=== PATIENT | female | born 2000 | race Caucasian/White ===

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

== ENCOUNTER → 2020-01-27 12:35 | Outpatient (BNVA) | payer MEDICAID, SELFPAY | PROVIDERS: PCP Family Medicine; Visit Provider Nurse Practitioner | DX: Z11.59 Encounter for screening for other viral diseases (principal) | CPT/HCPCS: 87635 ==

== ENCOUNTER → 2020-02-10 11:32 | Outpatient (BNVA) | payer MEDICAID, SELFPAY | PROVIDERS: PCP Family Medicine; Visit Provider Nurse Practitioner | DX: J02.9 Acute pharyngitis, unspecified (principal) | CPT/HCPCS: 87071; 87880 ==

== ENCOUNTER 2020-02-12 13:54 | Emergency (ER) | payer MEDICAID, SELFPAY ==
[2020-02-12 13:59] VITALS: BP 159/88; PULSE 98; RESP 18; TEMP 36.8; O2SAT 98; BMI 33.9
--- NOTE | 2020-02-12 14:08 | W.ED.WOUNDLC ---
HPI - Wound/Laceration General: Chief Complaint: Wound/Laceration Stated Complaint: cut finger/ poss workers comp Time Seen by Provider: 02/12/20 13:55 History of Present Illness: HPI narrative: 20-year-old female patient presents to the emergency department with right fourth finger laceration. 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 Bleeding has stopped upon exam. She reports her tetanus shot up-to-date with previous tetanus vaccine approximately 1 year ago. Onset (ago): hour(s) (2) Location: other (right 4th finger) Place: work Patient tetanus UTD: Yes Context: accidental Associated symptoms: Reports no associated symptoms; Denies chills, fever(s), nausea or vomiting Treatments prior to arrival: bandage Review of Systems General: Reports: 10 or more systems reviewed and unremarkable except in HPI and below Const: Denies: fever(s), chills or diaphoresis Eyes: Denies: blurry vision or eye redness ENMT: Denies: throat pain, dental pain or disequilibrium Card: Denies: chest pain, palpitations or irregular heart rhythm Resp: Denies: dyspnea, productive cough, non-productive cough or wheezing GI: Denies: abdominal pain, nausea or vomiting : Denies: difficulty voiding or dysuria Musc: Denies: back pain Skin/Breast: Reports: skin tenderness (rt 4th finger); Denies: rash or pruritus Neuro: Denies: headache(s), weakness in extremities or behavioral changes Trevor/Lymph: Denies: easy bruising PFS ED PFSH: Medical History (Updated 02/12/20 @ 14:32 by ROJAS Cardona) No pertinent past medical history neghx: htn,dm,thyroid,dvt/pe Surgical History S/P section (~12/23/18) per Dr. Acuna at [facility] [place] S/P cholecystectomy S/P wisdom tooth extraction Family History Mother Thyroid condition Hypertension Grandmother Breast cancer paternal Father Diabetes Heart disease Sister Thyroid condition Social History Smoking and tobacco status: current every day smoker Alcohol intake: never Additional social history: Tobacco use: Current everyday smoker; 0.25pk daily Alcohol use: Daily Drug use: 1/4 gram smoked at hs; has med marijuana card Female Reproductive History: Date of last menstrual period: 01/23/20 Para: 2 Spontaneous abortions: Yes (1) Physical Exam Const: COMMON NORMALS: no acute distress, patient oriented x3, healthy appearing and alert GENERAL APPEARANCE: cooperative, comfortable and well hydrated HENMT: COMMON NORMALS: normocephalic, Normal external nose present and moist oral mucous membranes HEAD & SCALP: normocephalic NOSE: Normal external nose present Eye: COMMON NORMALS: Equal, round and reactive pupils present and EOMs intact bilaterally GENERAL EYE: appearance normal, both eyes and all related structures PUPIL: Yes Equal, round and reactive pupils present Neck/C-Spine: COMMON NORMALS: full ROM and no lymphadenopathy GENERAL: Yes normal visual inspection and Yes trachea midline CERVICAL SPINE: Yes cervical ROM normal Lymph: LYMPHATIC: no lymphadenopathy noted Chest: COMMONS NORMALS: normal inspection of the chest Resp: COMMON NORMALS: normal respiratory effort and clear to auscultation bilaterally AUSCULTATION: clear to auscultation bilaterally Cardio: COMMON NORMALS: regular rhythm, S1 normal heart sound present and S2 normal heart sound present RHYTHM: regular rhythm HEART SOUNDS: S1 normal heart sound present and S2 normal heart sound present GI: COMMON NORMALS: Soft to palpation and non-tender INSPECTION: Yes normal to inspection PALPATION: Yes Soft to palpation : COMMON NORMALS: Yes no CVA tenderness BLADDER/KIDNEY EXAM: Yes no CVA tenderness Back/Pelvis: COMMON NORMALS: no CVA tenderness and thoracic and lumbar spine normal to inspection Extremity: COMMON NORMALS: normal to inspection, full ROM and capillary refill normal GENERAL: Yes normal exam except as noted Neuro: COMMON NORMALS: patient oriented x3 and no focal motor deficits SENSORIUM/ORIENTATION: Yes alert Psych: COMMON NORMALS: mental status grossly normal, Normal thought process present and cooperative ACTIVITY/MOTOR BEHAVIOR: Yes appropriate eye contact THOUGHT PROCESS: Normal thought process present Skin: COMMON NORMALS: no rashes or lesions noted and turgor normal GENERAL SKIN EXAM: no rashes or lesions noted and turgor normal RASHES: no rashes TRAUMA: laceration (superficial laceration to the ulnar distal tip of the 4th finger, small amount nail involvement, negative subungual hematoma/bleeding) linear and superficial; not actively bleeding, no foreign bodies present, not contaminated, does not involve subcutaneous tissue and does not involve muscle tissue Procedures Laceration Laceration 1: Site: hand (4th ulnar distal tip finger) Side (If applicable): right Size (cm): 1 Description: linear Depth: simple, single layer Amount of anesthesia used (mL): 0 Technique: other (skin adhesive) Course Vital Signs: Vital signs: Vital Signs Temperature 98.2 F 02/12/20 13:59 Pulse Rate 98 02/12/20 13:59 Respiratory Rate 18 02/12/20 13:59 Blood Pressure 159/88 02/12/20 13:59 Pulse Oximetry 98 02/12/20 13:59 Discharge Plan Discharge Patient Disposition: Home Clinical Impression: Superficial laceration Finger laceration Qualifiers: Encounter type: initial encounter Finger: ring finger Damage to nail status: with damage Foreign body presence: without foreign body Laterality: right Qualified Code(s): S61.314A - Laceration without foreign body of right ring finger with damage to nail, initial encounter Condition: Stable Prescriptions: No Action amoxicillin 875 mg tablet 875 mg PO Q12H 10 Days Qty: 20 RF: 0 Xulane 150-35 mcg/24 hr patch weekly 1 patch TRANSDERMA Q7D Qty: 9 RF: 3 Medical Marijuana See Rx Instructions .ROUTE .COMPLEX RF: 0 bupropion HCl 150 mg Tablet Extended Release 24 Hr 150 mg PO DAILY 30 Days Qty: 30 RF: 1 Discharge Orders: Discharge Order (Routine); Ordered 02/12/20 Ordered By: Jacquelin Cohen Referrals: Daniel Acuna MD [Primary Care Provider] - Discharge Diet: Usual diet Discharge Activity: Limit activity as instructed Patient Instructions: Laceration (ED), Skin Adhesive Care (ED) Activity Restrictions/Additional Instructions: keep the wound clean and dry Cover the wound while at work May apply bandaid as needed for comfort May apply Neosporin with lidocaine (available over the counter)as needed for pain return to the ED if you develop concerning symptoms Discharge Date/Time: 02/12/20 14:50 Coding Level of Care Code ED Saddle Mechanic for Alexg 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
== END 2020-02-12 14:50 | disposition home or self-care (01) ==
PROVIDERS: Emergency Provider Nurse Practitioner Family; PCP Family Medicine
DX: S61.314A Laceration without foreign body of right ring finger with damage to nail, initial encounter (principal); F17.210 Nicotine dependence, cigarettes, uncomplicated; W26.0XXA Contact with knife, initial encounter; Y99.0 Civilian activity done for income or pay
CPT/HCPCS: 12001; 12345; 99281; 99282

== ENCOUNTER → 2020-03-15 14:55 | Outpatient (BNVA) | payer MEDICAID, SELFPAY | PROVIDERS: PCP Family Medicine; Visit Provider Obstetrics & Gynecology | DX: N93.9 Abnormal uterine and vaginal bleeding, unspecified (principal) | CPT/HCPCS: 81025 ==

== ENCOUNTER 2020-03-22 18:22 | Emergency (ER) | payer MEDICAID, SELFPAY ==
[2020-03-22 18:25] VITALS: BP 149/97; PULSE 85; RESP 18; TEMP 36.1; O2SAT 100; BMI 34.1
--- NOTE | 2020-03-22 20:37 | ED_ITS ---
HPI - Nausea/Vomiting/Diarrhea General: Chief complaint: Nausea/Vomiting/Diarrhea Stated complaint: VOMIT, H/A, SOB Time Seen by Provider: 03/22/20 20:37 History of Present Illness: HPI Narrative: Patient is a 20-year-old female comes to the ED with headache, nausea vomiting. Patient says the headache started approximately a week ago. Headache is located in both the forehead and back of head and radiates up to the top of the head. Headache is rated a 7 out of 10. She denies any history of migraines or any headaches similar to this before. She says most the time her headaches only last for a day or 2 and the are treated with ibuprofen and Tylenol. She has been taking Tylenol and ibuprofen and it has not provided much headache relief. She started developing nausea and vomiting yesterday. Denies any neurological symptoms such as vision changes, numbness weakness to face or extremities. Patient endorses having some sinus drainage, congestion and pressure that started about a week ago right when headache started. denies any photophobia, fever, chills, chest pain, abdominal pain, diarrhea, constipation, dysuria or hematuria. Associated nausea: Yes Associated symtoms: Reports headache(s) and nausea; Denies change in vision, chest pain, dysuria, fatigue or palpitations Review of Systems Const: Denies: fever(s), chills or fatigue Eyes: Denies: change in vision or eye discomfort ENMT: Reports: sinus pain (Frontal sinus pain.); Denies: throat pain, odynophagia, nasal discharge or nasal congestion Card: Denies: chest pain, palpitations, edema, swelling of feet/ankles, dyspnea on exertion or orthopnea Resp: Denies: dyspnea, productive cough or non-productive cough GI: Reports: nausea and vomiting; Denies: abdominal pain, diarrhea, constipation or hematochezia : Denies: flank pain, dysuria or hematuria Musc: Denies: neck pain, back pain or extremity swelling Skin/Breast: Denies: rash or new lesions Neuro: Reports: headache(s); Denies: numbness in extremities or weakness in extremities PFS ED PFSH: Medical History No pertinent past medical history neghx: htn,dm,thyroid,dvt/pe Surgical History S/P section (~12/23/18) per Dr. Acuna at [facility] [place] S/P cholecystectomy S/P wisdom tooth extraction Family History Mother Thyroid condition Hypertension Grandmother Breast cancer paternal Father Diabetes Heart disease Sister Thyroid condition Social History Smoking and tobacco status: current every day smoker Alcohol intake: never Additional social history: Tobacco use: Current everyday smoker; 0.25pk daily Alcohol use: Daily Drug use: 1/4 gram smoked at hs; has med marijuana card Female Reproductive History: Date of last menstrual period: 01/23/20 Para: 2 Spontaneous abortions: Yes (1) Physical Exam Const: COMMON NORMALS: no acute distress, patient oriented x3 and alert GENERAL APPEARANCE: cooperative and comfortable HENMT: COMMON NORMALS: normocephalic HEAD & SCALP: normocephalic FACE & SINUS: sinus tenderness frontal (Bilateral tenderness.) MOUTH: Normal oral and palatal mucosa present THROAT: posterior oropharynx normal and uvula midline Eye: COMMON NORMALS: Equal, round and reactive pupils present, EOMs intact bilaterally, conjunctivae normal and normal visual benito by confrontation CONJUNCTIVA: Yes conjunctivae normal PUPIL: Yes Equal, round and reactive pupils present Neck/C-Spine: COMMON NORMALS: supple GENERAL: Yes normal visual inspection Resp: COMMON NORMALS: normal respiratory effort, No retractions, No use of accessory muscles and clear to auscultation bilaterally AUSCULTATION: clear to auscultation bilaterally Cardio: COMMON NORMALS: regular rate, regular rhythm, S1 normal heart sound present, S2 normal heart sound present, No gallops present (Cardio), No clicks present (Cardio), No murmurs present (Cardio) and Peripheral pulses 2+ throughout RATE: regular rate RHYTHM: regular rhythm HEART SOUNDS: S1 normal heart sound present and S2 normal heart sound present PERIPHERAL PULSE S: Peripheral pulses 2+ throughout GI: COMMON NORMALS: Normal to inspection, nondistended, normoactive bowel sounds present, Soft to palpation, non-tender and no masses PALPATION: Yes Soft to palpation : COMMON NORMALS: Yes no CVA tenderness BLADDER/KIDNEY EXAM: Yes no CVA tenderness Back/Pelvis: COMMON NORMALS: no CVA tenderness Extremity: COMMON NORMALS: normal to inspection and no pedal edema Neuro: COMMON NORMALS: patient oriented x3, CN's II-XII intact bilaterally, moves all extremities, no focal motor deficits and no sensory deficits noted SENSORIUM/ORIENTATION: Yes alert COORDINATION/BALANCE: [id number] test normal SPEECH: speech normal MOTOR EXAM: 5/5 motor strength present throughout COORDINATION: [id number] test normal Skin: GENERAL SKIN EXAM: dry skin Course Reevaluation(s): Reevaluation #1: After patient was given meds to treat headache she says her headache has improved and she now rates it a 2 or 3 out of 10. Vital Signs: Vital signs: Vital Signs Temperature 97.0 F L 03/22/20 18:25 Pulse Rate 79 03/22/20 23:31 Respiratory Rate 18 03/22/20 18:25 Blood Pressure 130/75 03/22/20 23:31 Pulse Oximetry 99 03/22/20 23:31 MDM - Nausea/Vomiting/Diarrhea MDM Narrative: Medical decision making narrative: Patient is a 20-year-old female comes to the ED with headache and sinus pain that started about a week ago. She just started developing nausea and vomiting in the last 24 hours. She has never had a headache like this before and has no history of migraines. Neuro exam was normal. Patient has some frontal sinus tenderness upon palpation bilaterally. CBC and CMP were unremarkable. CT of the head showed mild left sphenoid sinusitis, but no other acute intracranial findings. Patient was given IV fluids, Reglan, Toradol, Decadron and Benadryl while here in the ED and her headache greatly improved. Patient was diagnosed with headache and sinusitis. She was given a prescription of Augmentin, Zofran and Medrol Dosepak to treat sinusitis. Follow-up with PCP in 7 to 10 days for reevaluation. Return to ED precautions given. Patient understood and agreed with plan. Lab Data: Attestation: I reviewed the patient's lab results. Labs: Lab Results 03/22/20 03/22/20 03/22/20 Range/Units 20:58 20:58 20:58 WBC 10.5 (4.5-13.0) 10^3/ uL RBC 5.11 (4.1-5.3) 10^6/u L Hgb 14.8 (11.5-15.3) g/dL Hct 44.9 (37.0-47.0) % MCV 87.9 (81-99) fL MCH 29.0 (28.0-34.0) pg MCHC 33.0 (30.0-36.0) g/dL RDW 12.4 (12.1-15.1) % Plt Count 262 (130-400) 10^3/c mm MPV 11.0 H (7.4-10.4) fL Neut % (Auto) 59.0 % Lymph % (Auto) 34.7 % Dale % (Auto) 5.5 % Eos % (Auto) 0.3 % Baso % (Auto) 0.3 % Neut # (Auto) 6.19 (1.8-8.0) 10^3/u L Lymph # (Auto) 3.6 (1.5-6.5) 10^3/u L Dale # (Auto) 0.6 (0.2-0.9) 10^3/u L Eos # (Auto) 0.0 (0.0-0.8) 10^3/u L Baso # (Auto) 0.0 (0.0-0.1) 10^3/u L Nucleated RBC % (a uto) 0 % Nucleated RBCs # 0.0 /100WBC Sodium 139 (136-145) mmol/L Potassium 3.6 (3.5-5.1) mmol/L Chloride 102 (98-107) mmol/L Carbon Dioxide 25 (22-29) mmol/L Anion Gap 15.6 (5-19) BUN 6 (6-20) mg/dL Creatinine 0.6 (0.5-0.9) mg/dL GFR Calculation 127.5 (90-130) mL/min Glucose 87 (65-115) mg/dL Calculated Osmolal ity 285 (285-295) mOsm/k g Calcium 9.7 (8.5-10.5) mg/dL Total Bilirubin 0.4 (0.15-1.2) mg/dL AST 16 (0-32) U/L ALT 15 (0-33) U/L Alkaline Phosphata se 111 H (35-105) IU/L Total Protein 8.0 (6.6-8.7) g/dL Albumin 4.4 (3.5-5.2) g/dL Globulin 3.6 (1.3-4.6) g/dL Lipase 14 (13-60) U/L HCG, Qual Negative (Negative) Imaging Data^: CT Head: Attestation: I personally reviewed and interpreted this imaging study as follows: Radiologist's impression: [address] [address] [address] Scan Report Signed Patient: Komal Pryor Unit #: [id number] : 2000 Age/Sex: 20 / F ADM Date: 03/22/20 Loc: ER Room/Bed: Attending Dr: Ordering Provider/Ordering MD: Daniel Bradley Date of Service: 03/22/20 Procedure(s): CT head wo con* [id number] Accession Number(s): [id number] Report Number: [id number] PROCEDURE INFORMATION: Exam: CT Head Without Contrast Exam date and time: 03/22/2020 9:09 PM Age: 20 years old Clinical indication: Pain; Headache TECHNIQUE: Imaging protocol: Computed tomography of the head without contrast. Radiation optimization: All CT scans at this facility use at least one of these dose optimization techniques: automated exposure control; mA and/or kV adjustment per patient size (includes targeted exams where dose is matched to clinical indication); or iterative reconstruction. COMPARISON: No relevant prior studies available. RADIATION DOSE METRICS: Total DLP (mGy-cm): 735.48 FINDINGS: Brain: Normal. No hemorrhage. Unremarkable white matter. No mass effect. Cerebral ventricles: No ventriculomegaly. Bones/joints: Unremarkable. No acute fracture. Paranasal sinuses: Mild left sphenoid sinus disease which can produce vertex headaches. Mastoid air cells: Visualized mastoid air cells are well aerated. Soft tissues: Unremarkable. CT/CT head wo con* [id number] IMPRESSION: 1. Mild left sphenoid sinus disease which can produce vertex headaches. 2. No acute intracranial findings. Radiation Dose CTDIVOL = (mGy): DLP = 735.48 (mGy-cm) Dictated By: Winston Read MD Signed By: Winston Read MD Signed Date/Time: 03/22/202136 DD/ 35 Discharge Plan Discharge Patient Disposition: Home Clinical Impression: Headache Qualifiers: Headache type: unspecified Headache chronicity pattern: acute headache Intractability: not intractable Qualified Code(s): R51.9 - Headache, unspecified Sinusitis Qualifiers: Sinusitis location: unspecified location Chronicity: acute Recurrence: non- recurrent Qualified Code(s): J01.90 - Acute sinusitis, unspecified Condition: Stable Prescriptions: New Augmentin 500-125 mg tablet 1 tab PO BID 10 Days Qty: 20 RF: 0 methylprednisolone 4 mg tablets,dose pack See Rx Instructions .ROUTE .COMPLEX Qty: 21 RF: 0 Zofran 4 mg tablet 4 mg PO Q8H PRN (Reason: nausea and vomiting) Qty: 15 RF: 0 No Action Xulane 150-35 mcg/24 hr patch weekly 1 patch TRANSDERMA Q7D Qty: 9 RF: 3 ibuprofen 600 mg tablet 600 mg PO TID PRN (Reason: pain) Qty: 30 RF: 0 trazodone 50 mg tablet 50 mg PO BEDTIME@2200 RF: 0 Tylenol 325 mg Tablet 325 mg PO QID PRN (Reason: Pain) RF: 0 Medical Marijuana See Rx Instructions .ROUTE .COMPLEX RF: 0 Discharge Orders: Discharge ED (Routine); Ordered 03/22/20 Ordered By: Daniel Bradley Referrals: Daniel Acuna MD [Primary Care Provider] - Discharge Diet: Regular Discharge Activity: Increase activity as tolerated Patient Instructions: Sinusitis (ED), Acute Headache (ED) Activity Restrictions/Additional Instructions: Follow-up with medical provider as directed in 7 to 10 days for reevaluation. Take medications as prescribed. Take [id number] ibuprofen or Tylenol for any reoccurring headaches. Make sure to drink plenty of fluids and stay hydrated. Return to the ER or your medical provider if condition worsens. Please read and understand discharge instructions. If any questions, please ask. Coding Level of Care Code ED Director Educational Radio for Barb 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
--- NOTE | 2020-03-22 20:54 | CTR_ITS ---
PROCEDURE INFORMATION: Exam: CT Head Without Contrast Exam date and time: 03/22/2020 9:09 PM Age: 20 years old Clinical indication: Pain; Headache TECHNIQUE: Imaging protocol: Computed tomography of the head without contrast. Radiation optimization: All CT scans at this facility use at least one of these dose optimization techniques: automated exposure control; mA and/or kV adjustment per patient size (includes targeted exams where dose is matched to clinical indication); or iterative reconstruction. COMPARISON: No relevant prior studies available. RADIATION DOSE METRICS: Total DLP (mGy-cm): 735.48 FINDINGS: Brain: Normal. No hemorrhage. Unremarkable white matter. No mass effect. Cerebral ventricles: No ventriculomegaly. Bones/joints: Unremarkable. No acute fracture. Paranasal sinuses: Mild left sphenoid sinus disease which can produce vertex headaches. Mastoid air cells: Visualized mastoid air cells are well aerated. Soft tissues: Unremarkable. CT/CT head wo con* [id number] IMPRESSION: 1. Mild left sphenoid sinus disease which can produce vertex headaches. 2. No acute intracranial findings. Radiation Dose CTDIVOL = (mGy): DLP = 735.48 (mGy-cm)
[2020-03-22 21:13] LABS: Basophils % 0.3 %; Eosinophils % 0.3 %; Hematocrit 44.9 % (37.0-47.0); Hemoglobin 14.8 g/dL (11.5-15.3); Lymphocytes # 3.6 10^3/uL (1.5-6.5); Lymphocytes % 34.7 %; Mean Corpuscular Volume 87.9 fL (81-99); Monocytes # 0.6 10^3/uL (0.2-0.9); Monocytes % 5.5 %; Neutrophils # 6.19 10^3/uL (1.8-8.0); Nucleated Red Blood Cells % 0 %; Platelet Count 262 10^3/cmm (130-400); Red Blood Count 5.11 10^6/uL (4.1-5.3); Red Cell Distribution Width 12.4 % (12.1-15.1); White Blood Count 10.5 10^3/uL (4.5-13.0)
[2020-03-22 21:27] LABS: HCG, Serum Qual Negative (Negative)
[2020-03-22 21:35] LABS: Alanine Aminotransferase 15 U/L (0-33); Albumin Level 4.4 g/dL (3.5-5.2); Alkaline Phosphatase 111 IU/L (35-105); Anion Gap 15.6 (5-19); Aspartate Amino Transferase 16 U/L (0-32); Blood Urea Nitrogen 6 mg/dL (6-20); Calcium 9.7 mg/dL (8.5-10.5); Carbon Dioxide 25 mmol/L (22-29); Chloride 102 mmol/L (98-107); Globulin 3.6 g/dL (1.3-4.6); Glomerular Filtration Rate 127.5 mL/min (90-130); Glucose 87 mg/dL (65-115); Lipase 14 U/L (13-60); Osmolality Calculated 285 mOsm/kg (285-295); Potassium 3.6 mmol/L (3.5-5.1); Sodium 139 mmol/L (136-145); Total Bilirubin 0.4 mg/dL (0.15-1.2)
[2020-03-22] MEDS: dexamethasone 4 mg/mL INJ 10 MG IVP (21:57)
[2020-03-22] MEDS: diphenhydrAMINE 50 mg/mL SDV 1mL 25 MG IVP (21:58)
[2020-03-22] MEDS: metoclopramide 5 mg/mL SDV 2 mL 10 MG IVP (21:58)
[2020-03-22] MEDS: ketorolac 30 mg/mL INJ IVP (21:59)
[2020-03-22] MEDS: sodium chloride 0.9% 1,000 ML 999 ML IV (21:59)
[2020-03-22 22:10] VITALS: BP 125/78; PULSE 64; O2SAT 100
[2020-03-22 22:56] VITALS: BP 123/78; PULSE 82; O2SAT 100
[2020-03-22 23:31] VITALS: BP 130/75; PULSE 79; O2SAT 99
== END 2020-03-22 23:33 | disposition home or self-care (01) ==
PROVIDERS: Emergency Medicine; Emergency Provider Physician Assistant; PCP Family Medicine
DX: J01.90 Acute sinusitis, unspecified (principal); R51.9 Headache, unspecified; F17.210 Nicotine dependence, cigarettes, uncomplicated
CPT/HCPCS: 12345; 70450; 80053; 83690; 84703; 85025; 96361; 96374; 96375; 99283; J1100; J1200; J1885; J2765; J7030

== ENCOUNTER 2020-05-22 10:00 | Emergency (ER) | payer MEDICAID, SELFPAY ==
[2020-05-22 10:06] VITALS: BP 137/93; RESP 17; TEMP 37.2; BMI 33.7
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
[2020-05-22 11:05] VITALS: RESP 18; O2SAT 98
[2020-05-22] MEDS: orphenadrine 30 mg/mL Inj 2 mL 60 MG IVP (11:05)
[2020-05-22] MEDS: ketorolac 30 mg/mL INJ IVP (11:05)
[2020-05-22] MEDS: morphine 4 mg/mL SDV 1 mL IVP (11:05)
[2020-05-22 12:42] VITALS: PULSE 68; RESP 18; O2SAT 144
== END 2020-05-22 12:42 | disposition home or self-care (01) ==
PROVIDERS: Emergency Provider Family Medicine; PCP Family Medicine
DX: M54.6 Pain in thoracic spine (principal); M54.2 Cervicalgia; F17.210 Nicotine dependence, cigarettes, uncomplicated
CPT/HCPCS: 12345; 72125; 72128; 96374; 96375; 99281; 99283; J1885; J2270; J2360

== ENCOUNTER 2020-06-05 10:27 | Emergency (ER) | payer MEDICAID, SELFPAY ==
[2020-06-05 10:32] VITALS: BP 151/117; PULSE 88; RESP 18; TEMP 36.7; O2SAT 96; BMI 33.9
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
[2020-06-05 11:48] LABS: Add Urine Microscopic? YES; Bilirubin Urine Neg (Negative); Blood Urine Neg (Negative); Glucose Urine UA Norm (Normal); Ketones Urine Negative (Negative); Leukocyte Esterase Urine 1+ (Negative); Nitrate Urine Negative (Negative); Protein Urine Neg (Negative); Urine Appearance SL Hazy (CLEAR); Urine Color Dark Yellow (Yellow); Urobilinogen Urine Norm (Negative); pH Urine 6.5 (5-7)
[2020-06-05 11:49] LABS: Add Urine Culture? No; Bacteria Urine 1+ /hpf; Mucus Urine 1+ /hpf; Squamous Epithelial Cell Urine 0-4 /hpf (0-5)
[2020-06-05] MEDS: LORazepam 0.5 mg Tablet PO (11:51)
[2020-06-05 11:53] VITALS: BP 128/87; PULSE 86; RESP 14; O2SAT 100
[2020-06-05 11:58] LABS: Basophils % 0.4 %; Eosinophils % 0.4 %; Hemoglobin 13.6 g/dL (11.5-15.3); Lymphocytes % 26.6 %; Mean Corpuscular HGB Conc 31.6 g/dL (30.0-36.0); Mean Corpuscular Hemoglobin 28.6 pg (28.0-34.0); Mean Corpuscular Volume 90.3 fL (81-99); Mean Platelet Volume 11.2 fL (7.4-10.4); Monocytes # 0.5 10^3/uL (0.2-0.9); Monocytes % 6.7 %; Neutrophils # 5.01 10^3/uL (1.8-8.0); Neutrophils % 65.6 %; Nucleated Red Blood Cells % 0 %; Platelet Count 226 10^3/cmm (130-400); Red Blood Count 4.76 10^6/uL (4.1-5.3); Red Cell Distribution Width 11.9 % (12.1-15.1); White Blood Count 7.6 10^3/uL (4.5-13.0)
[2020-06-05] MEDS: acetaminophen 500 mg Tablet 1000 MG PO (12:47)
[2020-06-05 12:50] LABS: Alanine Aminotransferase 16 U/L (0-33); Albumin Level 3.7 g/dL (3.5-5.2); Alkaline Phosphatase 87 IU/L (35-105); Anion Gap 10.8 (5-19); Aspartate Amino Transferase 16 U/L (0-32); Blood Urea Nitrogen 7 mg/dL (6-20); Calcium 9.2 mg/dL (8.5-10.5); Carbon Dioxide 25 mmol/L (22-29); Chloride 105 mmol/L (98-107); Globulin 3.4 g/dL (1.3-4.6); Glomerular Filtration Rate 127.5 mL/min (90-130); Glucose 83 mg/dL (65-115); Osmolality Calculated 281 mOsm/kg (285-295); Potassium 3.8 mmol/L (3.5-5.1); Sodium 137 mmol/L (136-145); Total Bilirubin 0.4 mg/dL (0.15-1.2); Total Protein 7.1 g/dL (6.6-8.7)
[2020-06-05 14:40] LABS: HIV 1 & 2 Antibody Non-Reactive (Non-Reactiv); HIV 1 & 2 Antigen Non-Reactive (Non-Reactiv)
[2020-06-05 17:17] LABS: Hepatitis A Antibody IgM Non-Reactive (Nonreactive); Hepatitis B Core IgM Non-Reactive (Nonreactive); Hepatitis B Surface Antigen Non-Reactive (Nonreactive); Hepatitis C Virus Antibody Non-Reactive (Nonreactive)
== END 2020-06-05 13:02 ==
PROVIDERS: Emergency Provider Nurse Practitioner Family; PCP Family Medicine
DX: T74.21XA Adult sexual abuse, confirmed, initial encounter (principal); F17.210 Nicotine dependence, cigarettes, uncomplicated
CPT/HCPCS: 36415; 80053; 80074; 81001; 81025; 85025; 87491; 87591; 87806; 99283

== ENCOUNTER → 2020-08-26 09:47 | Outpatient (BNVA) | payer MEDICAID, SELFPAY | PROVIDERS: PCP Family Medicine; Visit Provider Social Worker | DX: F41.1 Generalized anxiety disorder (principal); F41.0 Panic disorder [episodic paroxysmal anxiety]; F32.9 Major depressive disorder, single episode, unspecified; F60.3 Borderline personality disorder | CPT/HCPCS: 90834 ==

== ENCOUNTER → 2020-09-01 08:43 | Outpatient (BNVA) | payer MEDICAID, SELFPAY | PROVIDERS: PCP Family Medicine; Visit Provider Social Worker | DX: F41.1 Generalized anxiety disorder (principal); F41.0 Panic disorder [episodic paroxysmal anxiety]; F32.9 Major depressive disorder, single episode, unspecified; F60.3 Borderline personality disorder | CPT/HCPCS: 90834 ==

== ENCOUNTER 2020-09-04 13:25 | Emergency (ER) | payer MEDICAID, SELFPAY ==
[2020-09-04 13:29] VITALS: BP 129/85; PULSE 90; RESP 18; TEMP 37.1; O2SAT 100; BMI 34.9
--- NOTE | 2020-09-04 13:39 | ECG_ITS ---
[facility] Test Date: 2020-09-04 Pat Name: Komal Pryor Department: Room: Gender: Female Histology Assistant: : 2000 Requested By: Ihsan Souza Order Number: [id number] Michaela MD: Dani Palmer M.D. Measurements Intervals Raymond Rate: 101 P: 66 WY: 137 QRS: 63 QRSD: 106 T: 7 QT: 293 QTc: 381 Interpretive Statements SINUS TACHYCARDIA NONSPECIFIC T-WAVE ABNORMALITY Compared to ECG 10/29/2019 20:01:11 T-wave abnormality now present Sinus rhythm no longer present Sinus arrhythmia no longer present Electronically Signed On 09-04-2020 16:47:53 CDT by Dani Palmer M.D. [id number]
--- NOTE | 2020-09-04 13:39 | ED_ITS ---
HPI - Allergic Reaction General: Chief complaint: Allergic Reaction Stated complaint: POSSIBLE ALERGIC REACTION Time Seen by Provider: 09/04/20 13:35 Source: patient and RN notes reviewed Mode of arrival: ambulatory History of Present Illness: HPI narrative: This patient presents to the emergency department 20-year-old female with a complaint of acute allergic reaction. [place] and a Pepsi and was walking back with a friend suddenly became short of breath developed a rash and itching. Patient states she has no known allergies. Patient denies any insect stings. Patient states she is having difficulty swallowing severe itching and a rash patient describes mild shortness of breath. MD complaint: allergic reaction and hives Onset (ago): minute(s) Exposure: unknown Associated symptoms: Reports difficulty breathing, dysphagia and rash; Deny hoarseness Severity: moderate Treatment prior to arrival: none Previous Allergic Reaction History: none Review of Systems General: Reports: 10 or more systems reviewed and unremarkable except in HPI and below Const: Denies: fever(s), chills, body aches or fatigue Eyes: Denies: change in vision or blurry vision ENMT: Denies: throat pain, hoarseness or mouth pain Card: Denies: chest pain, palpitations, irregular heart rhythm, edema, swelling of feet/ankles or lightheadedness Resp: Reports: dyspnea; Denies: productive cough, non-productive cough, wheezing or pain on inspiration GI: Reports: dysphagia : Reports: flank pain; Denies: difficulty voiding, dysuria, urinary frequency, urinary urgency or urinary hesitancy Musc: Denies: neck pain, back pain, extremity pain, extremity swelling, joint pain, joint swelling, joint redness, joint warmth or limited range of motion Skin/Breast: Reports: rash, pruritus and erythema; Denies: skin tenderness Neuro: Denies: headache(s), numbness in extremities or weakness in extremities Psych: Denies: anxiety or depression PFSH ED PFSH: Medical History (Updated 09/04/20 @ 15:02 by Ihsan Souza MD) No pertinent past medical history neghx: htn,dm,thyroid,dvt/pe Surgical History S/P section (~12/23/18) per Dr. Acuna at [facility] S/P cholecystectomy S/P wisdom tooth extraction Family History Mother Thyroid condition Hypertension Grandmother Breast cancer paternal Father Diabetes Heart disease Sister Thyroid condition Social History Smoking and tobacco status: current every day smoker Alcohol intake: never Additional social history: Tobacco use: Current everyday smoker; 0.25pk daily Alcohol use: Daily Drug use: 1/4 gram smoked at hs; has med marijuana card Female Reproductive History: Date of last menstrual period: 01/23/20 Para: 2 Spontaneous abortions: Yes (1) Physical Exam Const: COMMON NORMALS: no acute distress, average body habitus, patient oriented x3, no limitations, healthy appearing, alert and well nourished HENMT: COMMON NORMALS: normocephalic, atraumatic, external ears normal, EAC's normal, TM's normal bilaterally, Normal external nose present and Normal nasal mucous membranes and turbinates present HEAD & SCALP: normocephalic and atraumatic NOSE: Normal external nose present and Normal nasal mucous membranes and turbinates present EXTERNAL EAR: Yes external ears normal EXTERNAL AUDITORY CANAL: EAC's normal TYMPANIC MEMBRANE: TM's normal bilaterally Neck/C-Spine: COMMON NORMALS: full ROM, no lymphadenopathy, supple, no meningeal signs, no JVD, Thyroid normal and No carotid bruits THYROID: Thyroid normal Chest: COMMONS NORMALS: normal inspection of the chest, normal palpation of entire chest wall, normal inspection of the breasts and normal palpation of the breasts Breast/axilla inspection: Yes normal inspection of the breasts BREAST/AXILLA PALPATION: Yes normal palpation of the breasts Resp: COMMON NORMALS: normal respiratory effort, No retractions, No use of accessory muscles, clear to auscultation bilaterally and percussion normal AUSCULTATION: clear to auscultation bilaterally PERCUSSION: percussion normal Cardio: COMMON NORMALS: no JVD, regular rate, regular rhythm, S1 normal heart sound present, S2 normal heart sound present, No gallops present (Cardio), No clicks present (Cardio), No murmurs present (Cardio), No rub (Cardio) and Peripheral pulses 2+ throughout RATE: regular rate RHYTHM: regular rhythm HEART SOUNDS: S1 normal heart sound present and S2 normal heart sound present PERIPHERAL PULSES: Peripheral pulses 2+ throughout GI: COMMON NORMALS: Normal to inspection, nondistended, normoactive bowel sounds present, Soft to palpation, non-tender, No hepatosplenomegaly present, no masses and no bruits PALPATION: Yes Soft to palpation and Yes No hepatosplenomegaly present : COMMON NORMALS: Yes no CVA tenderness, Yes normal external appearance, Yes normal appearance of the vagina, Yes normal appearance of the cervix, Yes normal bimanual exam, Yes No adnexal tenderness and Yes no masses BLADDER/KIDNEY EXAM: Yes no CVA tenderness BIMANUAL EXAM - VAGINA & UTERUS: Yes normal b imanual exam Back/Pelvis: COMMON NORMALS: no CVA tenderness, thoracic and lumbar spine normal to inspection, no thoracic nor lumbar tenderness, thoraco-lumbar ROM normal and straight leg raise negative bilaterally Extremity: COMMON NORMALS: normal to inspection, full ROM, capillary refill no rmal, no joint enlargement, no clubbing, cyanosis or edema, no calf tenderness and no pedal edema Neuro: COMMON NORMALS: patient oriented x3 SENSORIUM/ORIENTATION: Yes alert MENINGEAL SIGNS: Yes no meningeal signs Skin: NARRATIVE SKIN EXAM: Patient has redness consistent with this sunburn but does have you to care to have a rash underlying this with the itching. Course Reevaluation(s): Reevaluation #1: Patient much improved states symptoms are resolving. Patient be discharged home Keep a food log as discussed. Continue Benadryl 25 mg every 6-8 hours as needed until symptoms resolve. Follow-up with PCP in 2 to 3 days. Return to the emergency department symptoms fail to improve or worsen. Time: 15:01 Vital Signs: Vital signs: Vital Signs Temperature 98.7 F 09/04/20 13:29 Pulse Rate 90 09/04/20 13:29 Respiratory Rate 18 09/04/20 13:29 Blood Pressure 129/85 09/04/20 13:29 Pulse Oximetry 100 09/04/20 13:29 MDM - Allergic Reaction MDM Narrative: Medical decision making narrative: This patient presents to the emergency department 20-year-old female with a complaint of acute allergic reaction. [place]i and was walking back with a friend suddenly became short of breath developed a rash and itching. Patient states she has no known allergies. Patient denies any insect stings. Patient states she is having difficulty sw allowing severe itching and a rash patient describes mild shortness of breath. Patient much improved states symptoms are resolving. Patient be discharged home Keep a food log as discussed. Continue Benadryl 25 mg every 6-8 hours as needed until symptoms resolve. Follow-up with PCP in 2 to 3 days. Return to the emergency department symptoms fail to improve or worsen. Medical Records: Attestation: I reviewed the patient's medical records. Lab Data: Attestation: I reviewed the patient's lab results. Imaging Data^: CXR: Radiologist's impression: FINDINGS: Lungs: No consolidation. Pleural spaces: Unremarkable. No pleural effusion. No pneumothorax. Heart/Mediastinum: No cardiomegaly. Bones/joints: No acute fracture. XR/XR chest 1V portable [id number] IMPRESSION: No acute findings. EKG Data^: EKG 1: Attestation: I personally reviewed and interpreted this EKG as follows: EKG interpretation date: 09/04/20 EKG interpretation time: 14:26 Prior EKG tracings: not available for review Interpretation: Sinus rhythm sinus tach with heart rate of 101 otherwise normal EKG Discharge Plan Discharge Patient Disposition: Home Clinical Impression: Allergic reaction Condition: Stable Prescriptions: No Action trazodone 50 mg tablet 50 mg PO BEDTIME@2200 RF: 0 Discharge Orders: Discharge ED (Routine); Ordered 09/04/20 Ordered By: Ihsan Souza Referrals: Daniel Acuna MD [Primary Care Provider] - Discharge Diet: Advance as tolerated Discharge Activity: Resume usual activity Patient Instructions: Opioid Safety Activity Restrictions/Additional Instructions: Keep a food log as discussed. Continue Benadryl 25 mg every 6-8 hours as needed until symptoms resolve. Follow-up with PCP in 2 to 3 days. Return to the [facility] department symptoms fail to improve or worsen. Coding Level of Care Code ED Cloth Spreader for Barb Chappell Exam Comprehensive
--- NOTE | 2020-09-04 13:39 | XRR_ITS ---
PROCEDURE INFORMATION: Exam: XR Chest Exam date and time: 09/04/2020 1:40 PM Age: 20 years old Clinical indication: Shortness of breath; Additional info: Cough TECHNIQUE: Imaging protocol: XR of the chest. Views: 1 view. COMPARISON: CR Ribs RIGHT w PA Chest [id number] 03/28/2018 9:52 PM FINDINGS: Lungs: No consolidation. Pleural spaces: Unremarkable. No pleural effusion. No pneumothorax. Heart/Mediastinum: No cardiomegaly. Bones/joints: No acute fracture. XR/XR chest 1V portable [id number] IMPRESSION: No acute findings.
[2020-09-04] MEDS: EPINEPHrine 1 mg/mL INJ 0.3 MG IM (13:46)
[2020-09-04] MEDS: diphenhydrAMINE 50 mg/mL SDV 1mL IVP (13:47)
[2020-09-04 15:14] VITALS: BP 126/70; PULSE 99; RESP 16; O2SAT 99
== END 2020-09-04 15:15 | disposition home or self-care (01) ==
PROVIDERS: Emergency Provider Emergency Medicine; PCP Family Medicine
DX: T78.40XA Allergy, unspecified, initial encounter (principal); F17.210 Nicotine dependence, cigarettes, uncomplicated
CPT/HCPCS: 71045; 93005; 96372; 96374; 96375; 99283; J0171; J1200; J2930

== ENCOUNTER → 2020-09-20 09:47 | Outpatient (BNVA) | payer MEDICAID, SELFPAY | PROVIDERS: PCP Family Medicine; Visit Provider Social Worker | DX: F41.1 Generalized anxiety disorder (principal); F41.0 Panic disorder [episodic paroxysmal anxiety]; F32.9 Major depressive disorder, single episode, unspecified; F60.3 Borderline personality disorder | CPT/HCPCS: 90834 ==

== ENCOUNTER → 2020-10-07 08:23 | Outpatient (BNVA) | payer MEDICAID, SELFPAY | PROVIDERS: PCP Family Medicine; Visit Provider Psychiatry & Neurology Psychiatry | DX: F41.1 Generalized anxiety disorder (principal) | CPT/HCPCS: 90792 ==

== ENCOUNTER → 2020-10-08 10:44 | Outpatient (BNVA) | payer MEDICAID, SELFPAY | PROVIDERS: PCP Family Medicine; Visit Provider Social Worker | DX: F41.1 Generalized anxiety disorder (principal); F41.0 Panic disorder [episodic paroxysmal anxiety]; F32.0 Major depressive disorder, single episode, mild; F60.3 Borderline personality disorder | CPT/HCPCS: 90834 ==

== ENCOUNTER 2020-10-09 21:21 | Emergency (ER) | payer MEDICAID, SELFPAY ==
[2020-10-09 21:56] VITALS: BP 145/101; PULSE 90; RESP 18; TEMP 36.9; O2SAT 98; BMI 36.6
--- NOTE | 2020-10-09 22:17 | USR_ITS ---
PROCEDURE INFORMATION: Exam: US Pelvis, Transvaginal Exam date and time: 10/09/2020 10:17 PM Age: 20 years old Clinical indication: Pelvic pain; Additional info: R lower pelvic pain TECHNIQUE: Imaging protocol: Real-time transvaginal pelvic ultrasound with image documentation. Transvaginal imaging was used for better evaluation of the endometrium, adnexa, and/or cervix. COMPARISON: US transvaginal [id number] 08/24/2019 10:13 PM FINDINGS: Uterus/cervix: Uterus is normal. Endometrial stripe is normal. Right adnexa: Right ovary 10 mm cyst is likely follicular. Right ovary demonstrates color blood flow. Left adnexa: Normal. No mass. Normal ovarian blood flow. Intraperitoneal space: Moderate nonspecific fluid in the pelvis. US/US transvaginal [id number] IMPRESSION: 1. Moderate nonspecific fluid in the pelvis. 2. Right ovary 10 mm cyst is likely follicular.
[2020-10-09 22:26] LABS: Basophils # 0.1 10^3/uL (0.0-0.1); Basophils % 0.4 %; Eosinophils # 0.1 10^3/uL (0.0-0.8); Eosinophils % 0.9 %; Hematocrit 43.2 % (37.0-47.0); Hemoglobin 14.1 g/dL (11.5-15.3); Lymphocytes # 4.6 10^3/uL (1.5-6.5); Lymphocytes % 39.9 %; Mean Corpuscular HGB Conc 32.6 g/dL (30.0-36.0); Mean Corpuscular Hemoglobin 29.6 pg (28.0-34.0); Mean Corpuscular Volume 90.8 fL (81-99); Mean Platelet Volume 11.1 fL (7.4-10.4); Monocytes # 0.9 10^3/uL (0.2-0.9); Monocytes % 7.5 %; Neutrophils # 5.83 10^3/uL (1.8-8.0); Nucleated Red Blood Cells % 0 %; Platelet Count 224 10^3/cmm (130-400); Red Blood Count 4.76 10^6/uL (4.1-5.3); Red Cell Distribution Width 12.3 % (12.1-15.1); White Blood Count 11.4 10^3/uL (4.5-13.0)
--- NOTE | 2020-10-09 22:30 | ED_ITS ---
HPI - Abdominal Pain General: Chief Complaint: Abdominal Pain Stated Complaint: LOWER R ABD PAIN Time Seen by Provider: 10/09/20 22:00 Source: patient Mode of arrival: ambulatory Limitations: no limitations History of Present Illness: HPI narrative: Patient is a 20-year-old female who presents to ED today with complaint of right lower abdominal/pelvic pain that began yesterday and has progressively worsened. She is describing the pain is very sharp. She has not had any nausea or vomiting. She is having normal bowel movements. She does not complain of any urinary symptoms. Denies vaginal discharge, vaginal odor, dyspareunia, new sexual partners, or concerns for STDs. MD elicited complaint: abdominal pain (pelvic pain) Onset (ago): day(s) (yesterday) Pain Consistency: constant Location: RLQ and Pelvis Severity: severe Quality: stabbing and sharp Radiation: none Migration to: no migration Exacerbating factors: nothing Relieving factors: nothing Associated Symptoms: Denies chills, diarrhea, dysuria, fever(s), nausea and vomiting Treatments prior to arrival: other (tylenol/ibuprofen) Related Data: Date of Last Menstrual Period: 09/27/20 Patient : No Review of Systems Const: Denies: fever(s), chills, body aches, fatigue or malaise Card: Denies: chest pain Resp: Denies: dyspnea GI: Reports: abdominal pain; Denies: nausea, vomiting or diarrhea : Reports: pelvic pain; Denies: flank pain, difficulty voiding, dysuria, urinary frequency, urinary urgency, urinary hesitancy, genital lesions, genital pruritis, vaginal odor, vaginal bleeding, vaginal discharge or dyspareunia Musc: Denies: back pain Skin/Breast: Denies: rash Neuro: Denies: headache(s) PFS ED PFSH: Medical History (Updated 10/10/20 @ 00:12 by PRINCESS Doherty) No pertinent past medical history neghx: htn,dm,thyroid,dvt/pe Surgical History S/[place] (~12/23/18[place] [facility] [place] S/P wisdom tooth extraction Family History Mother Thyroid condition Hypertension Grandmother Breast cancer paternal Father Diabetes Heart disease Sister Thyroid condition Social History Smoking and tobacco status: current every day smoker Alcohol intake: never Additional social history: Tobacco use: Current everyday smoker; 0.25pk daily Alcohol use: Daily Drug use: 1/4 gram smoked at hs; has med marijuana card Female Reproductive History: Date of last menstrual period: 09/27/20 Para: 2 Spontaneous abortions: Yes (1) Physical Exam Const: COMMON NORMALS: no acute distress, patient oriented x3, no limitations and alert GENERAL APPEARANCE: cooperative NUTRITIONAL APPEARANCE: overweight Resp: COMMON NORMALS: normal respiratory effort and clear to auscultation bilaterally AUSCULTATION: clear to auscultation bilaterally Cardio: COMMON NORMALS: regular rate and regular rhythm RATE: regular rate RHYTHM: regular rhythm GI: COMMON NORMALS: Normal to inspection, nondistended, normoactive bowel sounds present, Soft to palpation and No hepatosplenomegaly present AUSCULTATION: Yes normoactive bowel sounds PALPATION: Yes Soft to palpation, Yes Tenderness to palpation present (GI) (RLQ, R pelvis) and Yes No hepatosplenomegaly present : COMMON NORMALS: Yes no CVA tenderness BLADDER/KIDNEY EXAM: Yes no CVA tenderness Back/Pelvis: COMMON NORMALS: no CVA tenderness Extremity: COMMON NORMALS: normal to inspection Neuro: COMMON NORMALS: patient oriented x3 SENSORIUM/ORIENTATION: Yes alert Skin: COMMON NORMALS: no rashes or lesions noted GENERAL SKIN EXAM: no rashes or lesions noted Course Vital Signs: Vital signs: Vital Signs Temperature 98.4 F 10/09/20 21:56 Pulse Rate 71 10/10/20 00:15 Respiratory Rate 19 H 10/10/20 00:15 Blood Pressure 131/83 10/10/20 00:15 Pulse Oximetry 100 10/10/20 00:15 MDM - Abdominal Pain MDM Narrative: Medical decision making narrative: US was ordered initially and [employer] Kitchen tech's verbal report was that the ultrasound was normal thus CT imaging was obtained to try and find source of pts pain. After CT imaging official US report came back which did show a right 10mm ovarian cyst. CT scan confirmed this-did not see anything else acute. Vitals are stable. Labs are unremarkable. Patient will be given pain meds and recommend follow up with PCP or [facility] if sympoms persist. Lab Data: Attestation: I reviewed the patient's lab results. Labs: Lab Results 10/09/20 10/09/20 10/09/20 Range/Units 22:20 22:20 22:20 WBC 11.4 (4.5-13.0) 10^3/ uL RBC 4.76 (4.1-5.3) 10^6/u L Hgb 14.1 (11.5-15.3) g/dL Hct 43.2 (37.0-47.0) % MCV 90.8 (81-99) fL MCH 29.6 (28.0-34.0) pg MCHC 32.6 (30.0-36.0) g/dL RDW 12.3 (12.1-15.1) % Plt Count 224 (130-400) 10^3/c mm MPV 11.1 H (7.4-10.4) fL Neut % (Auto) 51.0 % Lymph % (Auto) 39.9 % Stephens % (Auto) 7.5 % Eos % (Auto) 0.9 % Baso % (Auto) 0.4 % Neut # (Auto) 5.83 (1.8-8.0) 10^3/u L Lymph # (Auto) 4.6 (1.5-6.5) 10^3/u L Stephens # (Auto) 0.9 (0.2-0.9) 10^3/u L Eos # (Auto) 0.1 (0.0-0.8) 10^3/u L Baso # (Auto) 0.1 (0.0-0.1) 10^3/u L Nucleated RBC % (a uto) 0 % Nucleated RBCs # 0.0 /100WBC Sodium 138 (136-145) mmol/L Potassium 3.8 (3.5-5.1) mmol/L Chloride 103 (98-107) mmol/L Carbon Dioxide 27 (22-29) mmol/L Anion Gap 11.8 (5-19) BUN 9 (6-20) mg/dL Creatinine 0.6 (0.5-0.9) mg/dL GFR Calculation 127.5 (90-130) mL/min Glucose 82 (65-115) mg/dL Calculated Osmolal ity 284 L (285-295) mOsm/k g Calcium 8.7 (8.5-10.5) mg/dL Total Bilirubin 0.2 (0.15-1.2) mg/dL AST 20 (0-32) U/L ALT 20 (0-33) U/L Alkaline Phosphata se 88 (35-105) IU/L Total Protein 6.8 (6.6-8.7) g/dL Albumin 4.0 (3.5-5.2) g/dL Globulin 2.8 (1.3-4.6) g/dL HCG, Qual Negative (Negative) Urine Color (Yellow) Urine Appearance (CLEAR) Urine pH (5-7) Ur Specific Gravit y (1.005-1.030) Urine Protein (Negative) Urine Glucose (UA) (Normal) Urine Ketones (Negative) Urine Blood (Negative) Urine Nitrate (Negative) Urine Bilirubin (Negative) Urine Urobilinogen (Negative) mg/dL Ur Leukocyte Jackie ase (Negative) Urine RBC (0-2) /hpf Urine WBC (0-5) /hpf Ur Squamous Epith Cells (0-5) /hpf Amorphous Sediment Urine Bacteria (NONE) /hpf Urine Mucus /hpf 10/09/ Range/Units 22:29 WBC (4.5-13.0) 10^3/ uL RBC (4.1-5.3) 10^6/u L Hgb (11.5-15.3) g/dL Hct (37.0-47.0) % MCV (81-99) fL MCH (28.0-34.0) pg MCHC (30.0-36.0) g/dL RDW (12.1-15.1) % Plt Count (130-400) 10^3/c mm MPV (7.4-10.4) fL Neut % (Auto) % Lymph % (Auto) % Stephens % (Auto) % Eos % (Auto) % Baso % (Auto) % Neut # (Auto) (1.8-8.0) 10^3/u L Lymph # (Auto) (1.5-6.5) 10^3/u L Stephens # (Auto) (0.2-0.9) 10^3/u L Eos # (Auto) (0.0-0.8) 10^3/u L Baso # (Auto) (0.0-0.1) 10^3/u L Nucleated RBC % (a uto) % Nucleated RBCs # /100WBC Sodium (136-145) mmol/L Potassium (3.5-5.1) mmol/L Chloride (98-107) mmol/L Carbon Dioxide (22-29) mmol/L Anion Gap (5-19) BUN (6-20) mg/dL Creatinine (0.5-0.9) mg/dL GFR Calculation (90-130) mL/min Glucose (65-115) mg/dL Calculated Osmolal ity (285-295) mOsm/k g Calcium (8.5-10.5) mg/dL Total Bilirubin (0.15-1.2) mg/dL AST (0-32) U/L ALT (0-33) U/L Alkaline Phosphata se (35-105) IU/L Total Protein (6.6-8.7) g/dL Albumin (3.5-5.2) g/dL Globulin (1.3-4.6) g/dL HCG, Qual (Negative) Urine Color Yellow (Yellow) Urine Appearance Clear (CLEAR) Urine pH 6 (5-7) Ur Specific Gravit y 1.015 (1.005-1.030) Urine Protein Neg (Negative) Urine Glucose (UA) Norm (Normal) Urine Ketones Negative (Negative) Urine Blood Neg (Negative) Urine Nitrate Negative (Negative) Urine Bilirubin Neg (Negative) Urine Urobilinogen Norm (Negative) mg/dL Ur Leukocyte Jackie ase Trace H (Negative) Urine RBC None (0-2) /hpf Urine WBC 5-10 H (0-5) /hpf Ur Squamous Epith Cells 5-10 H (0-5) /hpf Amorphous Sediment Not Reportable Urine Bacteria 1+ H (NONE) /hpf Urine Mucus 1+ /hpf Imaging Data ^: US transvaginal: Radiologist's impression: [place] [address] [id number] ReportSigned Patient: Paolo Pryor #: [id number]: 2000Acct#:[id number]/Sex: 20 / FADM Date: 10/09/20Loc: ERRoom/Bed:Attending Dr: Ordering Provider/Ordering MD: Randi Luna Date of Service: 10/09/20 Procedure(s): US transvaginal [id number] Accession Number(s): [id number] Report Number: [id number] PROCEDURE INFORMATION: Exam: US Pelvis, Transvaginal Exam date and time: 10/09/2020 10:17 PM Age: 20 years old Clinical indication: Pelvic pain; Additional info: R lower pelvic pain TECHNIQUE: Imaging protocol: Real-time transvaginal pelvic ultrasound with image documentation. Transvaginal imaging was used for better evaluation of the endometrium, adnexa, and/or cervix. COMPARISON: US transvaginal [id number] 08/24/2019 10:13 PM FINDINGS: Uterus/cervix: Uterus is normal. Endometrial stripe is normal. Right adnexa: Right ovary 10 mm cyst is likely follicular. Right ovary demonstrates color blood flow. Left adnexa: Normal. No mass. Normal ovarian blood flow. Intraperitoneal space: Moderate nonspecific fluid in the pelvis. US/US transvaginal [id number] IMPRESSION: 1. Moderate nonspecific fluid in the pelvis. 2. Right ovary 10 mm cyst is likely follicular. Dictated By:Maciel Stark MDSigned By:Maciel Stark MDSigned Date/Time:10/09/202337DD/ 35 CT Abd/Pel: Radiologist's impression: [address] [address] [address] Scan Report Signed Patient: Komal Pryor Unit #: [id number] : 2000 Age/Sex: 20 / F ADM Date: 10/09/20 Loc: ER Room/Bed: Attending Dr: Ordering Provider/Ordering MD: Randi Luna Date of Service: 10/09/20 Procedure(s): CT abdomen pelvis w con* [id number] Accession Number(s): [id number] Report Number: [id number] PROCEDURE INFORMATION: Exam: CT Abdomen And Pelvis With Contrast Exam date and time: 10/09/2020 11:17 PM Age: 20 years old Clinical indication: Abdominal pain; Localized; Right lower quadrant (rlq); Prior surgery; Surgery date: 6+ months; Surgery type: Gb, c-sect; Patient HX: C/O pelvic/rlq pain; Additional info: R lower abdominal/pelvic pain TECHNIQUE: Imaging protocol: Computed tomography of the abdomen and pelvis with contrast. Radiation optimization: All CT scans at this facility use at least one of these dose optimization techniques: automated exposure control; mA and/or kV adjustment per patient size (includes targeted exams where dose is matched to clinical indication); or iterative reconstruction. Contrast material: OMNI 300; Contrast volume: 95 ml; Contrast route: INTRAVENOUS (IV); COMPARISON: MR pelvis wo/w con [id number] 10/22/2019 1:46 PM RADIATION DOSE METRICS: Total DLP (mGy-cm): 1656.1 FINDINGS: Liver: Normal. No mass. Gallbladder and bile ducts: Cholecystectomy. Pancreas: Normal. No ductal dilation. Spleen: Normal. No splenomegaly. Adrenal glands: Normal. No mass. Kidneys and ureters: Normal. No hydronephrosis. Stomach and bowel: Constipation. Appendix: No evidence of appendicitis. Intraperitoneal space: Small amount of nonspecific fluid in the pelvis. Vasculature: Unremarkable. No abdominal aortic aneurysm. Lymph nodes: Unremarkable. No enlarged lymph nodes. Urinary bladder: Unremarkable as visualized. Reproductive: Right ovary 11 mm peripherally enhancing cyst may reflect a partially collapsed follicle. Bones/joints: Unremarkable. No acute fracture. Soft tissues: Unremarkable. CT/CT abdomen pelvis w con* [id number] IMPRESSION: 1. Small amount of nonspecific fluid in the pelvis. 2. Right ovary 11 mm peripherally enhancing cyst may reflect a partially collapsed follicle. 3. Cholecystectomy. 4. Constipation. Radiation Dose CTDIVOL = (mGy): DLP = 1656.1 (mGy-cm) Dictated By: Maciel Stark MD Signed By: Maciel Stark MD Signed Date/Time: 10/09/202354 DD/ 52 Discharge Plan Discharge Patient Disposition: Home Clinical Impression: Cyst of right ovary Condition: Stable Prescriptions: New acetaminophen-codeine 300-30 mg tablet 1 tab PO Q6H PRN (Reason: pain) Qty: 7 RF: 0 No Action promethazine 12.5 mg tablet 12.5 mg PO Q6H PRNRF: 0 lorazepam 0.5 mg tablet 0.5 mg PO DAILY PRN (Reason: anxiety) 30 Days Qty: 15 RF: 3 trazodone 50 mg tablet 50 mg PO BEDTIME@2200 PRNRF: 0 Discharge Orders: Discharge ED (Routine); Ordered 10/10/20 Ordered By: Randi Luna Referrals: Daniel Acuna MD [Primary Care Provider] - Patient Instructions: Ovarian Cyst (ED), Opioid Safety Activity Restrictions/Additional Instructions: [facility] [employer] is committed to fighting the nationwide opiate epidemic. We are providing ALL patients with information regarding opiate safety. If you received opiate pain medication during your stay or if you received a prescription for opiate pain medication-please review this handout. If not, you may disregard. Thank you. You may return to the emergency department for worsening or uncontrollable pelvic pain, vaginal discharge/odor, fevers greater than 100.4, or any other concerns you may have. Coding Level of Care Code ED Program Checker for Alexg Fwd Exam Detailed
[2020-10-09 22:42] LABS: HCG, Serum Qual Negative (Negative)
[2020-10-09 22:42] LABS: Add Urine Microscopic? YES; Bilirubin Urine Neg (Negative); Blood Urine Neg (Negative); Glucose Urine UA Norm (Normal); Ketones Urine Negative (Negative); Leukocyte Esterase Urine Trace (Negative); Nitrate Urine Negative (Negative); Protein Urine Neg (Negative); Specific Gravity, Urine 1.015 (1.005-1.030); Urine Appearance Clear (CLEAR); Urine Color Yellow (Yellow); Urobilinogen Urine Norm (Negative); pH Urine 6 (5-7)
[2020-10-09 22:43] LABS: Alanine Aminotransferase 20 U/L (0-33); Alkaline Phosphatase 88 IU/L (35-105); Anion Gap 11.8 (5-19); Aspartate Amino Transferase 20 U/L (0-32); Blood Urea Nitrogen 9 mg/dL (6-20); Calcium 8.7 mg/dL (8.5-10.5); Carbon Dioxide 27 mmol/L (22-29); Chloride 103 mmol/L (98-107); Globulin 2.8 g/dL (1.3-4.6); Glomerular Filtration Rate 127.5 mL/min (90-130); Glucose 82 mg/dL (65-115); Osmolality Calculated 284 mOsm/kg (285-295); Potassium 3.8 mmol/L (3.5-5.1); Sodium 138 mmol/L (136-145); Total Bilirubin 0.2 mg/dL (0.15-1.2); Total Protein 6.8 g/dL (6.6-8.7)
[2020-10-09 22:48] LABS: Add Urine Culture? No; Bacteria Urine 1+ /hpf; Mucus Urine 1+ /hpf
--- NOTE | 2020-10-09 22:55 | PC.NURSE ---
in room with ultrasound
[2020-10-09 22:56] VITALS: BP 145/93; PULSE 81; RESP 19; O2SAT 98
--- NOTE | 2020-10-09 23:17 | CTR_ITS ---
PROCEDURE INFORMATION: Exam: CT Abdomen And Pelvis With Contrast Exam date and time: 10/09/2020 11:17 PM Age: 20 years old Clinical indication: Abdominal pain; Localized; Right lower quadrant (rlq); Prior surgery; Surgery date: 6+ months; Surgery type: Gb, c-sect; Patient HX: C/O pelvic/rlq pain; Additional info: R lower abdominal/pelvic pain TECHNIQUE: Imaging protocol: Computed tomography of the abdomen and pelvis with contrast. Radiation optimization: All CT scans at this facility use at least one of these dose optimization techniques: automated exposure control; mA and/or kV adjustment per patient size (includes targeted exams where dose is matched to clinical indication); or iterative reconstruction. Contrast material: OMNI 300; Contrast volume: 95 ml; Contrast route: INTRAVENOUS (IV); COMPARISON: MR pelvis wo/w con [id number] 10/22/2019 1:46 PM RADIATION DOSE METRICS: Total DLP (mGy-cm): 1656.1 FINDINGS: Liver: Normal. No mass. Gallbladder and bile ducts: Cholecystectomy. Pancreas: Normal. No ductal dilation. Spleen: Normal. No splenomegaly. Adrenal glands: Normal. No mass. Kidneys and ureters: Normal. No hydronephrosis. Stomach and bowel: Constipation. Appendix: No evidence of appendicitis. Intraperitoneal space: Small amount of nonspecific fluid in the pelvis. Vasculature: Unremarkable. No abdominal aortic aneurysm. Lymph nodes: Unremarkable. No enlarged lymph nodes. Urinary bladder: Unremarkable as visualized. Reproductive: Right ovary 11 mm peripherally enhancing cyst may reflect a partially collapsed follicle. Bones/joints: Unremarkable. No acute fracture. Soft tissues: Unremarkable. CT/CT abdomen pelvis w con* [id number] IMPRESSION: 1. Small amount of nonspecific fluid in the pelvis. 2. Right ovary 11 mm peripherally enhancing cyst may reflect a partially collapsed follicle. 3. Cholecystectomy. 4. Constipation. Radiation Dose CTDIVOL = (mGy): DLP = 1656.1 (mGy-cm)
[2020-10-09] MEDS: iohexol 300 mg/mL 100 mL Btl IV (23:37)
[2020-10-10] MEDS: ondansetron 2 mg/ML SDV 2 mL 4 MG IVP (00:13)
[2020-10-10] MEDS: morphine 4 mg/mL SDV 1 mL IVP (00:13)
[2020-10-10 00:15] VITALS: BP 131/83; PULSE 71; RESP 19; O2SAT 100
[2020-10-10 00:35] VITALS: BP 123/85; PULSE 80; O2SAT 100
== END 2020-10-10 00:35 | disposition home or self-care (01) ==
PROVIDERS: Emergency Provider Physician Assistant; PCP Family Medicine
DX: N83.201 Unspecified ovarian cyst, right side (principal); F17.210 Nicotine dependence, cigarettes, uncomplicated
CPT/HCPCS: 74177; 76830; 80053; 81001; 84703; 85025; 96374; 96375; 99283; J2270; J2405; Q9967

== ENCOUNTER → 2020-11-18 09:28 | Outpatient (BNVA) | payer OTHER, MEDICAID, SELFPAY | PROVIDERS: PCP Family Medicine; Visit Provider Psychiatry & Neurology Psychiatry | DX: F41.1 Generalized anxiety disorder (principal); F41.0 Panic disorder [episodic paroxysmal anxiety] | CPT/HCPCS: 99214 ==

== ENCOUNTER 2020-11-22 16:47 | Emergency (ER) | payer MEDICAID, SELFPAY ==
[2020-11-22 17:51] VITALS: BP 144/87; PULSE 102; RESP 19; TEMP 37.1; O2SAT 99
--- NOTE | 2020-11-22 18:01 | ED_ITS ---
HPI - General Adult General: Chief complaint: General Medical Stated complaint: INSOMNIA/ANXIETY Time Seen by Provider: 11/22/20 18:01 History of Present Illness: HPI narrative: Patient is a 20-year-old female comes to the ED with anxiety and insomnia. Patient says she has not been able to sleep well for the past 4-5 nights. She says she had to give custody of her kids to her parents. This has caused her some anxiety and stress and she has been sad and crying. She denies any SI. Patient does have an appointment with behavioral health tomorrow at 7:30 in the morning. Her main concern is she would like to get some sleep tonight and will would like a medicine to help with it. Associated symptoms: Deny chest pain, dyspnea, headache(s), nausea, rash, palpitations or vomiting Review of Systems Const: Reports: change in sleep pattern (can't sleep at night do to stress and anxiety); Denies: fever(s), chills or fatigue Eyes: Denies: change in vision or eye discomfort ENMT: Denies: throat pain, odynophagia, nasal discharge or nasal congestion Card: Denies: chest pain, palpitations, edema, swelling of feet/ankles, dyspnea on exertion or orthopnea Resp: Denies: dyspnea, productive cough or non-productive cough GI: Denies: abdominal pain, nausea, vomiting, diarrhea, constipation or hematochezia : Denies: flank pain, dysuria or hematuria Musc: Denies: neck pain, back pain or extremity swelling Skin/Breast: Denies: rash or new lesions Neuro: Denies: headache(s), numbness in extremities or weakness in extremities Psych: Reports: anxiety and sleeping less PFSH ED PFSH: Medical History No pertinent past medical history neghx: htn,dm,thyroid,dvt/pe Surgical History S/P section (~12/23/18) per Dr. Acuna at [facility] [place] S/P cholecystectomy S/P wisdom tooth extraction Family History Mother Thyroid condition Hypertension Grandmother Breast cancer paternal Father Diabetes Heart disease Sister Thyroid condition Social History Smoking and tobacco status: current every day smoker Alcohol intake: never Additional social history: Tobacco use: Current everyday smoker; 0.25pk daily Alcohol use: Daily Drug use: 1/4 gram smoked at hs; has med marijuana card Female Reproductive History: Date of last menstrual period: 09/27/20 Para: 2 Spontaneous abortions: Yes (1) Physical Exam Const: COMMON NORMALS: no acute distress, patient oriented x3, healthy appearing and alert GENERAL APPEARANCE: cooperative and comfortable HENMT: COMMON NORMALS: normocephalic HEAD & SCALP: normocephalic MOUTH: Normal oral and palatal mucosa present THROAT: posterior oropharynx normal and uvula midline Eye: COMMON NORMALS: Equal, round and reactive pupils present PUPIL: Yes Equal, round and reactive pupils present Neck/C-Spine: COMMON NORMALS: supple GENERAL: Yes normal visual inspection Resp: COMMON NORMALS: normal respiratory effort, No retractions, No use of accessory muscles and clear to auscultation bilaterally AUSCULTATION: clear to auscultation bilaterally Cardio: COMMON NORMALS: regular rate, regular rhythm, S1 normal heart sound present, S2 normal heart sound present, No gallops present (Cardio), No clicks present (Cardio), No murmurs present (Cardio) and Peripheral pulses 2+ throughout RATE: regular rate RHYTHM: regular rhythm HEART SOUNDS: S1 normal heart sound present and S2 normal heart sound present PERIPHERAL PULSES: Peripheral pulses 2+ throughout GI: COMMON NORMALS: Normal to inspection, nondistended, normoactive bowel sounds present, Soft to palpation, non-tender and no masses PALPATION: Yes Soft to palpation : COMMON NORMALS: Yes no CVA tenderness BLADDER/KIDNEY EXAM: Yes no CVA tenderness Back/Pelvis: COMMON NORMALS: no CVA tenderness Extremity: COMMON NORMALS: normal to inspection Neuro: COMMON NORMALS: patient oriented x3 and moves all extremities SENSORIUM/ORIENTATION: Yes alert Psych: COMMON NORMALS: mental status grossly normal, Normal thought process present, cooperative, normal affect, speech normal, activity/motor behavior normal, denies hallucinations, denies homicidal ideation and denies suicidal ideation SPEECH: Yes normal speech MOOD & AFFECT: Yes anxious and Yes tearful (pt gets sad when talking about her kids.) THOUGHT PROCESS: Normal thought process present Skin: GENERAL SKIN EXAM: dry skin Course Vital Signs: Vital signs: Vital Signs Temperature 98.8 F 11/22/20 18:09 Pulse Rate 102 H 11/22/20 18:09 Respiratory Rate 18 11/22/20 18:09 Blood Pressure 144/87 11/22/20 18:09 Pulse Oximetry 99 11/22/20 18:09 MDM - General Adult MDM Narrative: Medical decision making narrative: Patient is a 20-year-old female comes to the ED with anxiety and trouble sleeping. Patient denies any HI, SI or hallucinations. Patient has an appoint with [facility] tomorrow morning. She is currently out of her lorazepam for anxiety. Patient was discharged home with a prescription for Vistaril and told to follow-up with behavioral health at her scheduled appointment tomorrow. Return to ED precautions given. Patient understood and agree with plan. Discharge Plan Discharge Patient Disposition: Home Clinical Impression: Anxiety Condition: Stable Prescriptions: New Vistaril 50 mg capsule 50 mg PO Q8H PRN (Reason: anxiety) Qty: 10 RF: 0 No Action promethazine 12.5 mg tablet 12.5 mg PO Q6H PRNRF: 0 lorazepam 0.5 mg tablet 0.5 mg PO DAILY PRN (Reason: anxiety) 30 Days Qty: 15 RF: 3 risperidone 0.25 mg tablet 0.25 mg PO .qhs 30 Days Qty: 30 RF: 3 acetaminophen-codeine 300-30 mg tablet 1 tab PO Q6H PRN (Reason: pain) Qty: 7 RF: 0 Discharge Orders: Discharge ED (Routine); Ordered 11/22/20 Ordered By: Daniel Bradley Referrals: Daniel Acuna MD [Primary Care Provider] - Discharge Diet: Regular Discharge Activity: Resume usual activity Patient Instructions: Anxiety (ED) Activity Restrictions/Additional Instructions: Follow-up with medical provider as directed at your scheduled appointment with behavioral [facility] tomorrow morning. Take medications as prescribed. Return to the ER or your medical provider if condition worsens. Please read and understand discharge instructions. Thank you for choosing [facility] for your healthcare needs today. Please realize this is an emergency room and that we are providing you with a medical screening exam and this may not be complete and all inclusive of all the testing and or work up that you may need to determine your ailment or severity of your illness. It is very important that you follow up as instructed or that you return to the Emergency Department should you have concerns or if your condition changes or worsens in any way. Coding Level of Care Code ED Decorative Engraver for Barb Chappell Exam Comprehensive
[2020-11-22 18:09] VITALS: BP 144/87; PULSE 102; RESP 18; TEMP 37.1; O2SAT 99
== END 2020-11-22 18:44 | disposition home or self-care (01) ==
PROVIDERS: Emergency Provider Physician Assistant; PCP Family Medicine
DX: F41.9 Anxiety disorder, unspecified (principal); F17.210 Nicotine dependence, cigarettes, uncomplicated
CPT/HCPCS: 99281

== ENCOUNTER 2020-12-29 11:12 | Emergency (ER) | payer MEDICAID, SELFPAY ==
[2020-12-29 11:47] VITALS: BP 134/80; PULSE 96; RESP 16; TEMP 37.1; O2SAT 100; BMI 37.8
--- NOTE | 2020-12-29 12:29 | W.ED.FEMALGU ---
HPI - Female Genitourinary General: Chief complaint: Urogenital-Female Stated complaint: Cramping, vaginal discharge, bleeding during inter Time Seen by Provider: 12/29/20 11:45 History of Present Illness: HPI Narrative: 20-year-old female presents emergency room complaining of vaginal bleeding. She is worried that she may have an STD. States she estimates herself to be approximately 5 to 6 weeks as she has noted vaginal bleeding and discharge with intercourse. She had try to get anesthesia MD elicited complaint: vaginal bleeding and vaginal discharge Pertinent past history: other () Onset (ago): day(s) Location of symptoms: vaginal Vaginal discharge: white Vaginal bleeding: scant Exacerbating factors: intercourse Relieving factors: none Associated symptoms: Reports vaginal discharge; Deny abdominal pain, short of breath, fevers/chills, headache(s), nausea, rash, seizures or syncope Treatment prior to arrival: none Sexual activity: Yes and Known STD Exposure Patient : Yes Date of Last Menstrual Period: 11/24/20 Review of Systems Const: Denies: fever(s), chills, body aches, change in appetite, fatigue or malaise ENMT: Denies: throat pain, ear or mastoid pain, nasal discharge or nasal congestion Card: Denies: syncope Resp: Denies: dyspnea, productive cough or non-productive cough GI: Denies: abdominal pain or nausea : Reports: vaginal discharge Skin/Breast: Denies: rash or pruritus Neuro: Denies: headache(s) PFSH ED PFSH: Medical History No pertinent past medical history neghx: htn,dm,thyroid,dvt/pe Psychiatric care Surgical History S/P section (~12/23/18) per Dr. Acuna at [facility] – [place] S/P cholecystectomy S/P wisdom tooth extraction Family History Mother Thyroid condition Hypertension Grandmother Breast cancer paternal Father Diabetes Heart disease Sister Thyroid condition Social History Smoking and tobacco status: current every day smoker Alcohol intake: never Additional social history: Tobacco use: Current everyday smoker; 0.25pk daily Alcohol use: Daily Drug use: 1/4 gram smoked at hs; has med marijuana card Female Reproductive History: Date of last menstrual period: 11/24/20 Para: 2 Spontaneous abortions: Yes (1) Physical Exam Const: COMMON NORMALS: no acute distress GENERAL APPEARANCE: cooperative and comfortable ORIENTATION/CONSCIOUSNESS: Yes awake, Yes oriented to person, Yes oriented to place and Yes oriented to time HENMT: COMMON NORMALS: normocephalic, atraumatic and hearing grossly normal bilaterally HEAD & SCALP: normocephalic and atraumatic Neck/C-Spine: COMMON NORMALS: no JVD Resp: COMMON NORMALS: normal respiratory effort, No retractions, No use of accessory muscles and clear to auscultation bilaterally AUSCULTATION: clear to auscultation bilaterally Cardio: COMMON NORMALS: no JVD, regular rate, regular rhythm and No murmurs present (Cardio) RATE: regular rate RHYTHM: regular rhythm GI: COMMON NORMALS: Soft to palpation and No hepatosplenomegaly present AUSCULTATION: Yes normoactive bowel sounds PALPATION: Yes Soft to palpation, No Tenderness to palpation present (GI), No Guarding due to palpation present (GI) and Yes No hepatosplenomegaly present : COMMON NORMALS: Yes no CVA tenderness BLADDER/KIDNEY EXAM: Yes no CVA tenderness SPECULUM EXAM - VAGINA: No erythematous, No laceration and No lesion SPECULUM EXAM - CERVIX: Yes Cervical os closed, No Abnormal cervical discharge present and No Cervical tenderness present BIMANUAL EXAM - VAGINA & UTERUS: No Cervical tenderness present OTHER: Cervix hyperemic consistent with did have some mild bleeding with cotton swabs applied for cultures. Back/Pelvis: COMMON NORMALS: no CVA tenderness Extremity: COMMON NORMALS: normal to inspection, capillary refill normal, no clubbing, cyanosis or edema, no calf tenderness and no pedal edema Neuro: SENSORIUM/ORIENTATION: Yes oriented to person, Yes oriented to place and Yes oriented to time Skin: COMMON NORMALS: no rashes or lesions noted GENERAL SKIN EXAM: no rashes or lesions noted Course Vital Signs: Vital signs: Vital Signs Temperature 98.8 F 12/29/20 11:47 Pulse Rate 96 12/29/20 11:47 Respiratory Rate 16 09/15/21 11:47 Blood Pressure 134/80 09/15/21 11:47 Pulse Oximetry 100 12/29/20 11:47 MDM - Female MDM Narrative: Medical decision making narrative: Discussed with patient most likely just cervical irritation during intercourse. Observe for now. We will contact her with the results of the cultures. Lab Data: Labs: Lab Results 12/29/20 Range/Units 12:54 Urine Color Straw (Yellow) Urine Appearance Clear (CLEAR) Urine pH 7 (5-7) Ur Specific Gravit y 1.005 (1.005-1.030) Urine Protein Neg (Negative) Urine Glucose (UA) Norm (Normal) Urine Ketones Negative (Negative) Urine Blood Neg (Negative) Urine Nitrate Negative (Negative) Urine Bilirubin Neg (Negative) Urine Urobilinogen Norm (Negative) mg/dL Ur Leukocyte Jackie ase Trace H (Negative) Urine RBC Not Reportable Urine WBC 5-10 H (0-5) /hpf Ur Squamous Epith Cells 5-10 H (0-5) /hpf Ur Transition Epit h Cell 0-4 /hpf Amorphous Sediment Not Reportable Urine Bacteria Trace (NONE) /hpf Discharge Plan Discharge Patient Disposition: Home Clinical Impression: , Vaginal bleeding Condition: Stable Prescriptions: No Action promethazine 12.5 mg tablet 12.5 mg PO Q6H PRNRF: 0 lorazepam 0.5 mg tablet 0.5 mg PO DAILY PRN (Reason: anxiety) 30 Days Qty: 15 RF: 3 risperidone 0.25 mg tablet 0.25 mg PO .qhs 30 Days Qty: 30 RF: 3 acetaminophen-codeine 300-30 mg tablet 1 tab PO Q6H PRN (Reason: pain) Qty: 7 RF: 0 Vistaril 50 mg capsule 50 mg PO Q8H PRN (Reason: anxiety) Qty: 10 RF: 0 Discharge Orders: Discharge ED (Routine); Ordered 12/29/20 Ordered By: Celestino Herrera Referrals: Daniel Acuna MD [Primary Care Provider] - Discharge Diet: Usual diet Discharge Activity: Resume usual activity Patient Instructions: Opioid Safety Coding Level of Care Code ED [employer] for Chg 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
--- NOTE | 2020-12-29 13:17 | PC.NURSE ---
this nurse served as big data software engineer to ER physician whilst pelvic exam taking place
[2020-12-29 13:29] LABS: Add Urine Microscopic? YES; Bilirubin Urine Neg (Negative); Blood Urine Neg (Negative); Glucose Urine UA Norm (Normal); Ketones Urine Negative (Negative); Leukocyte Esterase Urine Trace (Negative); Nitrate Urine Negative (Negative); Protein Urine Neg (Negative); Specific Gravity, Urine 1.005 (1.005-1.030); Urine Appearance Clear (CLEAR); Urine Color Straw (Yellow); Urobilinogen Urine Norm (Negative); pH Urine 7 (5-7)
[2020-12-29 13:30] LABS: Add Urine Culture? No; Bacteria Urine TRACE /hpf; Transitional Epi Cells Urine 0-4 /hpf
== END 2020-12-29 13:42 | disposition home or self-care (01) ==
PROVIDERS: Emergency Provider Family Medicine; PCP Family Medicine
DX: O20.9 Hemorrhage in early pregnancy, unspecified (principal); O99.331 Smoking (tobacco) complicating pregnancy, first trimester; F17.210 Nicotine dependence, cigarettes, uncomplicated; Z3A.01 Less than 8 weeks gestation of pregnancy; F41.1 Generalized anxiety disorder; F41.0 Panic disorder [episodic paroxysmal anxiety]; F32.9 Major depressive disorder, single episode, unspecified; F60.3 Borderline personality disorder
CPT/HCPCS: 81001; 87210; 87491; 87591; 87661; 90834; 90839; 99283; E0352

== ENCOUNTER → 2020-12-30 10:14 | Outpatient (BNVA) | payer OTHER, SELFPAY | PROVIDERS: PCP Family Medicine; Visit Provider Psychiatry & Neurology Psychiatry | DX: F41.1 Generalized anxiety disorder (principal); F41.0 Panic disorder [episodic paroxysmal anxiety]; F32.9 Major depressive disorder, single episode, unspecified; F15.10 Other stimulant abuse, uncomplicated | CPT/HCPCS: 99214 ==

== ENCOUNTER 2021-01-13 17:44 | Emergency (ER) | payer MEDICAID, SELFPAY ==
[2021-01-13 18:41] VITALS: BP 107/74; PULSE 83; RESP 18; TEMP 36.8; O2SAT 100; BMI 37.9
[2021-01-13 19:47] VITALS: BP 126/74; PULSE 87; RESP 15; O2SAT 100
[2021-01-13 19:55] LABS: Charge for UA Resulting for Rev
[2021-01-13 20:02] LABS: Urine Appearance Cloudy (CLEAR); Urine Color Amber (Yellow); pH Urine 6.5 (5-7)
[2021-01-13 20:03] LABS: Blood Urine Neg (Negative); Glucose Urine UA Norm (Normal); Ketones Urine 1+ (Negative); Nitrate Urine Negative (Negative); Protein Urine Trace (Negative)
[2021-01-13 20:04] LABS: Add Urine Microscopic? YES; Bilirubin Urine 1+ (Negative); HCG Qualitative Urine. Positive (Negative); Leukocyte Esterase Urine 2+ (Negative); Urobilinogen Urine 1 mg/dL (Negative)
[2021-01-13 20:10] LABS: WBC Urine 15-25 /hpf (0-5)
[2021-01-13 20:11] LABS: Add Urine Culture? No; Bacteria Urine 2+ /hpf; Mucus Urine 2+ /hpf; Squamous Epithelial Cell Urine 25-40 /hpf (0-5)
--- NOTE | 2021-01-13 20:12 | W.ED.GENADLT ---
HPI - General Adult General: Chief complaint: Nausea/Vomiting/Diarrhea Stated complaint: N/V, CONGESTION Time Seen by Provider: 01/13/21 19:41 History of Present Illness: HPI narrative: 20-year-old G1 at 10 weeks . She is here with rhinorrhea cough sneezing watery eyes postnasal drip. Says been going on for 1 day. Has had some gagging and nausea due to postnasal drip. Has not had any food intolerance abdominal pain chest pain shortness of breath vomiting diarrhea altered mental status or syncope. Review of Systems General: Reports: 10 or more systems reviewed and unremarkable except in HPI and below PFSH ED PFSH: Medical History Depression Methamphetamine abuse No pertinent past medical history neghx: htn,dm,thyroid,dvt/pe Psychiatric care Surgical History S/P section (~12/23/18) per Dr. Acuna at [facility] [place] S/P cholecystectomy S/P wisdom tooth extraction Family History Mother Thyroid condition Hypertension Grandmother Breast cancer paternal Father Diabetes Heart disease Sister Thyroid condition Social History Smoking and tobacco status: current every day smoker Alcohol intake: never Additional social history: Tobacco use: Current everyday smoker; 0.25pk daily Alcohol use: Daily Drug use: 1/4 gram smoked at hs; has med marijuana card Female Reproductive History: Date of last menstrual period: 11/15/20 Para: 2 Spontaneous abortions: Yes (1) Physical Exam Const: COMMON NORMALS: no acute distress, average body habitus, patient oriented x3, no limitations, healthy appearing, alert and well nourished HENMT: COMMON NORMALS: normocephalic, atraumatic, hearing grossly normal bilaterally, external ears normal, EAC's normal, Normal external nose present, Normal nasal mucous membranes and turbinates present, moist oral mucous membranes, oropharynx normal, dentition normal and gingiva normal HEAD & SCALP: normocephalic and atraumatic FACE & SINUS: normal facial exam, sinuses nontender and face symmetric; no Flattened naso-labial fold present NOSE: Normal external nose present, Normal nasal mucous membranes and turbinates present, No nasal discharge present (Moderate bilateral clear rhinorrhea with bogginess of the nasal turbinates) and Nasal discharge present EXTERNAL EAR: Yes external ears normal EXTERNAL AUDITORY CANAL: EAC's normal Neuro: COMMON NORMALS: patient oriented x3 SENSORIUM/ORIENTATION: Yes alert Course ED course: Patient appears to have allergic rhinitis. No signs or symptoms of bacterial sinusitis according to IDSA guidelines. Gave her some instructions on cold care [id number] treatments including nasal washes Nathalie pot nasal steroids Mucinex. Did encourage her not to use any decongestant medicine with her . No concern for Covid pneumonia or any related issue and she is appropriate for discharge Vital Signs: Vital signs: Vital Signs Temperature 98.2 F 01/13/21 18:41 Pulse Rate 87 01/13/21 19:47 Respiratory Rate 15 01/13/21 19:47 Blood Pressure 126/74 01/13/21 19:47 Pulse Oximetry 100 01/13/21 19:47 [facility] - General Adult Lab Data: Labs: Lab Results 01/13/21 01/13/21 19:45 19:45 HCG, Qual Positive H (Negative) Urine Color Reshma (Yellow) Urine Appearance Cloudy (CLEAR) Urine pH 6.5 (5-7) Ur Specific Gravit y 1.020 (1.005-1.030) Urine Protein Trace (Negative) Urine Glucose (UA) Norm (Normal) Urine Ketones 1+ H (Negative) Urine Blood Neg (Negative) Urine Nitrate Negative (Negative) Urine Bilirubin 1+ H (Negative) Urine Urobilinogen 1 mg/dL H mg/dL (Negative) Ur Leukocyte Jackie ase 2+ H (Negative) Urine RBC Not Reportable Urine WBC 15-25 /hpf H /hpf (0-5) Ur Squamous Epith Cells 25-40 /hpf H /hpf (0-5) Amorphous Sediment Not Reportable Urine Bacteria 2+ /hpf H /hpf (NONE) Urine Mucus 2+ /hpf /hpf Discharge Plan Discharge Patient Disposition: Home Clinical Impression: Acute rhinitis Condition: Stable Prescriptions: No Action promethazine 12.5 mg tablet 12.5 mg PO Q6H PRNRF: 0 Vistaril 50 mg capsule 50 mg PO Q8H PRN (Reason: anxiety) Qty: 10 RF: 0 Discharge Orders: Discharge ED (Routine); Ordered 01/13/21 Ordered By: Bharat Rashid Referrals: Daniel Acuna MD [Primary Care Provider] - Patient Instructions: Allergic Rhinitis (ED) Coding Level of Care Code ED [employer] Chair for Barb Chappell
[2021-01-13 20:17] VITALS: PULSE 70; RESP 16; O2SAT 100
== END 2021-01-13 20:18 | disposition home or self-care (01) ==
PROVIDERS: Emergency Provider Family Medicine; PCP Family Medicine
DX: J00 Acute nasopharyngitis [common cold] (principal); F17.210 Nicotine dependence, cigarettes, uncomplicated; Z20.822 Contact with and (suspected) exposure to COVID-19
CPT/HCPCS: 81001; 81003; 81025; 87635; 99282

== ENCOUNTER → 2021-01-14 08:39 | Outpatient (BNVA) | payer OTHER, MEDICAID, SELFPAY | PROVIDERS: PCP Family Medicine; Visit Provider Social Worker | DX: F41.1 Generalized anxiety disorder (principal); F41.0 Panic disorder [episodic paroxysmal anxiety]; F32.9 Major depressive disorder, single episode, unspecified; F60.3 Borderline personality disorder | CPT/HCPCS: 90834 ==

== ENCOUNTER 2021-01-20 12:28 | Outpatient (CLI) | payer MEDICAID, SELFPAY ==
--- NOTE | 2021-01-20 12:34 | US_ITS ---
WS: [id number] ULTRASOUND EARLY TECHNIQUE: Transabdominal sonography of the pelvis was performed. Followed by transvaginal sonography to better evaluate the uterus and ovaries. CLINICAL INFORMATION: SUPERVISION OF NORMAL LMP: 11/18/2020 Beta hCG: Unknown. COMPARISON: None. FINDINGS: UTERUS AND GESTATIONAL SAC Intrauterine gestations: Single live intrauterine gestation. Cervix measures 4.1 CM. Estimated gestational age: 9w3d Yolk sac: 0.4 cm. Wade rump length (CRL): 2.7 cm. heart motion: 164 BPM. Subchorionic hemorrhage: None. OVARIES Right ovary: Normal. Left ovary: Normal. FREE FLUID None. US/US OB <= 14 weeks fetus [id number] IMPRESSION: 1. Single live intrauterine with pole.. 2. Estimated gestational age; 9w3d with estimated delivery August 22, 2021 3. Normal cervix. 4. Both ovaries are normal. 5. No free fluid in the cul-de-sac.
== END 2021-01-20 12:29 | disposition home or self-care (01) ==
LOC: RAD 12:29
PROVIDERS: PCP Family Medicine; Visit Provider Family Medicine
DX: Z34.81 Encounter for supervision of other normal pregnancy, first trimester; Z3A.09 9 weeks gestation of pregnancy
CPT/HCPCS: 76801

== ENCOUNTER → 2021-02-15 09:43 | Outpatient (BNVA) | payer OTHER, MEDICAID, SELFPAY | PROVIDERS: PCP Family Medicine; Visit Provider Social Worker | DX: F41.1 Generalized anxiety disorder (principal); F41.0 Panic disorder [episodic paroxysmal anxiety]; F32.9 Major depressive disorder, single episode, unspecified; F60.3 Borderline personality disorder | CPT/HCPCS: 90834 ==

== ENCOUNTER → 2021-02-24 09:50 | Outpatient (BNVA) | payer OTHER, MEDICAID, SELFPAY | PROVIDERS: PCP Family Medicine; Visit Provider Social Worker | DX: F41.1 Generalized anxiety disorder (principal); F41.0 Panic disorder [episodic paroxysmal anxiety]; F32.9 Major depressive disorder, single episode, unspecified; F60.3 Borderline personality disorder | CPT/HCPCS: 90834 ==

== ENCOUNTER → 2021-03-14 13:49 | Outpatient (BNVA) | payer OTHER, SELFPAY | PROVIDERS: PCP Family Medicine; Visit Provider Social Worker | DX: F41.1 Generalized anxiety disorder (principal); F41.0 Panic disorder [episodic paroxysmal anxiety]; F32.9 Major depressive disorder, single episode, unspecified; F60.3 Borderline personality disorder | CPT/HCPCS: 90834 ==

== ENCOUNTER 2021-04-05 08:56 | Outpatient (CLI) | payer OTHER, MEDICAID, SELFPAY ==
--- NOTE | 2021-04-05 09:02 | US_ITS ---
WS: [id number] ULTRASOUND OB COMPLETE TECHNIQUE: Complete ultrasound. CLINICAL INFORMATION: SUPERVISION HIGH RISK PREGANCY/ANATOMY COMPARISON: January 20, 2021 FINDINGS: Cervix measures 4.1 cm Single interuterine gestation is identified with vertex presentation. Placenta is anterior. Placenta grade 0. Normal amniotic fluid volume. cardiac activity: 133 BPM. AGA: 19w6d ARNAV by ultrasound: 08/24/2021 Estimated weight: 323 g., %. BDP: 4.4 cm = 19w2d HC: 17.5 cm = 20w0d AC: 14.7 cm = 20w0d FEMUR LENGTH: 3.2 cm = 20w0d Anatomic survey: Anatomic survey is normal. Normal stomach. Kidneys and bladder are normal. Normal 3 vessel cord. Norm al 3 vessel cord insertion. Normal 4 chamber heart. Normal spine. Intracranial contents are normal. N ormal posterior fossa and cisterna magna. US/US OB >= 14 weeks fetus [id number] IMPRESSION: 1. Single intrauterine with visualized cardiac activity. AGA 19w6d w ith ARNAV 08/24/2021. 2. Placenta is anterior. No evidence of abruption or previa. 3. anatomic survey is normal. 4. Normal amniotic fluid volume.
== END 2021-04-05 08:57 | disposition home or self-care (01) ==
LOC: RAD 08:58
PROVIDERS: PCP Family Medicine; Visit Provider Family Medicine
DX: O09.90 Supervision of high risk pregnancy, unspecified, unspecified trimester (principal)
CPT/HCPCS: 76805

== ENCOUNTER → 2021-04-11 07:47 | Outpatient (BNVA) | payer OTHER, MEDICAID, SELFPAY | PROVIDERS: PCP Family Medicine; Visit Provider Social Worker | DX: F41.1 Generalized anxiety disorder (principal); F41.0 Panic disorder [episodic paroxysmal anxiety]; F32.9 Major depressive disorder, single episode, unspecified; F60.3 Borderline personality disorder | CPT/HCPCS: 90834 ==

== ENCOUNTER 2021-05-02 13:35 | Outpatient (CLI) | payer OTHER, MEDICAID, SELFPAY ==
[2021-05-02 13:35] VITALS: BMI 37.5
[2021-05-02 13:58] VITALS: BP 120/74; PULSE 84
--- NOTE | 2021-05-02 14:21 | US_ITS ---
WS: [id number] BIOPHYSICAL PROFILE AMNIOTIC FLUID HISTORY: Had a fall onto abdomen COMPARISON: 04/05/2021 Cardiac activity: 131 bpm. Cervix: closed. Placenta: Anterior, no previa or abruption. Placenta grade: 2 Parameters are as follows: Breathin Movement: 2 Tone: 2 Fluid volume: 2 Amniotic fluid index: 13.5 cm. US/US OB BPP wo NST [id number] IMPRESSION: 1. Biophysical profile score: 8/8. 2. Normal amniotic fluid index.
[2021-05-02 14:41] VITALS: BP 116/70; PULSE 82
[2021-05-02 15:01] VITALS: BP 126/67; PULSE 67
[2021-05-02 15:21] VITALS: BP 112/74; PULSE 70
== END 2021-05-02 15:32 | disposition home or self-care (01) ==
LOC: OPOB 13:46 → OBGYN 13:50
PROVIDERS: PCP Family Medicine; Visit Provider Family Medicine
DX: O26.899 Other specified pregnancy related conditions, unspecified trimester (principal); Z3A.00 Weeks of gestation of pregnancy not specified; R10.9 Unspecified abdominal pain
CPT/HCPCS: 59025; 76819; 99211

== ENCOUNTER 2021-05-12 10:20 | Outpatient (CLI) | payer MEDICAID, SELFPAY ==
[2021-05-12 10:31] VITALS: BP 126/79; PULSE 95
[2021-05-12 10:46] VITALS: BP 117/76; PULSE 95; RESP 17; TEMP 36.8
[2021-05-12 11:04] LABS: Nitrazine Paper, PH Negative
== END 2021-05-12 10:58 | disposition home or self-care (01) ==
LOC: OPOB 10:23 → OBGYN 10:24
PROVIDERS: PCP Family Medicine; Visit Provider Family Medicine
DX: O26.899 Other specified pregnancy related conditions, unspecified trimester (principal); Z3A.00 Weeks of gestation of pregnancy not specified; N89.8 Other specified noninflammatory disorders of vagina
CPT/HCPCS: 83986; 99211

== ENCOUNTER 2021-05-26 08:02 | Outpatient (CLI) | payer MEDICAID, SELFPAY ==
--- NOTE | 2021-05-26 08:16 | US_ITS ---
WS: [id number] Pelvic ultrasound, limited. HISTORY: Right-sided pain evaluate for possible ovarian torsion. Patient is in the second trimester p regnancy. No free fluid identified. Very limited and difficult examination to evaluate for ovarian torsion. Nei ther ovary is identified. No free fluid in Morison's pouch. US/US pelvic limited [id number] IMPRESSION: Neither ovary identified due to late gestational age. Cannot exclude ovarian to rsion.
== END 2021-05-26 08:03 | disposition home or self-care (01) ==
PROVIDERS: PCP Family Medicine; Visit Provider Family Medicine
DX: R10.9 Unspecified abdominal pain (principal); O09.90 Supervision of high risk pregnancy, unspecified, unspecified trimester
CPT/HCPCS: 76857

== ENCOUNTER → 2021-06-03 11:35 | Day surgery (SDC) | payer MEDICAID, SELFPAY ==
[2021-06-03 11:40] VITALS: BP 149/80; PULSE 83; RESP 18; TEMP 36.6; O2SAT 100
[2021-06-03 14:05] VITALS: BP 119/65; PULSE 66; RESP 18; TEMP 36.3; O2SAT 95
== END ==
LOC: GILAB 11:38
PROVIDERS: PCP Family Medicine; Visit Provider Family Medicine
DX: O36.0990 Maternal care for other rhesus isoimmunization, unspecified trimester, not applicable or unspecified (principal); O09.90 Supervision of high risk pregnancy, unspecified, unspecified trimester; Z3A.00 Weeks of gestation of pregnancy not specified
CPT/HCPCS: 36430; 86850; 86900; 90384; 96372

== ENCOUNTER 2021-07-02 10:15 | Outpatient (CLI) | payer MEDICAID, SELFPAY ==
[2021-07-02] VITALS (7 sets, daily range): BP systolic 130–135; BP diastolic 79–88; PULSE 83–103; RESP 17; BMI 39.1
[2021-07-02 11:41] LABS: Bilirubin Urine Neg (Negative); Blood Urine Neg (Negative); Glucose Urine UA Norm (Normal); Ketones Urine Negative (Negative); Leukocyte Esterase Urine 2+ (Negative); Nitrate Urine Negative (Negative); Protein Urine Neg (Negative); Urine Appearance SL Hazy (CLEAR); Urine Color Yellow (Yellow); Urobilinogen Urine Norm (Negative); pH Urine 7 (5-7)
[2021-07-02 11:42] LABS: Add Urine Culture? No; Bacteria Urine 2+ /hpf; Squamous Epithelial Cell Urine 15-25 /hpf (0-5); WBC Urine 15-25 /hpf (0-5)
== END 2021-07-02 12:00 | disposition home or self-care (01) ==
LOC: OPOB 10:20 → OBGYN 10:21
PROVIDERS: PCP Family Medicine; Visit Provider Family Medicine
DX: O26.899 Other specified pregnancy related conditions, unspecified trimester (principal); Z3A.00 Weeks of gestation of pregnancy not specified; R10.9 Unspecified abdominal pain
CPT/HCPCS: 59025; 81001; 99211

== ENCOUNTER 2021-07-11 10:50 | Outpatient (CLI) | payer MEDICAID, SELFPAY ==
[2021-07-11] VITALS (10 sets, daily range): BP systolic 134–151; BP diastolic 76–85; PULSE 82–102; RESP 16; BMI 39.2
--- NOTE | 2021-07-11 11:36 | US_ITS ---
WS: [id number] BIOPHYSICAL PROFILE AMNIOTIC FLUID HISTORY: ONEAL, BPP, COMPARISON: 05/02/2021 Presentation: Vertex. Cardiac activity: 133 bpm. Cervix: Partially visualized. Partially obscured by the head. Placenta: Anterior, no previa or abruption. Placenta grade: 2 Parameters are as follows: Breathin Movement: 2 Tone: 2 Fluid volume: 2 Amniotic fluid index: 12.9 cm. Largest vertical pocket 4.0 cm. US/US OB BPP wo NST [id number] IMPRESSION: 1. Biophysical profile score: 8/8. 2. Normal amniotic fluid index. 3. Normal cardiac activity.
[2021-07-11 12:19] LABS: Basophils % 0.3 %; Eosinophils # 0.1 10^3/uL (0.0-0.8); Eosinophils % 0.4 %; Hematocrit 31.7 % (37.0-47.0); Hemoglobin 10.7 g/dL (11.5-15.3); Lymphocytes # 2.6 10^3/uL (0.8-4.8); Lymphocytes % 16.1 %; Mean Corpuscular HGB Conc 33.8 g/dL (30.0-36.0); Mean Corpuscular Hemoglobin 30.5 pg (28.0-34.0); Mean Corpuscular Volume 90.3 fl (81-99); Mean Platelet Volume 10.5 fL (7.4-10.4); Monocytes % 6.2 %; Neutrophils # 11.97 10^3/uL (1.8-7.7); Neutrophils % 75.2 %; Nucleated Red Blood Cells % 0 %; Platelet Count 159 10^3/cmm (130-400); Red Blood Count 3.51 10^6/uL (4.1-5.3); Red Cell Distribution Width 12.8 % (12.1-15.1); White Blood Count 15.9 10^3/uL (4.0-10.0)
[2021-07-11 12:52] LABS: Alanine Aminotransferase 38 U/L (0-33); Albumin Level 3.3 g/dL (3.5-5.2); Alkaline Phosphatase 189 IU/L (35-105); Anion Gap 15.4 (5-19); Aspartate Amino Transferase 26 U/L (0-32); Blood Urea Nitrogen 4 mg/dL (6-20); Calcium 8.7 mg/dL (8.5-10.5); Carbon Dioxide 23 mmol/L (22-29); Chloride 101 mmol/L (98-107); Globulin 2.8 g/dL (1.3-4.6); Glomerular Filtration Rate 201.5 mL/min (90-130); Glucose 108 mg/dL (65-115); Osmolality Calculated 279 mOsm/kg (285-295); Potassium 3.4 mmol/L (3.5-5.1); Sodium 136 mmol/L (136-145); Total Bilirubin 0.3 mg/dL (0.15-1.2); Total Protein 6.1 g/dL (6.6-8.7); Uric Acid 3.4 mg/dL (2.4-5.7)
== END 2021-07-11 13:17 | disposition home or self-care (01) ==
LOC: OPOB 10:53 → OBGYN 10:56
PROVIDERS: PCP Family Medicine; Visit Provider Family Medicine
DX: O16.9 Unspecified maternal hypertension, unspecified trimester (principal); Z3A.00 Weeks of gestation of pregnancy not specified
CPT/HCPCS: 76819; 80053; 84550; 85025

== ENCOUNTER 2021-07-14 10:15 | Outpatient (CLI) | payer MEDICAID, SELFPAY ==
[2021-07-14 10:15] VITALS: RESP 17; BMI 39.6
[2021-07-14 10:30] VITALS: BP 133/76; PULSE 104
[2021-07-14 10:46] VITALS: BP 110/59; PULSE 90
[2021-07-14 11:01] VITALS: BP 116/60; PULSE 80
[2021-07-14 11:09] VITALS: BP 116/60; PULSE 80
== END 2021-07-14 11:12 | disposition home or self-care (01) ==
LOC: OPOB 10:21 → OBGYN 10:22
PROVIDERS: PCP Family Medicine; Visit Provider Family Medicine
DX: O16.9 Unspecified maternal hypertension, unspecified trimester (principal); Z3A.00 Weeks of gestation of pregnancy not specified
CPT/HCPCS: 59025

== ENCOUNTER 2021-07-18 10:52 | Outpatient (CLI) | payer MEDICAID, SELFPAY ==
[2021-07-18] VITALS (8 sets, daily range): BP systolic 140–148; BP diastolic 77–97; PULSE 83–107; RESP 18; TEMP 36.7; BMI 39.9
--- NOTE | 2021-07-18 | US_ITS ---
WS: [id number] BIOPHYSICAL PROFILE AMNIOTIC FLUID HISTORY: WELL BEING, NST NOT REACTIVE COMPARISON: 07/11/2021 Cardiac activity: 136 bpm. Cervix: closed. Placenta: Anterior, no previa or abruption. Placenta grade: 2 Parameters are as follows: Breathin Movement: 2 Tone: 2 Fluid volume: 2 Amniotic fluid index: 10.9 cm which is between the fifth and 50th percentiles. Largest vertical pocke t of amniotic fluid is 4.8 cm. US/US OB limited [id number] IMPRESSION: 1. Biophysical profile score: 8/8. 2. Normal amniotic fluid index.
--- NOTE | 2021-07-18 11:58 | US_ITS ---
WS: [id number] BIOPHYSICAL PROFILE AMNIOTIC FLUID HISTORY: WELL BEING, NST NOT REACTIVE COMPARISON: 07/11/2021 Cardiac activity: 136 bpm. Cervix: closed. Placenta: Anterior, no previa or abruption. Placenta grade: 2 Parameters are as follows: Breathin Movement: 2 Tone: 2 Fluid volume: 2 Amniotic fluid index: 10.9 cm which is between the fifth and 50th percentiles. Largest vertical pocke t of amniotic fluid is 4.8 cm. US/US OB BPP wo NST [id number] IMPRESSION: 1. Biophysical profile score: 8/8. 2. Normal amniotic fluid index.
== END 2021-07-18 13:40 | disposition home or self-care (01) ==
LOC: OPOB 10:53 → OBGYN 10:54
PROVIDERS: PCP Family Medicine; Visit Provider Family Medicine
DX: O16.9 Unspecified maternal hypertension, unspecified trimester (principal); Z3A.00 Weeks of gestation of pregnancy not specified
CPT/HCPCS: 59025; 76815; 76819; 99211

== ENCOUNTER 2021-07-21 10:15 | Outpatient (CLI) | payer MEDICAID, SELFPAY ==
[2021-07-21 10:15] VITALS: RESP 17
[2021-07-21 10:20] VITALS: BMI 39.6
[2021-07-21 10:26] VITALS: BP 139/79; PULSE 98
[2021-07-21 10:41] VITALS: BP 128/73; PULSE 94
== END 2021-07-21 10:55 | disposition home or self-care (01) ==
LOC: OPOB 10:17 → OBGYN 10:18
PROVIDERS: PCP Family Medicine; Visit Provider Family Medicine
DX: O24.419 Gestational diabetes mellitus in pregnancy, unspecified control (principal); Z3A.00 Weeks of gestation of pregnancy not specified
CPT/HCPCS: 59025

== ENCOUNTER 2021-07-25 10:25 | Outpatient (CLI) | payer MEDICAID, SELFPAY ==
[2021-07-25 10:44] VITALS: BP 138/78; PULSE 95
[2021-07-25 10:47] VITALS: RESP 16
[2021-07-25 10:48] VITALS: RESP 16; BMI 40.9
== END 2021-07-25 11:46 | disposition home or self-care (01) ==
LOC: OPOB 10:26 → OBGYN 10:31
PROVIDERS: PCP Family Medicine; Visit Provider Family Medicine
DX: O26.899 Other specified pregnancy related conditions, unspecified trimester (principal); Z3A.00 Weeks of gestation of pregnancy not specified
CPT/HCPCS: 59025

== ENCOUNTER 2021-07-26 16:00 | Outpatient (CLI) | payer MEDICAID, SELFPAY ==
[2021-07-26] VITALS (9 sets, daily range): BP systolic 125–134; BP diastolic 69–92; PULSE 86–122; RESP 17; TEMP 36.4; BMI 40.2
[2021-07-26] MEDS: acetaminophen 325 mg Tablet 650 MG PO (16:50)
== END 2021-07-26 17:58 | disposition home or self-care (01) ==
LOC: OPOB 16:03 → OBGYN 16:04
PROVIDERS: PCP Family Medicine; Visit Provider Family Medicine
DX: O16.9 Unspecified maternal hypertension, unspecified trimester (principal); Z3A.00 Weeks of gestation of pregnancy not specified
CPT/HCPCS: 59025; 99211

== ENCOUNTER 2021-07-28 10:15 | Outpatient (CLI) | payer MEDICAID, SELFPAY ==
[2021-07-28 10:15] VITALS: BMI 40.9
[2021-07-28 10:27] VITALS: BP 136/63; PULSE 110
[2021-07-28 10:37] VITALS: RESP 18
[2021-07-28 10:47] VITALS: BP 124/78; PULSE 99
[2021-07-28 10:55] VITALS: BP 124/78; PULSE 99
== END 2021-07-28 10:55 | disposition home or self-care (01) ==
LOC: OPOB 10:20 → OBGYN 10:22
PROVIDERS: PCP Family Medicine; Visit Provider Family Medicine
DX: O16.9 Unspecified maternal hypertension, unspecified trimester (principal); Z3A.00 Weeks of gestation of pregnancy not specified
CPT/HCPCS: 59025; 99211

== ENCOUNTER 2021-08-01 04:50 | Inpatient (IN) | payer MEDICAID, SELFPAY ==
[2021-08-01] VITALS (27 sets, daily range): BP systolic 123–152; BP diastolic 58–100; PULSE 53–108; RESP 16–18; TEMP 36.4–36.7; O2SAT 96–98
[2021-08-01 05:23] LABS: Basophils # 0.1 10^3/uL (0.0-0.1); Basophils % 0.4 %; Eosinophils # 0.2 10^3/uL (0.0-0.8); Hematocrit 31.8 % (37.0-47.0); Hemoglobin 10.4 g/dL (11.5-15.3); Lymphocytes # 3.6 10^3/uL (0.8-4.8); Lymphocytes % 21.7 %; Mean Corpuscular HGB Conc 32.7 g/dL (30.0-36.0); Mean Corpuscular Hemoglobin 29.2 pg (28.0-34.0); Mean Corpuscular Volume 89.3 fl (81-99); Mean Platelet Volume 10.9 fL (7.4-10.4); Neutrophils # 11.28 10^3/uL (1.8-7.7); Neutrophils % 68.9 %; Nucleated Red Blood Cells % 0 %; Platelet Count 168 10^3/cmm (130-400); Red Blood Count 3.56 10^6/uL (4.1-5.3); Red Cell Distribution Width 12.9 % (12.1-15.1); White Blood Count 16.4 10^3/uL (4.0-10.0)
[2021-08-01] MEDS: lactated ringers 1,000 ML 999 ML IV ×2 (05:31→06:18)
[2021-08-01 05:56] LABS: Amphetamines Screen Urine Negative (Negative); Barbiturates Screen Urine Negative (Negative); Benzodiazepines Screen Urine Negative (Negative); Cocaine Screen Urine Negative (Negative); Opiate Screen Urine Negative (Negative); PCP Screen Urine Negative (Negative); THC Screen Urine Negative (Negative)
--- NOTE | 2021-08-01 06:55 | P.HP_ITS ---
Providers/Chief Complaint Admitting Physician: Daniel Acuna MD Primary Care Provider: Daniel Acuna MD Chief Complaint: c section and tubal History of Present Illness Komal Pryor is a 21 year old at 37.0 weeks gestation by 9-week ultrasound inconsistent with unknown LMP. Her is complicated by trichomonas, history of depression with suicide attempt outside of , history of drug abuse outside of , history of PID, Rh- status post RhoGam, genital herpes on acyclovir, history of prior low-transverse section, obesity, THC positive in first trimester, preeclampsia without active severe features, UTI in third trimester. The patient presented to labor delivery triage on the morning of 08/01/2021 for a scheduled repeat low-transverse section with request for a bilateral tubal ligation with early delivery secondary to preeclampsia. Her blood pressures at home have been up to 160 systolic and her 24-hour urine protein was 300 on 07/20/2021. The patient currently feels well. She did have an elevated blood pressure up to 160 last night, however she feels that this was due to nerves. She also has had a cough for the last few days and had a negative at home Covid test. The patient feels well otherwise. She denies any nausea, vomiting, constipation, diarrhea, fevers, leakage of fluid, vaginal bleeding. Medications/Allergies Home Medications Medication Instructions Recorded Confirmed Last Taken Type promethazine 12.5 mg tablet 12.5 mg PO Q6H PRN 10/07/20 07/18/21 07/18/21 08:00 History hydroxyzine pamoate 50 mg capsule 50 mg PO Q8H PRN #10 cap 11/22/20 06/03/21 07/18/21 08:00 Rx (Vistaril) cimetidine HCl 07/18/21 07/18/21 History 08 labetalol 100 mg tablet 150 mg 07/18/21 07/18/21 08:00 History promethazine 25 mg tablet mg 07/18/21 07/18/21 History 0800 Allergies Allergy/AdvReac Type Severity Reaction Status Date / Time latex Allergy ALGY-Rash Verified 01/13/21 10:26 PFSH Acute PFSH: Medical History Depression Methamphetamine abuse No pertinent past medical history neghx: htn,dm,thyroid,dvt/pe Psychiatric care Surgical History S/P section (~12/23/18) per Dr. Acuna at [facility] [place]P cholecystectomy S/P wisdom tooth extraction Family History Mother Thyroid condition Hypertension Grandmother Breast cancer paternal Father Diabetes Heart disease Sister Thyroid condition Social History Smoking and tobacco status: current every day smoker Alcohol intake: never Additional social history: Tobacco use: Current everyday smoker; 0.25pk daily Alcohol use: Daily Drug use: 1/4 gram smoked at hs; has med marijuana card Female Reproductive History: Date of last menstrual period: 11/15/20 : 4 Para: 2 Spontaneous abortions: Yes (1) Vitals/I&O/Wt Last Vital Signs Pulse 92 08/01/21 05:30 Resp 16 08/01/21 05:02 BP 135/86 08/01/21 05:30 07/31/21 07/31/21 08/01/21 14:59 22:59 06:59 Intake Total 1000 / 1000 Balance 1000 / 1000 Weight last 48 hrs Weight 248 lb Physical Exam Narrative: General: Alert and oriented x3 Eyes: Pupils equal round and reactive to light and accommodation Mouth: Mucous membranes moist, pharynx non-erythematous Cardiac: Regular rate and rhythm without murmurs Lungs: Mild wheezes noted throughout, no significant crackles. Occasional rhonchi in the left lung. Abdomen: Soft, non-tender, fundus consistent with gestational age, no infection noted. Extremities: Trace edema in the bilateral lower extremities, brisk reflexes bilaterally. Data : 08/01/21 05:06 A&P Assessment and plan (1) Intrauterine : Status: Acute (2) Preeclampsia: Status: Acute Plan We will proceed with a scheduled repeat low-transverse section with bilateral tubal ligation. The patient reiterates that she would like to have a tubal ligation done today. The patient does have a mild cough. This seems most consistent with a viral cold. She is not showing significant signs of complications with it. I believe that she is stable for surgery at this time. We will certainly watch for signs of complications afterwards. We will also watch for signs of complications related to preeclampsia. Currently the patient's blood pressures are well controlled. The patient is in agreement with proceeding with repeat low-transverse section with bilateral tubal ligation. All questions were answered. Attestations Medical Necessity Statement*: The patient will be here for greater than 2 midnights due to routine intrapartum and management of labor and delivery. Coding Level of Care Code Acute Clinical Support Nurse for Barb Chappell Diagnoses Intrauterine Z34.90 Preeclampsia O14.90
--- NOTE | 2021-08-01 07:01 | ANES.PREANE2 ---
Documented by User: Perlita Duvall CRNA 08/01/21 09:25 Pre-Anesthetic Assessment Height/Weight: Height 1.65 m Weight 112.491 kg Pulse Resp BP 92 16 135/86 08/01/21 05:30 08/01/21 05:02 08/01/21 05:30 Preop Diagnosis: prior c section, planned repeat c section Operation Date: 08/01/21 07:00 Proposed Procedures p Section Repeat With Tubal/[id number](Not Applicable) - Daniel Acuna MD Last intake: Intake Last Liquid Date 07/31/21 Last Liquid Time 22:00 Last Solid Date 07/31/21 Last Solid Time 22:00 Last Intake: 23:00 Social Tobacco quit smoking yesterday Exam alert Airway Submandibular: within normal limits Cervical ROM: within normal limits Mallampati: Class II History/ROS No significant history except as noted CV/HEM Hypertension took BP meds yesterday Musc/skel Scoliosis Anesthetic Plan ASA status: 2 Anesthesia: Anesthesia Evaluation (No changes from previous anesthesia evaluation. All questions answered.) Risk of > 500 ml blood loss (7ml/kg in children): Yes, adequate IV access and fluids planned Medications/Allergies Home Medications Medication Instructions Recorded Confirmed Last Taken Type promethazine 12.5 mg tablet 12.5 mg PO Q6H PRN 10/07/20 07/18/21 07/18/21 08:00 History hydroxyzine pamoate 50 mg capsule 50 mg PO Q8H PRN #10 cap 11/22/20 06/03/21 07/18/21 08:00 Rx (Vistaril) cimetidine HCl 07/18/21 07/18/21 History 0800 labetalol 100 mg tablet 150 mg 07/18/21 07/18/21 08:00 History promethazine 25 mg tablet mg 07/18/21 07/18/21 History 0800 Allergies Allergy/AdvReac Type Severity Reaction Status Date / Time latex Allergy ALGY-Rash Verified 01/13/21 10:26 Current Medications Generic Name Dose Route Start Last Admin Trade Name Freq PRN Reason Stop Dose Admin Lactated Ringer's 1,000 mls @ 999 mls/hr 08/01/21 05:01 08/01/21 06:18 Lactated Ringers IV 999 mls/hr .Q1H1M PRN Administration HYPOTENSION Dextrose/Lactated Ringer's 1,000 mls @ 125 mls/hr 08/01/21 05:15 08/01/21 06:21 Dextrose 5%-Lactated Ringers IV Not Given .Q8H BLANE Lactated Ringer's 1,000 mls @ 125 mls/hr 08/01/21 05:15 08/01/21 06:21 Lactated Ringers IV Not Given .Q8H BLANE PFSH Anesthesia Medical History Depression Methamphetamine abuse No pertinent past medical history neghx: htn,dm,thyroid,dvt/pe Psychiatric care Surgical History S/P section (~12/23/18) per Dr. Acuna at [facility] [place]/P cholecystectomy S/P wisdom tooth extraction Family History Mother Thyroid condition Hypertension Grandmother Breast cancer paternal Father Diabetes Heart disease Sister Thyroid condition Social History Smoking and tobacco status: current every day smoker Alcohol intake: never Additional social history: Tobacco use: Current everyday smoker; 0.25pk daily Alcohol use: Daily Drug use: 1/4 gram smoked at hs; has med marijuana card Female Reproductive History Date of last menstrual period: 11/15/20 : 4 Para: 2 Spontaneous abortions: Yes (1) Data Anesthesia : 08/01/21 05:06 Short CBC 08/01/21 Range/Units 05:06 WBC 16.4 H (4.0-10.0) 10^3/uL Hgb 10.4 L (11.5-15.3) g/dL Hct 31.8 L (37.0-47.0) % MCV 89.3 (81-99) fl Plt Count 168 (130-400) 10^3/cmm Neut % (Auto) 68.9 % Neut # (Auto) 11.28 H (1.8-7.7) 10^3/uL Cardiac Studies: No Data to Display
[2021-08-01] MEDS: famotidine 20 mg/2 mL INJ IVP (07:05)
[2021-08-01] MEDS: citric acid-sodium citrate 30 mL UDC PO (07:05)
[2021-08-01] MEDS: metoclopramide 5 mg/mL SDV 2 mL 10 MG IVP (07:05)
--- NOTE | 2021-08-01 09:09 | PM.OP ---
Operative Report Date of procedure: August 01, 2021 Pre-op diagnosis: 1. Intrauterine at 37.0 weeks gestation 2. Requesting sterilization 3. Trichomonas during first trimester 4. Rh- status 5. Genital herpes on acyclovir 6. Prior low transverse section 7. Obesity 8. THC positive in first trimester 9. Preeclampsia with intermittent severe features 10. UTI in third trimester Post-op diagnosis: 1. Intrauterine status post repeat low transverse section with bilateral tubal ligation at 37.0 weeks gestation 2. Status post bilateral tubal ligation 3. Trichomonas during first trimester 4. Rh- status 5. Genital herpes on acyclovir 6. Prior low transverse section 7. Obesity 8. THC positive in first trimester 9. Preeclampsia with intermittent severe features 10. UTI in third trimester 11. Delivery of healthy female weighing 6 pounds 4 ounces with Apgars of 8 and 9 Procedure done: Repeat low-transverse section with bilateral tubal ligation Specimens removed/disposition: Bilateral tube segments sent to pathology Placenta discarded Surgeon: Daniel Acuna MD Estimated blood loss: 500 mL IV fluids: 1400 mL Urine output: 100 mL Findings: Komal Pryor is a 21 year old G4 now P1213 status post repeat low transverse section with bilateral tubal ligation at 37.0 weeks gestation by 9-week ultrasound inconsistent with unknown LMP.? Her was complicated by trichomonas, history of depression with suicide attempt outside of , history of drug abuse outside of , history of PID, Rh- status post RhoGam, genital herpes on acyclovir, history of prior low-transverse section, obesity, THC positive in first trimester, preeclampsia without active severe features, UTI in third trimester. Brief History: The patient was brought in for a repeat low transverse section at 37 weeks due to preeclampsia. The patient has been feeling well and denies any nausea, seeing flashes of light, headaches. Her blood pressures are occasionally reaching the 160s but typically in the 130s and 140s systolic. She had a mild cough prior to the surgery. Procedure: After informed consent was obtained, the patient was taken to the operating room and the patient was prepped and draped in a normal sterile fashion in the dorsal supine position.? A spinal was placed and adequate anesthesia was obtained.? At 7:36 AM on 08/01/2021 a Pfannenstiel skin incision was made and carried through to the underlying layer of fascia using a scalpel.? The fascial incision was then extended laterally using curved Mayos.? The fascia was then grasped with Ollie clamps and the underlying rectus muscles were dissected off taking care to avoid injury to the underlying tissues.? The peritoneum was entered bluntly with one digit.? It was then bluntly.? The bladder blade was placed and the vesicouterine peritoneum was well below the lower uterine segment of the uterus.? The uterine incision was made in the lower uterine segment in a transverse fashion with the scalpel at 7:43 AM.? The amniotic membrane was entered bluntly and a moderate amount of clear fluid was noted.? Uterine pressure was placed and the infant's head delivered without complication at 7:44 AM.? There was no nuchal cord.? The mouth and nose were suctioned.? The rest of the infant delivered without difficulty.? The took a breath immediately upon delivery.? The cord was clamped and cut and the infant was handed to the awaiting pediatric nurses.? The placenta was then manually expressed.? The uterus was exteriorized from the abdomen.? A wet lap was used to clear the uterus of clots and debris.? The bladder blade was reinserted and the uterine incision was closed using 0 chromic in a running locking fashion.? The uterus was noted to be firm.? A second layer of the same suture was used in the same manner.? Excellent hemostasis was obtained. The bilateral fallopian tubes were located. Babcocks were used to raise the fallopian tube segment and a window was burned underneath the right fallopian tube. 0 chromic was used tie off a section of the tube on each side. A tube segment was removed using Metzenbaums. The remaining fallopian tube segment and was cauterized on each side. A modified Marathon technique was used. The fallopian tube segment was sent to pathology. This was repeated on the left side. Excellent hemostasis was noted. Next the posterior cul-de-sac was inspected and was cleared of any blood. The gutters were cleared of any further clots and debris and the uterine incision was again inspected and hemostasis was noted.? The subfascial tissue was inspected for hemostasis and the peritoneum was re-approximated using 2-0 plain in a running fashion.? The fascia was then re-approximated using 0 Vicryl in a running fashion.? The subcutaneous tissue was inspected for hemostasis.? Hany's fascia was then re-approximated using 3-0 plain in a running fashion.? Good hemostasis was noted.? The subcutaneous tissue was then re-approximated using a subcuticular stitch.? The patient tolerated the procedure well and was recovered in stable condition.? Estimated blood loss was 500 mL. Urine in the Leiva catheter was clear. The patient was taken to recovery in good condition.
[2021-08-01] MEDS: lactated ringers 1,000 ML 125 ML IV (10:01)
[2021-08-01] MEDS: diphenhydrAMINE 50 mg/mL SDV 1mL 25 MG IVP ×2 (11:52→21:30)
[2021-08-01] MEDS: ondansetron 2 mg/ML SDV 2 mL 4 MG IVP ×2 (11:52→15:54)
--- NOTE | 2021-08-01 14:16 | ANE.PACU2 ---
Inpatient post-anesthesia follow up: Airway intact: Yes Vital signs: Temperature Pulse Rate 92 Respiratory Rate 16 Blood Pressure 135/86 Pulse Oximetry Oxygen Delivery Me thod Room Air Oxygen Flow Rate Fraction of Inspir ed Oxygen Hydration adequate: Yes Nausea and vomiting: No Pain level: 3 Mental status: Baseline
[2021-08-01] MEDS: ketorolac 30 mg/mL INJ IVP ×2 (14:45→21:25)
[2021-08-01] MEDS: oxyCODONE-APAP 5-325 mg Tablet PO (15:55)
[2021-08-01] MEDS: ferrous sulfate EC 325 mg Tablet PO (17:31)
[2021-08-01] MEDS: docusate sodium 100 mg Capsule PO (17:32)
[2021-08-01] MEDS: dextrose 5%-lactated ringers 1,000 ML 125 ML IV (17:44)
[2021-08-01 23:12] LABS: Hematocrit 32.4 % (37.0-47.0); Hemoglobin 10.3 g/dL (11.5-15.3); Mean Corpuscular HGB Conc 31.8 g/dL (30.0-36.0); Mean Corpuscular Hemoglobin 29.1 pg (28.0-34.0); Mean Corpuscular Volume 91.5 fl (81-99); Mean Platelet Volume 11.1 fL (7.4-10.4); Platelet Count 155 10^3/cmm (130-400); Red Blood Count 3.54 10^6/uL (4.1-5.3); Red Cell Distribution Width 12.9 % (12.1-15.1); White Blood Count 15.8 10^3/uL (4.0-10.0)
[2021-08-02] VITALS (9 sets, daily range): BP systolic 116–135; BP diastolic 75–84; PULSE 64–89; RESP 14–18; TEMP 36.4–36.8; O2SAT 98
[2021-08-02] MEDS: oxyCODONE-APAP 5-325 mg Tablet PO ×5 (00:45→20:54)
[2021-08-02] MEDS: dextrose 5%-lactated ringers 1,000 ML 125 ML IV (01:58)
[2021-08-02] MEDS: ketorolac 30 mg/mL INJ IVP (03:31)
[2021-08-02] MEDS: docusate sodium 100 mg Capsule PO (07:18)
[2021-08-02] MEDS: prenatal vitamin Capsule 1 CAP PO (07:18)
[2021-08-02] MEDS: ferrous sulfate EC 325 mg Tablet PO ×2 (07:18→18:05)
--- NOTE | 2021-08-02 07:34 | XR_ITS ---
WS: [id number] Exam: XR chest 1V portable [id number] Date/Time of Exam: 08/02/2021 7:46 AM Reason For Exam: Cough Comparison 09/04/2020. The lungs are clear. Mild plaque atelectasis in the left lower lobe. No pleural effusions. Normal car diomediastinal silhouette. The osseous thorax is intact. XR/XR chest 1V portable [id number] IMPRESSION: 1. No acute cardiopulmonary finding.
--- NOTE | 2021-08-02 07:49 | PM.PN ---
Subjective Subjective: The patient has been having more abdominal pain. She has not had anything for pain for the last 9 hours. The pain seems to be in her lower abdomen. She has been tolerating food by mouth. She did have some nausea yesterday that has improved. Unfortunately her cough is worsening and this is making her abdominal pain worse. Otherwise she is ambulating, passing gas and tolerating food by mouth. Her blood pressures have been in the normal range. Vitals/I&O/Wt Last Vital Signs Temp 98.0 F 08/02/21 04:02 Pulse 71 08/02/21 04:02 Resp 18 08/02/21 07:17 BP 116/75 08/02/21 04:02 Pulse Ox 98 08/02/21 04:02 08/01/21 08/02/21 08/02/21 22:59 06:59 14:59 Intake Total 1400 / 1400 1254.167 / 2654.167 Output Total 1325 / 1545 1800 / 3345 Balance 75 / -145 -545.833 / -690.833 Weight last 48 hrs Weight 248 lb Physical Exam Narrative: General: Alert and oriented x3 Cardiac: Regular rate and rhythm without murmurs Lungs: Mildly decreased air entry bilaterally with diffuse wheezes. No significant crackles or rhonchi. Abdomen: Soft, mild tenderness over uterus and lower abdomen without rebound tenderness. The uterus is firm and 2 cm below the umbilicus. Incision is clean and dry without signs of infection or dehiscence. Extremities: Trace edema in the bilateral lower extremities Urinary Catheter Management: Leiva: Cath Placed During This Visit: yes, but has since been removed by the nurse Reason for Continuing Indwelling Catheter: Required Immobilization for Trauma or Surgery or Anesthesia Urinary Catheter Date of Insertion: 08/01/21 Urinary Catheter Time of Insertion: 07:30 Date Urinary Catheter Removed: 08/02/21 Time Urinary Catheter Discontinued: 04:01 Data : 08/01/21 21:55 A&P Assessment and plan (1) Preeclampsia: Status: Acute (2) Delivery by section: Status: Acute (3) Bronchitis: Status: Acute Plan The patient is having pain after her section, otherwise is doing well. I believe that the increased pain is likely related to pain from her tubal. I do not feel that this is clinically from a significant bleed. Her pulse is normal. Her blood pressure is in the normal range. Continue with pain management. The patient's lungs certainly do have wheezing today. We will get a chest x-ray to rule out pneumonia. I will have respiratory assess and treat. The patient's blood pressures are improved and she is improving from preeclampsia well. Attestations Medical Necessity Statement*: The patient continues to need inpatient care she recovers after surgery. Her stay will cross 2 midnights. 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
[2021-08-02] MEDS: amoxicillin-clav 875-125 mg Tablet 1 TAB PO ×2 (08:26→18:05)
[2021-08-02 10:17] LABS: Influenza A by IFA Negative (Negative); Influenza B by IFA Negative (Negative)
[2021-08-02] MEDS: ondansetron 2 mg/ML SDV 2 mL 4 MG IVP (12:29)
[2021-08-02] MEDS: ibuprofen 800 mg tablet PO ×2 (15:21→20:54)
[2021-08-03 01:37] VITALS: RESP 14
[2021-08-03] MEDS: oxyCODONE-APAP 5-325 mg Tablet PO ×2 (01:37→08:05)
[2021-08-03 04:55] VITALS: BP 128/78; PULSE 88; RESP 15; TEMP 36.6; TEMP 36.7; O2SAT 98
[2021-08-03] MEDS: amoxicillin-clav 875-125 mg Tablet 1 TAB PO (08:04)
[2021-08-03] MEDS: ibuprofen 800 mg tablet PO (08:04)
[2021-08-03] MEDS: prenatal vitamin Capsule 1 CAP PO (08:04)
[2021-08-03 08:05] VITALS: RESP 18
--- NOTE | 2021-08-03 08:33 | P.DS_ITS ---
Discharge Providers Date of Admission: 08/01/21 04:50 Date of Discharge: August 03, 2021 Attending Provider at Admission: Daniel Acuna MD Attending Provider at Discharge: Daniel Acuna MD Primary Care Provider: Daniel Acuna MD Diagnoses at Discharge Discharge Diagnosis (1) Preeclampsia: Status: Acute (2) Delivery by section: Status: Acute (3) Bronchitis: Status: Acute Other Information Additional DC diagnoses/information: 1.? Intrauterine status post repeat low transverse section with bilateral tubal ligation at 37.0 weeks gestation 2.? Status post bilateral tubal ligation 3.? Trichomonas during first trimester 4.? Rh- status 5.? Genital herpes on acyclovir 6.? Prior low transverse section 7.? Obesity 8.? THC positive in first trimester 9.? Preeclampsia with intermittent severe features 10.? UTI in third trimester 11.? Bronchitis 12. Delivery of healthy female weighing 6 pounds 4 ounces with Apgars of 8 and 9 Reason for Visit Reason for Visit: c section and tubal Hospital Course Hospital Course Komal Pryor is a 21 year old G4 now P1213 status post repeat low-transverse section with bilateral tubal ligation at 37.0 weeks gestation by 9-week ultrasound inconsistent with unknown LMP.? Her was complicated by tr ichomonas, history of depression with suicide attempt outside of , history of drug abuse outside of , history of PID, Rh- status post RhoGam, genital herpes on acyclovir, history of prior low-transverse section, obesity, THC positive in first trimester, preeclampsia without active severe features, UTI in third trimester. The patient presented to labor delivery triage on the morning of 08/01/2021 for a scheduled repeat low-transverse section with request for a bilateral tubal ligation with early delivery secondary to preeclampsia without active severe features. Her blood pressures at home have been up to 160 systolic and her 24-hour urine protein was 300 on 07/20/2021. The patient had a repeat low-transverse section with bilateral tubal ligation and has not had any complications, however she has had more pain than I would expect. This is currently well controlled with pain medications. She has no hypotension or tachycardia to suggest a significant bleed. This may be exacerbated by her having a cough consistent with bronchitis. Her flu test was negative. Her COVID test was negative the day prior to presentation. Overall she is improving at this time and her pain is under control. She is ambulating, voiding, passing gas and tolerating food by mouth. Her cough is showing signs of improvement. Routine discharge instructions were discussed with and we will plan for discharge home today with follow-up over the next 1 to 2 weeks. Physical Exam Narrative: General: Alert and oriented x3 Cardiac: Regular rate and rhythm without murmurs Lungs: Good air entry bilaterally without wheezes, crackles or rhonchi. Abdomen: Soft, mild to moderate tenderness over uterus and lower abdomen without rebound tenderness.? The uterus is firm and 2 cm below the umbilicus.? Incision is clean and dry without signs of infection or dehiscence. Extremities: Trace edema in the bilateral lower extremities Urinary Catheter Management: Leiva: Cath Placed During This Visit: yes, but has since been removed by the nurse Reason for Continuing Indwelling Catheter: Required Immobilization for Trauma or Surgery or Anesthesia Urinary Catheter Date of Insertion: 08/01/21 Urinary Catheter Time of Insertion: 07:30 Date Urinary Catheter Removed: 08/02/21 Time Urinary Catheter Discontinued: 04:01 Discharge Data Studies Completed and Pending Completed Studies During Hospitalization Category Date Time Status CXRP [XR chest 1V portable [id number]] Routine Exams 08/02/21 07:34 Completed Pending at discharge Category Date Time Status Complete Crossmatch Routine Lab 08/01/21 05:06 Results Rho D Immune Globulin Routine Lab 08/01/21 05:06 Results Type and Screen Routine Lab 08/01/21 05:06 Results Pathology: Surgical [PTH] Routine Pth 08/01/21 10:19 Received Radiology Impressions Chest X-Ray 08/02/21 07:34 IMPRESSION: 1. No acute cardiopulmonary finding. Laboratory Results WBC 15.8 10^3/uL (4.0-10.0) H 08/01/21 21:55 RBC 3.54 10^6/uL (4.1-5.3) L 08/01/21 21:55 Hgb 10.3 g/dL (11.5-15.3) L 08/01/21 21:55 Hct 32.4 % (37.0-47.0) L 08/01/21 21:55 MCV 91.5 fl (81-99) 08/01/21 21:55 MCH 29.1 pg (28.0-34.0) 08/01/21 21:55 MCHC 31.8 g/dL (30.0-36.0) 08/01/21 21:55 RDW 12.9 % (12.1-15.1) 08/01/21 21:55 Plt Count 155 10^3/cmm (130-400) 08/01/21 21:55 MPV 11.1 fL (7.4-10.4) H 08/01/21 21:55 Neut % (Auto) 68.9 % 08/01/21 05:06 Lymph % (Auto) 21.7 % 08/01/21 05:06 [place] % (Auto) 6.0 % 08/01/21 05:06 Eos % (Auto) 1.0 % 08/01/21 05:06 Baso % (Auto) 0.4 % 08/01/21 05:06 Neut # (Auto) 11.28 10^3/uL (1.8-7.7) H 08/01/21 05:06 Lymph # (Auto) 3.6 10^3/uL (0.8-4.8) 08/01/21 05:06 [place] # (Auto) 1.0 10^3/uL (0.2-0.9) H 08/01/21 05:06 Eos # (Auto) 0.2 10^3/uL (0.0-0.8) 08/01/21 05:06 Baso # (Auto) 0.1 10^3/uL (0.0-0.1) 08/01/21 05:06 Nucleated RBC % (auto) 0 % 08/01/21 05:06 Nucleated RBCs # 0.0 /100WBC 08/01/21 05:06 Urine Opiates Screen Negative ng/mL (Negative) 08/01/21 05:06 Ur Barbiturates Screen Negative ng/mL (Negative) 08/01/21 05:06 Ur Phencyclidine Scrn Negative ng/mL (Negative) 08/01/21 05:06 Ur Amphetamines Screen Negative ng/mL (Negative) 08/01/21 05:06 U Benzodiazepines Scrn Negative ng/mL (Negative) 08/01/21 05:06 Urine Cocaine Screen Negative ng/mL (Negative) 08/01/21 05:06 U Marijuana (THC) Screen Negative ng/mL (Negative) 08/01/21 05:06 Influenza Type A Ag Negative (Negative) 08/02/21 09:18 Influenza Type B Ag Negative (Negative) 08/02/21 09:18 Blood Type O Negative 08/01/21 05:06 Rho(D) Type Negative 08/01/21 05:06 Antibody Screen Negative 08/01/21 05:06 Screen Negative (Negative) 08/01/21 21:55 Vitals Last Vital Signs Temp 98.0 F 08/03/21 04:55 Pulse 88 08/03/21 04:55 Resp 18 08/03/21 08:05 BP 128/78 08/03/21 04:55 Pulse Ox 98 08/03/21 04:55 Discharge Plan Discharge Patient Disposition: Home Condition: Stable Prescriptions: New oxycodone-acetaminophen 5-325 mg Tablet 1 tab PO Q6H PRN (Reason: Moderate To Severe Pain) Qty: 30 0RF ferrous sulfate 325 mg (65 mg iron) Tablet,Delayed Release (Dr/Ec) 325 mg PO BIDWM Qty: 30 0RF -U 106.5-1 mg Capsule 1 cap PO BREAKFAST Qty: 30 0RF ibuprofen 800 mg Tablet 800 mg PO TID Qty: 60 0RF Discontinued promethazine 25 mg tablet 25 mg PO QID PRN (Reason: Nausea And Vomiting) 0RF labetalol 100 mg tablet 150 mg PO BID 0RF cimetidine HCl 1 tab PO DAILY 0RF Discharge Orders: Discharge Order (Routine); Ordered 08/03/21 Ordered By: Daniel Acuna Referrals: Daniel Acuna MD [Primary Care Provider] - 7-10 days Discharge Diet: Regular Discharge Activity: Increase activity as tolerated Patient Instructions: Ibuprofen (By mouth) (Advil, Advil Children's, Motrin, Children's..., Oxycodone/Acetaminophen (By mouth) (Percocet, Roxicet), Depression (DC), Preeclampsia and Eclampsia After Delivery (GEN), Opioid Safety, [facility], Abnormal Bleeding Activity Restrictions/Additional Instructions: Do not lift anything heavier than your in the car seat for the first 3 weeks, then gradually increase. No driving for 2 weeks. If you have any concern that your incision site is becoming infected, please seek immediate medical attention. Discharge Attestations Time Spent in Discharge Care*: greater than 30 min Quality Metrics Clinical Quality Measures [ No reported AMI, CVA or VTE this stay] Coding Level of Care Code Acute Chg FW DC note Diagnoses Preeclampsia O14.90 Delivery by section Bronchitis J40
[2021-08-03 09:32] VITALS: BP 145/82; PULSE 96; RESP 16; TEMP 36.7; O2SAT 99
[2021-08-03 09:57] VITALS: BP 145/82; PULSE 96; RESP 16; TEMP 36.7; O2SAT 99
== END 2021-08-03 10:00 | disposition home or self-care (01) | DRG 784 ==
PROVIDERS: Admitting Provider Family Medicine; PCP Family Medicine; Visit Provider Family Medicine
PROC: 10D00Z1 Extraction of Products of Conception, Low, Open Approach (ICD-10-PCS; CPT 59514; principal; 2021-08-01 07:00)
DX: O14.04 Mild to moderate pre-eclampsia, complicating childbirth (principal); O98.32 Other infections with a predominantly sexual mode of transmission complicating childbirth; O34.211 Maternal care for low transverse scar from previous cesarean delivery; O99.892 Other specified diseases and conditions complicating childbirth; A60.00 Herpesviral infection of urogenital system, unspecified; N85.8 Other specified noninflammatory disorders of uterus; O99.214 Obesity complicating childbirth; Z3A.37 37 weeks gestation of pregnancy; Z37.0 Single live birth; Z30.2 Encounter for sterilization; J40 Bronchitis, not specified as acute or chronic; A59.9 Trichomoniasis, unspecified; Z67.91 Unspecified blood type, Rh negative; O99.334 Smoking (tobacco) complicating childbirth; F17.210 Nicotine dependence, cigarettes, uncomplicated; O99.324 Drug use complicating childbirth; F12.90 Cannabis use, unspecified, uncomplicated; E66.9 Obesity, unspecified
CPT/HCPCS: 36415; 51702; 59025; 71045; 80306; 85025; 85027; 85460; 86850; 86900; 87804; 88302; 90384; J0690; J1200; J1885; J2274; J2370; J2405; J2765; J3010; J3490; J7030

== ENCOUNTER → 2021-09-20 13:43 | Outpatient (BNVA) | payer OTHER, SELFPAY | PROVIDERS: PCP Family Medicine; Visit Provider Counselor Mental Health | DX: F41.9 Anxiety disorder, unspecified (principal); F32.9 Major depressive disorder, single episode, unspecified | CPT/HCPCS: 90791; 80061; 83036 ==

== ENCOUNTER → 2021-09-26 11:21 | Outpatient (BNVA) | payer OTHER, SELFPAY | PROVIDERS: PCP Family Medicine; Visit Provider Nurse Practitioner | DX: F43.12 Post-traumatic stress disorder, chronic (principal); F41.1 Generalized anxiety disorder; F15.11 Other stimulant abuse, in remission; F12.10 Cannabis abuse, uncomplicated; F17.210 Nicotine dependence, cigarettes, uncomplicated | CPT/HCPCS: 90792 ==

== ENCOUNTER → 2021-11-02 19:03 | Outpatient (BNVA) | payer MEDICAID, SELFPAY | PROVIDERS: PCP Family Medicine; Visit Provider Emergency Medicine | DX: R39.9 Unspecified symptoms and signs involving the genitourinary system (principal) | CPT/HCPCS: 81000; 81025 ==

== ENCOUNTER 2021-11-18 15:38 | Emergency (ER) | payer MEDICAID, SELFPAY ==
[2021-11-18 15:56] VITALS: BP 151/85; PULSE 77; RESP 16; TEMP 36.6; O2SAT 99
[2021-11-18 16:00] VITALS: BP 124/84; PULSE 77; RESP 18; O2SAT 98
[2021-11-18 18:00] VITALS: BP 123/86; PULSE 68; RESP 16; O2SAT 100
[2021-11-18 18:00] LABS: Add Urine Microscopic? NO; Charge for UA Resulting for Rev
--- NOTE | 2021-11-18 18:02 | W.ED.FEMALGU ---
HPI - Female Genitourinary General: Chief complaint: Vaginal Bleeding Stated complaint: ABD Pains, Spotting Time Seen by Provider: 11/18/21 17:23 Source: patient Mode of arrival: ambulatory History of Present Illness: 21-year-old male 21-year-old female presents to the emergency room with complaints of vaginal bleeding for the last 3 days. She had her last normal period about a week and a half ago and then began having heavy menses again with significant amount of cramping. 4 months ago she had a tubal ligation. She has had some breast tenderness with that as well. She had a little bit of bloody mucousy vaginal discharge prior to the onset of the heavy bleeding. She denies any fever sweats chills no dysuria urgency or frequency. MD elicited complaint: vaginal bleeding and pelvic pain Pertinent past history: tubal ligation Onset (ago): day(s) (3) Location of symptoms: pelvis Severity: moderate Quality of pain: cramping Consistency: constant Vaginal bleeding: heavy Exacerbating factors: none Relieving factors: none Associated symptoms: Reports vaginal bleeding; Deny abdominal pain, short of breath, fevers/chills, headache(s), nausea, rash, seizures, syncope, vaginal discharge or weakness Sexual activity: Yes Possible : unsure if Date of Last Menstrual Period: 11/04/21 Review of Systems Const: Denies: fever(s), chills, body aches, change in appetite, fatigue or malaise ENMT: Denies: throat pain, ear or mastoid pain, nasal discharge or nasal congestion Card: Denies: chest pain, palpitations or syncope Resp: Denies: dyspnea, productive cough or non-productive cough GI: Denies: abdominal pain or nausea : Denies: flank pain, difficulty voiding, dysuria, urinary frequency, urinary urgency or vaginal discharge Skin/Breast: Denies: rash or pruritus Neuro: Denies: headache(s) PFSH ED PFSH: Medical History Cannabis abuse, uncomplicated Depression Generalized anxiety disorder Methamphetamine abuse Methamphetamine abuse in remission Nicotine dependence, cigarettes, uncomplicated No pertinent past medical history neghx: htn,dm,thyroid,dvt/pe Post-traumatic stress disorder, chronic Preeclampsia Psychiatric care Surgical History Delivery by section S/[place] (~12/23/18) [place] [facility] [place] S/P wisdom tooth extraction Family History Mother Thyroid condition Hypertension Grandmother Breast cancer paternal Father Diabetes Heart disease Sister Thyroid condition Social History Smoking and tobacco status: current every day smoker Alcohol intake: never Additional social history: Tobacco use: Current everyday smoker; 0.25pk daily Alcohol use: Daily Drug use: 1/4 gram smoked at hs; has med marijuana card Female Reproductive History: Date of last menstrual period: 11/04/21 Para: 2 Spontaneous abortions: Yes (1) Physical Exam Const: GENERAL APPEARANCE: cooperative and comfortable ORIENTATION/CONSCIOUSNESS: Yes awake, Yes oriented to person, Yes oriented to place and Yes oriented to time HENMT: COMMON NORMALS: normocephalic, atraumatic and hearing grossly normal bilaterally HEAD & SCALP: normocephalic and atraumatic Resp: COMMON NORMALS: normal respiratory effort, No retractions, No use of accessory muscles and clear to auscultation bilaterally AUSCULTATION: clear to auscultation bilaterally Cardio: COMMON NORMALS: regular rate, regular rhythm and No murmurs present (Cardio) RATE: regular rate RHYTHM: regular rhythm GI: COMMON NORMALS: Soft to palpation and No hepatosplenomegaly present AUSCULTATION: Yes normoactive bowel sounds PALPATION: Yes Soft to palpation, No Tenderness to palpation present (GI), No Guarding due to palpation present (GI) and Yes No hepatosplenomegaly present : SPECULUM EXAM - VAGINA: Yes vaginal bleeding OB/EXTERNAL & SPECULUM: vaginal bleeding Extremity: COMMON NORMALS: normal to inspection, capillary refill normal, no clubbing, cyanosis or edema, no calf tenderness and no pedal edema Neuro: SENSORIUM/ORIENTATION: Yes oriented to person, Yes oriented to place and Yes oriented to time Skin: COMMON NORMALS: no rashes or lesions noted GENERAL SKIN EXAM: no rashes or lesions noted Course Vital Signs: Vital signs: Vital Signs Temperature 97.8 F 11/18/21 15:56 Pulse Rate 77 11/18/21 15:56 Respiratory Rate 16 11/18/21 15:56 Blood Pressure 151/85 11/18/21 15:56 Pulse Oximetry 99 11/18/21 15:56 Oxygen Delivery Me thod 11/18/21 15:56 MDM - Female Medical Decision Making Heavy vaginal bleeding with breast tenderness. Quantitative hCG CBC and BMP are pending. UA is negative. Potential imaging pending quantitative beta-hCG. Care signed out to Dr. Esteves at change of shift. See final notes for diagnosis and disposition. Lab Data Laboratory Results Urine Color Yellow (Yellow) 11/18/21 17:50 Urine Appearance Clear (CLEAR) 11/18/21 17:50 Urine pH 6.5 (5-7) 11/18/21 17:50 Ur Specific [place] 1.010 (1.005-1.030) 11/18/21 17:50 Urine Protein Neg (Negative) 11/18/21 17:50 Urine Glucose (UA) Norm (Normal) 11/18/21 17:50 Urine Ketones Negative (Negative) 11/18/21 17:50 Urine Blood Neg (Negative) 11/18/21 17:50 Urine Nitrate Negative (Negative) 11/18/21 17:50 Urine Bilirubin Neg (Negative) 11/18/21 17:50 Urine Urobilinogen Norm mg/dL (Negative) 11/18/21 17:50 Ur Leukocyte Esterase Negative (Negative) 11/18/21 17:50 Discharge Plan Discharge Condition: Stable Prescriptions: No Action paroxetine HCl [Paxil] 10 mg tablet 10 mg PO DAILY Qty: 30 1RF quetiapine [Seroquel] 25 mg tablet 12.5 mg PO BID Qty: 30 1RF nitrofurantoin monohyd/m-cryst [Macrobid] 100 mg capsule 100 mg PO BID 7 Days Qty: 14 0RF Rx Instructions: must administer with a meal/food phenazopyridine [Pyridium] 200 mg tablet 200 mg PO Q8H PRN (Reason: pain) Qty: 9 0RF Referrals: Daniel Acuna MD [Primary Care Provider] - Coding Level of Care Code ED [employer] 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
[2021-11-18 18:03] LABS: Bilirubin Urine Neg (Negative); Blood Urine Neg (Negative); Glucose Urine UA Norm (Normal); Ketones Urine Negative (Negative); Leukocyte Esterase Urine Negative (Negative); Nitrate Urine Negative (Negative); Protein Urine Neg (Negative); Urine Appearance Clear (CLEAR); Urine Color Yellow (Yellow); Urobilinogen Urine Norm (Negative); pH Urine 6.5 (5-7)
[2021-11-18 18:13] LABS: Basophils % 0.4 %; Eosinophils # 0.1 10^3/uL (0.0-0.8); Eosinophils % 0.7 %; Hematocrit 40.8 % (37.0-47.0); Hemoglobin 12.7 g/dL (11.5-15.3); Lymphocytes # 3.6 10^3/uL (0.8-4.8); Lymphocytes % 34.9 %; Mean Corpuscular HGB Conc 31.1 g/dL (30.0-36.0); Mean Corpuscular Hemoglobin 26.5 pg (28.0-34.0); Monocytes # 0.5 10^3/uL (0.2-0.9); Monocytes % 4.9 %; Neutrophils # 6.05 10^3/uL (1.8-7.7); Neutrophils % 58.8 %; Nucleated Red Blood Cells % 0 %; Platelet Count 304 10^3/cmm (130-400); Red Cell Distribution Width 12.9 % (12.1-15.1); White Blood Count 10.3 10^3/uL (4.0-10.0)
[2021-11-18 18:51] LABS: Anion Gap 17.2 (5-19); Blood Urea Nitrogen 9 mg/dL (6-20); Calcium 9.8 mg/dL (8.5-10.5); Carbon Dioxide 25 mmol/L (22-29); Chloride 103 mmol/L (98-107); Glomerular Filtration Rate 126.2 mL/min (90-130); Glucose 100 mg/dL (65-115); Osmolality Calculated 291 mOsm/kg (285-295); Potassium 4.2 mmol/L (3.5-5.1); Sodium 141 mmol/L (136-145)
--- NOTE | 2021-11-18 19:02 | PC.NURSE ---
report to RONDA Dietrich
[2021-11-18] MEDS: haloperidol inj 5 mg/mL INJ 1 mL 2 MG IVP (19:47)
[2021-11-18] MEDS: ketorolac 30 mg/mL INJ 15 MG IVP (19:47)
== END 2021-11-18 20:01 | disposition home or self-care (01) ==
PROVIDERS: Emergency Medicine; Family Medicine; Emergency Provider Emergency Medicine; PCP Family Medicine
DX: N93.9 Abnormal uterine and vaginal bleeding, unspecified (principal); F17.210 Nicotine dependence, cigarettes, uncomplicated
CPT/HCPCS: 80048; 81003; 84702; 85025; 96374; 96375; 99284; J1630; J1885

== ENCOUNTER → 2021-11-23 13:31 | Outpatient (BNVA) | payer MEDICAID, SELFPAY | PROVIDERS: PCP Family Medicine; Visit Provider Family Medicine | DX: N93.8 Other specified abnormal uterine and vaginal bleeding (principal); F32.9 Major depressive disorder, single episode, unspecified; G47.00 Insomnia, unspecified | CPT/HCPCS: 84439; 84443 ==

== ENCOUNTER 2021-12-11 21:27 | Inpatient (IN) | payer MEDICAID, SELFPAY ==
[2021-12-11 21:33] VITALS: BMI 38.2
[2021-12-11 21:37] VITALS: BP 137/81; PULSE 105; RESP 16; TEMP 37; O2SAT 98
--- NOTE | 2021-12-11 21:48 | ECG_ITS ---
[facility] Test Date: 2021-12-11 Pat Name: Komal Pryor Department: Room: [facility] Gender: Female Director Of Restaurant: : 2000 Requested By: Tavo Sanchez Order Number: [id number] Michaela MD: Nicolas Wayne M.D. Measurements Intervals [place] Rate: 94 P: 44 [place]: 119 QRS: 34 QRSD: 106 T: 30 QT: 358 QTc: 449 Interpretive Statements SINUS RHYTHM WITH SHORT [place] INTERVAL INTERPRETATION BASED ON A DEFAULT AGE OF 40 YEARS Compared to ECG 09/04/2020 14:26:37 Short [place] interval now present Sinus tachycardia no longer present T-wave abnormality no longer present Electronically Signed On 12-12-2021 7:25:49 CDT by Nicolas Wayne M.D. [id number]
--- NOTE | 2021-12-11 22:34 | ED.C_ITS ---
HPI - Psych General: Chief Complaint: Psychiatric Symptoms Stated Complaint: SI Time Seen by Provider: 12/11/21 21:39 Source: patient History of Present Illness: Ms. Pryor is a 21-year-old female who states that she took 500 mg of promethazine, and 2025 mg Benadryl at home 1 to 2 hours prior to arrival to the ER. She did this to harm her self. She is done this before. She has prior psychiatric and ICU admissions for suicide attempt and overdose. She is awake alert and talking. She denies any other recent illness including fever, cough, diarrhea or vomiting. MD complaint: suicidal ideation, feels depressed and other Onset (ago): hour(s) Duration: constant History of same: Yes Relieving factors: none Exacerbating factors: none Context: other Associated psychiatric symptoms: depression and suicidal ideation Associated symptoms: Reports suicidal ideation; Deny auditory hallucinations, visual hallucinations, delusions or homicidal ideation If self harm: admits thoughts of self harm, has acted on plan and intentional overdose Review of Systems Const: Denies: fever(s), chills or body aches Eyes: Denies: change in vision Card: Denies: chest pain or palpitations Resp: Denies: dyspnea, productive cough, non-productive cough or wheezing GI: Denies: abdominal pain, nausea, vomiting, diarrhea or hematochezia : Denies: difficulty voiding Skin/Breast: Denies: rash Neuro: Denies: headache(s), weakness in extremities, dizziness or confusion Psych: Reports: suicidal ideation; Denies: visual hallucinations, auditory hallucinations or homicidal ideation PFS ED PFSH: Medical History Cannabis abuse, uncomplicated Depression Generalized anxiety disorder Methamphetamine abuse Methamphetamine abuse in remission Nicotine dependence, cigarettes, uncomplicated No pertinent past medical history neghx: htn,dm,thyroid,dvt/pe Post-traumatic stress disorder, chronic Preeclampsia Psychiatric care Surgical History Delivery by section S/P section (~12/23/18) per Dr. Acuna at [facility] [place] S/P cholecystectomy S/P wisdom tooth extraction Family History Mother Thyroid condition Hypertension Grandmother Breast cancer paternal Father Diabetes Heart disease Sister Thyroid condition Social History Smoking and tobacco status: current every day smoker Alcohol intake: never Additional social history: Tobacco use: Current everyday smoker; 0.25pk daily Alcohol use: Daily Drug use: 1/4 gram smoked at hs; has med marijuana card Female Reproductive History: Date of last menstrual period: 11/04/21 Para: 2 Spontaneous abortions: Yes (1) Physical Exam Const: COMMON NORMALS: no acute distress GENERAL APPEARANCE: cooperative; not ill appearing and not frail appearing NUTRITIONAL APPEARANCE: obese HENMT: COMMON NORMALS: normocephalic, atraumatic and Normal external nose present HEAD & SCALP: normocephalic and atraumatic FACE & SINUS: normal facial exam NOSE: Normal external nose present Eye: COMMON NORMALS: Equal, round and reactive pupils present and EOMs intact bilaterally PUPIL: Yes Equal, round and reactive pupils present Neck/C-Spine: GENERAL: Yes trachea midline Chest: CHEST: Yes Symmetrical chest wall rise Resp: COMMON NORMALS: normal respiratory effort, No retractions, No use of accessory muscles and clear to auscultation bilaterally AUSCULTATION: clear to auscultation bilaterally Cardio: COMMON NORMALS: regular rate and regular rhythm RATE: regular rate RHYTHM: regular rhythm GI: COMMON NORMALS: Normal to inspection, nondistended, normoactive bowel sounds present Extremity: COMMON NORMALS: no pedal edema Neuro: NOVA COMA SCALE: document GCS findings [place] coma scale eye opening: Spontaneous [place] coma scale verbal response: Orientated [place] coma scale motor response: Obey commands [place] coma scale total score: 15 SENSORY EXAM: Yes extremities (intact) Psych: COMMON NORMALS: Normal thought process present and speech normal APPEARANCE: Yes grossly normal ACTIVITY/MOTOR BEHAVIOR: Yes psychomotor slowing SPEECH: Yes normal speech and Yes minimal MOOD & AFFECT: Yes depressed mood and Yes Flat affect present THOUGHT PROCESS: Normal thought process present THOUGHT CONTENT: Yes Suicidality present, No Homicidality present, No delusions and No Hallucination(s) present ATTENTION/CONCENTRATION: Yes attention grossly intact and Yes concentration bailey sly intact MEMORY/COGNITION: Yes memory grossly intact and Yes cognition grossly intact INSIGHT: Fair insight present (Psych) JUDGEMENT: Limited judgement present (Psych) Skin: COMMON NORMALS: no rashes or lesions noted GENERAL SKIN EXAM: no rashes or lesions noted Course Vital Signs: Vital signs: Vital Signs Temperature 98.6 F 12/11/21 21:37 Pulse Rate 78 12/11/21 23:24 Respiratory Rate 16 12/11/21 23:24 Blood Pressure 128/67 12/11/21 23:24 Pulse Oximetry 98 12/11/21 23:24 Oxygen Delivery Me thod 12/11/21 21:37 MDM - Psych Medical Decision Making The patient has not been overly tachycardic here, but has had a rate of around 100 at times. Poison control was consulted. They note peak times for both medications are somewhere around 3 to 4 hours postingestion, but anticholinergic effects can be delayed for several hours. She is not actively hallucinating spoke with psychiatry. Feeling is that patient should be monitored for several hours prior to coming to the neuropsychiatric unit given ingestion history. I agree. Patient will go to the ICU. Hospitalist will evaluate in the ER. Laboratory is essentially benign in this patient. No evidence of coingestions with acetaminophen, salicylates, alcohol, or other drugs save marijuana. Lab Data : 12/11/21 23:06 12/11/21 23:06 Laboratory Results WBC 8.7 10^3/uL (4.0-10.0) 12/11/21 23:06 RBC 4.27 10^6/uL (4.1-5.3) 12/11/21 23:06 Hgb 11.1 g/dL (11.5-15.3) L 12/11/21 23:06 Hct 36.2 % (37.0-47.0) L 12/11/21 23:06 MCV 84.8 fl (81-99) 12/11/21 23:06 MCH 26.0 pg (28.0-34.0) L 12/11/21 23:06 MCHC 30.7 g/dL (30.0-36.0) 12/11/21 23:06 RDW 13.4 % (12.1-15.1) 12/11/21 23:06 Plt Count 256 10^3/cmm (130-400) 12/11/21 23:06 MPV 10.8 fL (7.4-10.4) H 12/11/21 23:06 Neut % (Auto) 64.1 % 12/11/21 23:06 Lymph % (Auto) 28.6 % 12/11/21 23:06 [place] % (Auto) 5.5 % 12/11/21 23:06 Eos % (Auto) 0.9 % 12/11/21 23:06 Baso % (Auto) 0.6 % 12/11/21 23:06 Neut # (Auto) 5.59 10^3/uL (1.8-7.7) 12/11/21 23:06 Lymph # (Auto) 2.5 10^3/uL (0.8-4.8) 12/11/21 23:06 [place] # (Auto) 0.5 10^3/uL (0.2-0.9) 12/11/21 23:06 Eos # (Auto) 0.1 10^3/uL (0.0-0.8) 12/11/21 23:06 Baso # (Auto) 0.1 10^3/uL (0.0-0.1) 12/11/21 23:06 Nucleated RBC % (auto) 0 % 12/11/21 23:06 Nucleated RBCs # 0.0 /100WBC 12/11/21 23:06 Sodium 141 mmol/L (136-145) 12/11/21 23:06 Potassium 3.4 mmol/L (3.5-5.1) L 12/11/21 23:06 Chloride 107 mmol/L (98-107) 12/11/21 23:06 Carbon Dioxide 25 mmol/L (22-29) 12/11/21 23:06 Anion Gap 12.4 (5-19) 12/11/21 23:06 BUN 6 mg/dL (6-20) 12/11/21 23:06 Creatinine 0.6 mg/dL (0.5-0.9) 12/11/21 23:06 GFR Calculation 126.2 mL/min (90-130) 12/11/21 23:06 Glucose 79 mg/dL (65-115) 12/11/21 23:06 Calculated Osmolality 289 mOsm/kg (285-295) 12/11/21 23:06 Calcium 9.0 mg/dL (8.5-10.5) 12/11/21 23:06 Magnesium 2.1 mg/dL (1.7-2.3) 12/11/21 23:06 Total Bilirubin 0.2 mg/dL (0.15-1.2) 12/11/21 23:06 AST 13 U/L (0-32) 12/11/21 23:06 ALT 14 U/L (0-33) 12/11/21 23:06 Alkaline Phosphatase 103 U/L (35-105) 12/11/21 23:06 Total Protein 7.0 g/dL (6.6-8.7) 12/11/21 23:06 Albumin 4.1 g/dL (3.5-5.2) 12/11/21 23:06 Globulin 2.9 g/dL (1.3-4.6) 12/11/21 23:06 HCG, Qual Negative (Negative) 12/11/21 23:06 Urine Color Straw (Yellow) 12/11/21 23:06 Urine Appearance Sl hazy (CLEAR) 12/11/21 23:06 Urine pH 7 (5-7) 12/11/21 23:06 Ur Specific [place] 1.005 (1.005-1.030) 12/11/21 23:06 Urine Protein Neg (Negative) 12/11/21 23:06 Urine Glucose (UA) Norm (Normal) 12/11/21 23:06 Urine Ketones Negative (Negative) 12/11/21 23:06 Urine Blood 2+ (Negative) H 12/11/21 23:06 Urine Nitrate Negative (Negative) 12/11/21 23:06 Urine Bilirubin Neg (Negative) 12/11/21 23:06 Urine Urobilinogen Norm mg/dL (Negative) 12/11/21 23:06 Ur Leukocyte Esterase Negative (Negative) 12/11/21 23:06 Urine RBC 0-4 /hpf (0-2) H 12/11/21 23:06 Urine WBC 0-4 /hpf (0-5) H 12/11/21 23:06 Ur Squamous Epith Cells 5-10 /hpf (0-5) H 12/11/21 23:06 Amorphous Sediment Not Reportable 12/11/21 23:06 Urine Bacteria 2+ /hpf (NONE) H 12/11/21 23:06 Salicylates < 0.3 mg/dL (3-10) L 12/11/21 23:06 Urine Opiates Screen Negative ng/mL (Negative) 12/11/21 23:06 Acetaminophen < 5.0 ug/mL (10-30) L 12/11/21 23:06 Ur Barbiturates Screen Negative ng/mL (Negative) 12/11/21 23:06 Ur Phencyclidine Scrn Negative ng/mL (Negative) 12/11/21 23:06 Ur Amphetamines Screen Negative ng/mL (Negative) 12/11/21 23:06 U Benzodiazepines Scrn Negative ng/mL (Negative) 12/11/21 23:06 Urine Cocaine Screen Negative ng/mL (Negative) 12/11/21 23:06 U Marijuana (THC) Screen Positive ng/mL (Negative) H 12/11/21 23:06 Ethyl Alcohol < 10 mg/dL (0-10) 12/11/21 23:06 Discharge Plan Discharge Patient Disposition: Admitted As Inpatient Clinical Impression: Suicidal ideation, Intentional overdose Condition: Fair Prescriptions: No Action promethazine 25 mg tablet 25 mg PO DAILY PRN quetiapine [Seroquel] 25 mg tablet 25 mg PO BID PRN (Reason: severe anxiety and agitation) Qty: 60 0RF Rx Instructions: severe anxiety and agitation venlafaxine [Effexor XR] 75 mg capsule,extended release 24hr 75 mg PO DAILY Qty: 30 1RF quetiapine [Seroquel] 100 mg tablet 100 mg PO .HS PRN (Reason: sleep) Qty: 30 0RF Referrals: Daniel Acuna MD [Primary Care Provider] - Coding Level of Care Code ED Family Resource Management Professor for Chg 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
--- NOTE | 2021-12-11 23:03 | PC.NURSE ---
Contacted poison control. Spoke to Ayad. Recommends checking mag, cardiac monitoring, Peak time is 2-3 hours but could be delayed due to anticholinergic effect.
[2021-12-11 23:15] LABS: HCG Qualitative Urine. Negative (Negative)
[2021-12-11] MEDS: sodium chloride 0.9% 1,000 ML 999 ML IV (23:20)
[2021-12-11 23:22] LABS: Amphetamines Screen Urine Negative (Negative); Barbiturates Screen Urine Negative (Negative); Benzodiazepines Screen Urine Negative (Negative); Cocaine Screen Urine Negative (Negative); Opiate Screen Urine Negative (Negative); PCP Screen Urine Negative (Negative); THC Screen Urine Positive (Negative)
[2021-12-11 23:24] VITALS: BP 128/67; PULSE 78; RESP 16; O2SAT 98
[2021-12-11] MEDS: midazolam 1 mg/mL INJ 2 mL 2 MG IVP (23:25)
[2021-12-11 23:29] LABS: Add Urine Microscopic? YES; Bilirubin Urine Neg (Negative); Blood Urine 2+ (Negative); Glucose Urine UA Norm (Normal); Ketones Urine Negative (Negative); Leukocyte Esterase Urine Negative (Negative); Nitrate Urine Negative (Negative); Protein Urine Neg (Negative); Specific Gravity, Urine 1.005 (1.005-1.030); Urine Appearance SL Hazy (CLEAR); Urine Color Straw (Yellow); Urobilinogen Urine Norm (Negative); pH Urine 7 (5-7)
[2021-12-11 23:30] LABS: Bacteria Urine 2+ /hpf; RBC Urine 0-4 /hpf (0-2); WBC Urine 0-4 /hpf (0-5)
[2021-12-11 23:31] LABS: Add Urine Culture? Yes
[2021-12-11 23:33] LABS: Alanine Aminotransferase 14 U/L (0-33); Albumin Level 4.1 g/dL (3.5-5.2); Alkaline Phosphatase 103 U/L (35-105); Anion Gap 12.4 (5-19); Aspartate Amino Transferase 13 U/L (0-32); Blood Urea Nitrogen 6 mg/dL (6-20); Carbon Dioxide 25 mmol/L (22-29); Chloride 107 mmol/L (98-107); Globulin 2.9 g/dL (1.3-4.6); Glomerular Filtration Rate 126.2 mL/min (90-130); Glucose 79 mg/dL (65-115); Magnesium 2.1 mg/dL (1.7-2.3); Osmolality Calculated 289 mOsm/kg (285-295); Potassium 3.4 mmol/L (3.5-5.1); Sodium 141 mmol/L (136-145); Total Bilirubin 0.2 mg/dL (0.15-1.2)
[2021-12-11 23:34] LABS: Acetaminophen < 5.0 ug/mL (10-30); Alcohol Level < 10 mg/dL (0-10); Salicylate < 0.3 mg/dL (3-10)
[2021-12-11 23:39] LABS: Basophils # 0.1 10^3/uL (0.0-0.1); Basophils % 0.6 %; Eosinophils # 0.1 10^3/uL (0.0-0.8); Eosinophils % 0.9 %; Hematocrit 36.2 % (37.0-47.0); Hemoglobin 11.1 g/dL (11.5-15.3); Lymphocytes # 2.5 10^3/uL (0.8-4.8); Lymphocytes % 28.6 %; Mean Corpuscular HGB Conc 30.7 g/dL (30.0-36.0); Mean Corpuscular Volume 84.8 fl (81-99); Mean Platelet Volume 10.8 fL (7.4-10.4); Monocytes # 0.5 10^3/uL (0.2-0.9); Monocytes % 5.5 %; Neutrophils # 5.59 10^3/uL (1.8-7.7); Neutrophils % 64.1 %; Nucleated Red Blood Cells % 0 %; Platelet Count 256 10^3/cmm (130-400); Red Blood Count 4.27 10^6/uL (4.1-5.3); Red Cell Distribution Width 13.4 % (12.1-15.1); White Blood Count 8.7 10^3/uL (4.0-10.0)
[2021-12-12] VITALS (92 sets, daily range): BP systolic 111–145; BP diastolic 67–111; PULSE 41–86; RESP 0–28; TEMP 36.3–37.1; O2SAT 91–100; BMI 38.2
[2021-12-12] MEDS: sodium chloride 0.9% 1,000 ML 999 ML IV (00:26)
--- NOTE | 2021-12-12 01:00 | PM.HP ---
Providers/Chief Complaint Primary Care Provider: Daniel Acuna MD Chief Complaint: SI History of Present Illness Komal Pryor is a 21 year old female with a past medical history of generalized anxiety disorder, history of smoking, history of cannabis use, history of methamphetamine abuse in remission for the last month, who presents to [facility] due to suicide attempt. Patient tells me that her children have been taken away from her, she has a 3-month-old, that was taken away from her, that she is feeling down and depressed, so she took 5 25 mg Benadryl, she not sure how me promethazine she took maybe 2-3 promethazine 500 mg promethazine. She has a history of suicide attempt and overdose in the past. She also had has a history of self cutting behavior, she has superficial abrasions on her left wrist due to self cutting today. Hospitalist team was called for admission due to concerns for anticholinergic side effects, and ICU admission for monitoring after attempted overdose, suicide attempt, psychiatry has been consulted, will see in the morning. Currently she is alert oriented x3, sitting up in bed, no chest pain, no palpitations, no shortness of breath, no lightheadedness, no dizziness, no nausea, no vomiting, denies being , has a tubal ligation Review of Systems Eyes: Denies: change in vision Card: Denies: chest pain Resp: Denies: dyspnea GI: Denies: abdominal pain Neuro: Denies: headache(s), numbness in extremities, dizziness or confusion Medications/Allergies Home Medications Medication Instructions Recorded Confirmed Last Taken Type promethazine 25 mg tablet 25 mg PO DAILY PRN 12/07/21 12/07/21 Unknown History quetiapine 100 mg tablet (Seroquel) 100 mg PO .HS PRN sleep #30 tabs 12/07/21 12/07/21 Unknown Rx quetiapine 25 mg tablet (Seroquel) 25 mg PO BID PRN severe anxiety 12/07/21 12/07/21 Unknown Rx and agitation #60 tabs venlafaxine 75 mg capsule,extended 75 mg PO DAILY #30 caps 12/07/21 12/07/21 Unknown Rx release 24 hr (Effexor XR) Allergies Allergy/AdvReac Type Severity Reaction Status Date / Time latex Allergy ALGY-Rash Verified 12/07/21 13:17 PFSH Acute PFSH: Medical History Cannabis abuse, uncomplicated Depression Generalized anxiety disorder Methamphetamine abuse Methamphetamine abuse in remission Nicotine dependence, cigarettes, uncomplicated No pertinent past medical history neghx: htn,dm,thyroid,dvt/pe Post-traumatic stress disorder, chronic Preeclampsia Psychiatric care Surgical History Delivery by section S/P section (~12/23/18) [place] [facility] [place] S/P wisdom tooth extraction Family History Mother Thyroid condition Hypertension Grandmother Breast cancer paternal Father Diabetes Heart disease Sister Thyroid condition Social History Smoking and tobacco status: current every day smoker Alcohol intake: never Additional social history: Tobacco use: Current everyday smoker; 0.25pk daily Alcohol use: Daily Drug use: 1/4 gram smoked at hs; has med marijuana card Female Reproductive History: Date of last menstrual period: 11/04/21 Para: 2 Spontaneous abortions: Yes (1) Vitals/I&O/Wt Last Vital Signs Temp 98.6 F 12/11/21 21:37 Pulse 62 12/12/21 00:45 Resp 22 H 12/12/21 00:45 BP 128/81 12/12/21 00:45 Pulse Ox 98 12/11/21 23:24 O2 Del Method 12/11/21 21:37 12/11/21 12/11/21 12/12/21 14:59 22:59 06:59 Intake Total 1000 / 1000 Balance 1000 / 1000 Weight last 48 hrs Weight 104.326 kg Physical Exam Const: COMMON NORMALS: no acute distress and patient oriented x3 HENMT: COMMON NORMALS: normocephalic HEAD & SCALP: normocephalic Neck/C-Spine: COMMON NORMALS: no JVD Resp: COMMON NORMALS: normal respiratory effort, No retractions, No use of accessory muscles and clear to auscultation bilaterally AUSCULTATION: clear to auscultation bilaterally Cardio: COMMON NORMALS: no JVD, regular rate, regular rhythm, S1 normal heart sound present and S2 normal heart sound present RATE: regular rate RHYTHM: regular rhythm HEART SOUNDS: S1 normal heart sound present and S2 normal heart sound present GI: COMMON NORMALS: Normal to inspection, nondistended, normoactive bowel sounds present, Soft to palpation, non-tender, No hepatosplenomegaly present, no masses and no bruits PALPATION: Yes Soft to palpation and Yes No hepatosplenomegaly present Extremity: COMMON NORMALS: capillary refill normal, no calf tenderness and no pedal edema Neuro: COMMON NORMALS: patient oriented x3, CN's II-XII intact bilaterally, moves all extremities and no focal motor deficits Data : 12/11/21 23:06 12/11/21 23:06 A&P Assessment and plan (1) Suicidal ideation: Status: Acute (2) Intentional overdose: Status: Acute (3) Generalized anxiety disorder: Status: Acute Plan Intentional overdose -Benadryl, promethazine -Monitor for anticholinergic side effects -Did have some tachycardia in the emergency room, currently sinus rhythm, heart rates in the 60s, normotensive -Monitor in ICU -Telemetry monitoring, serial EKGs -Monitor electrolytes -Poison control has been contacted -Full code -SCDs for DVT prophylaxis -Suicide precautions -Psychiatry consulted Attestations Medical Necessity Statement*: Patient requires hospitalization, inpatient, greater than 2 midnights, for intentional overdose, suicidal ideation Coding Level of Care Code Acute Customs Compliance Specialist for Barb Chappell Diagnoses Suicidal ideation R45.851 Intentional overdose T50.902A Generalized anxiety disorder F41.1
[2021-12-12 01:28] LABS: Troponin(5th) Baseline 6 ng/L (0-10)
[2021-12-12] MEDS: acetaminophen 325 mg Tablet 650 MG PO (02:39)
[2021-12-12] MEDS: hyDROXYzine 25 mg Capsule PO (02:40)
[2021-12-12] MEDS: sodium chloride 0.9% 1,000 ML 50 ML IV (02:40)
--- NOTE | 2021-12-12 02:58 | ECG_ITS ---
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 Measurements Intervals [place] Rate: 66 P: 59 CA: 134 QRS: 66 QRSD: 106 T: 56 QT: 439 QTc: 460 Interpretive Statements SINUS RHYTHM WITH SINUS ARRHYTHMIA Compared to ECG 12/11/2021 21:48:39 Short CA interval no longer present Electronically Signed On 12-12-2021 7:29:22 CDT by Nicolas Wayne M.D. [id number]
--- NOTE | 2021-12-12 03:26 | PC.NURSE ---
I have spoken to Dr. Russell, and he is aware that a 96 hour hold has not been initiated on Ms. Pryor.
[2021-12-12 04:29] LABS: Basophils % 0.2 %; Eosinophils # 0.1 10^3/uL (0.0-0.8); Eosinophils % 1.2 %; Hematocrit 32.1 % (37.0-47.0); Hemoglobin 9.6 g/dL (11.5-15.3); Lymphocytes # 3.1 10^3/uL (0.8-4.8); Mean Corpuscular HGB Conc 29.9 g/dL (30.0-36.0); Mean Platelet Volume 10.9 fL (7.4-10.4); Monocytes # 0.5 10^3/uL (0.2-0.9); Monocytes % 5.7 %; Neutrophils # 5.35 10^3/uL (1.8-7.7); Neutrophils % 58.6 %; Nucleated Red Blood Cells % 0 %; Platelet Count 214 10^3/cmm (130-400); Red Blood Count 3.69 10^6/uL (4.1-5.3); Red Cell Distribution Width 13.4 % (12.1-15.1); White Blood Count 9.1 10^3/uL (4.0-10.0)
[2021-12-12 04:56] LABS: Alanine Aminotransferase 12 U/L (0-33); Albumin Level 3.3 g/dL (3.5-5.2); Alkaline Phosphatase 86 U/L (35-105); Anion Gap 12.8 (5-19); Aspartate Amino Transferase 10 U/L (0-32); Blood Urea Nitrogen 5 mg/dL (6-20); Calcium 8.1 mg/dL (8.5-10.5); Carbon Dioxide 25 mmol/L (22-29); Chloride 109 mmol/L (98-107); Glomerular Filtration Rate 126.2 mL/min (90-130); Glucose 86 mg/dL (65-115); Osmolality Calculated 293 mOsm/kg (285-295); Potassium 3.8 mmol/L (3.5-5.1); Sodium 143 mmol/L (136-145); Total Bilirubin 0.2 mg/dL (0.15-1.2); Total Protein 5.3 g/dL (6.6-8.7)
[2021-12-12 05:00] LABS: Magnesium 1.7 mg/dL (1.7-2.3)
[2021-12-12 05:06] LABS: Troponin 5 2HR Delta 0 ABS# (0-10)
[2021-12-12 05:09] LABS: Thyroid Stimulating Hormone 2.06 uIU/mL (0.27-4.20)
--- NOTE | 2021-12-12 06:10 | ECG_ITS ---
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 Measurements Intervals [place] Rate: 62 P: 57 MD: 141 QRS: 55 QRSD: 109 T: 51 QT: 428 QTc: 437 Interpretive Statements SINUS RHYTHM Compared to ECG 12/12/2021 03:03:49 Sinus arrhythmia no longer present Electronically Signed On 12-12-2021 7:29:27 CDT by Nicolas Wayne M.D. [id number]
--- NOTE | 2021-12-12 06:30 | PC.NURSE ---
constant observer remains at bedside. Pt pleasant and cooperative.
[2021-12-12 07:42] LABS: Troponin 5 6HR Delta 0 ng/L (0-12)
--- NOTE | 2021-12-12 08:04 | P.PN_ITS ---
Subjective Subjective: Komal reports she feels okay this morning. She admits to taking Benadryl, promethazine and cutting her left arm in an attempt to harm herself. She states she has never overdosed on any attempt to harm her self before. She has been cutting herself for years. Ingestion was 8 PM last night. Medications: Reviewed: Yes Vitals/I&O/Wt Last Vital Signs Temp 98.4 F 12/12/21 02:14 Pulse 67 12/12/21 06:30 Resp 22 H 12/12/21 06:30 BP 122/69 12/12/21 06:30 Pulse Ox 96 12/12/21 06:30 O2 Del Method 12/12/21 06:30 12/11/21 12/12/21 12/12/21 22:59 06:59 14:59 Intake Total 1999 Balance 1999 Weight last 48 hrs Weight 104.326 kg Physical Exam Narrative: General exam no distress Neck is supple no lymphadenopathy thyromegaly Cardiovascular regular rate and rhythm without murmur Lungs clear Abdomen is soft with positive bowel sounds Extremities no cyanosis clubbing or edema Neuro no focal deficits Data : 12/12/21 03:00 12/12/21 03:00 A&P Assessment and plan (1) Intentional overdose: Took this as a suicide attempt. She is currently medical stable medically stable and can transfer to neuropsychiatric unit when bed is available One-on-one 96-hour hold Psychiatric consultation Status: Acute (2) Suicide attempt: See above Status: Acute (3) Abrasion forearm: This is secondary to cutting. She reports this is a chronic issue. Status: Acute Attestations Medical Necessity Statement*: Needs continued hospitalization secondary to suicide attempt, overdose, self-harm behavior Coding Level of Care Code Acute Monogram Machine Operator for g Fwd Diagnoses Intentional overdose T50.902A Suicide attempt T14.91XA Abrasion forearm S50.819A
--- NOTE | 2021-12-12 13:05 | PC.CHAP ---
Pastoral Care Encounter/Spiritual Assessment Type of Contact [] Declined lumber straightened visit [] Patient/Family/Request visit [] Outpatient visit [] Follow-up visit [] Physician referral [] Code/Alert [x] Routine visit [] Staff referral [] Actively dying [] Patient sleeping [] Family support [] [] Out of room [] Palliative care [] [] Receiving care in room [] Pre-surgical visit [] Trauma [] Long length of stay [x] ICU visit [] Other: Relational/Emotional Strength [] Patient feels connected with others/family/visitors/staff [] Distress [] Loneliness/isolation [] Abandonment Spirituality of Patient [] Person of Marily [] Attends Faith of their Marily [] Believes in Prayer [] Reads Bible or Rastafarian materials [] There are Spiritual issues to be addressed Inspector Water Pollution Control Interventions [x] Prayer [] Active listening [] Non-anxious presence [] Spiritual/emotional support [] Crisis/trauma care [] Spiritual counseling [] Bereavement support [] Provided bereavement packet [] Provided Bible/devotional materials [] Provided toy/stuffed animal, coloring book to patient or family member [] Provided Communion [] Anointing/[place] [] Salvation [x] Completed spiritual assessment [] Other: Impact on Illness or Injury [] Angry [] Fearful [] Anxious [] Often cries [] Exhaustion [] Unable to work [] Unable to attend buddhism [] Unable to walk/stand [] Unable to read [] Unable to drive [] Unable to eat/drink [] Unable to sleep [] Unable to be with family [] Patient intubated [] Other: Summary Time spent with patient
--- NOTE | 2021-12-12 13:07 | PC.NURSE ---
Patient states she takes, multiple opioids and feels like she is, About to withdraw and freak the fuck out. Patient stated the last time she took pills was the . This nurse asked what pills were taken and patient stated she took three 1mg tablets of klonopin. This nurse then asked what opioids were taken and patient stated, didn't you people do a drug screen? don't you already know what I've taken? Patient resting in bed at this time, HR 62, O2 98 on RA, BP 124/86.
--- NOTE | 2021-12-12 14:53 | PC.NURSE ---
Patient very tearful and states she, just really wants some meds for anxiety or something.
--- NOTE | 2021-12-12 15:49 | PC.NURSE ---
Transferred to NPU 152-1. With floor staff. Belongings and chart with assistant front office manager staff.
--- NOTE | 2021-12-12 16:25 | PC.ADMIT ---
[email or web address] [facility] Admission Note: The patient,Komal Pryor,21 y/o, was given written information regarding hospital policies, unit procedures and contact persons. Patient's smoking status: current every day smoker. Vital Signs - 8 hr 12/12/21 08:40 12/12/21 08:45 12/12/21 08:50 Temperature 98.8 F Pulse Rate 54 L 50 L 69 Respiratory Rate 24 H 23 H 23 H Blood Pressure 111/74 111/74 111/74 Pulse Oximetry 97 97 100 Oxygen Delivery Method Room Air Room Air Room Air 12/12/21 08:55 12/12/21 09:00 12/12/21 09:05 Temperature Pulse Rate 70 51 L 53 L Respiratory Rate 18 22 H 21 H Blood Pressure 139/96 139/96 132/85 Pulse Oximetry 98 98 98 Oxygen Delivery Method Room Air Room Air Room Air 12/12/21 09:10 12/12/21 09:15 12/12/21 09:20 Temperature Pulse Rate 56 L 58 L 62 Respiratory Rate 19 H 22 H 25 H Blood Pressure 132/85 132/85 132/85 Pulse Oximetry 97 99 98 Oxygen Delivery Method Room Air Room Air Room Air 12/12/21 09:25 12/12/21 09:30 12/12/21 09:35 Temperature Pulse Rate 52 L 58 L 61 Respiratory Rate 21 H 18 25 H Blood Pressure 132/85 132/85 132/85 Pulse Oximetry 98 99 99 Oxygen Delivery Method Room Air Room Air Room Air 12/12/21 09:40 12/12/21 09:45 12/12/21 09:50 Temperature Pulse Rate 57 L 60 52 L Respiratory Rate 20 H 23 H 23 H Blood Pressure 132/85 132/85 132/85 Pulse Oximetry 98 97 97 Oxygen Delivery Method Room Air Room Air Room Air 12/12/21 09:55 12/12/21 10:00 12/12/21 10:05 Temperature Pulse Rate 59 L 54 L 55 L Respiratory Rate 21 H 24 H 20 H Blood Pressure 132/85 132/85 121/105 Pulse Oximetry 97 99 98 Oxygen Delivery Method Room Air Room Air Room Air 12/12/21 10:10 12/12/21 10:15 12/12/21 10:20 Temperature Pulse Rate 55 L 57 L 49 L Respiratory Rate 21 H 22 H 22 H Blood Pressure 121/105 121/105 121/105 Pulse Oximetry 98 99 99 Oxygen Delivery Method Room Air Room Air Room Air 12/12/21 10:25 12/12/21 10:30 12/12/21 10:35 Temperature Pulse Rate 58 L 45 L 53 L Respiratory Rate 22 H 21 H 23 H Blood Pressure 121/105 121/105 121/105 Pulse Oximetry 98 99 99 Oxygen Delivery Method Room Air Room Air Room Air 12/12/21 10:40 12/12/21 10:45 12/12/21 10:50 Temperature Pulse Rate 62 49 L 64 Respiratory Rate 22 H 22 H 25 H Blood Pressure 121/105 121/105 121/105 Pulse Oximetry 99 99 99 Oxygen Delivery Method Room Air Room Air Room Air 12/12/21 10:55 12/12/21 11:00 12/12/21 11:05 Temperature Pulse Rate 62 65 57 L Respiratory Rate 20 H 22 H 23 H Blood Pressure 121/105 121/105 121/91 Pulse Oximetry 99 98 98 Oxygen Delivery Method Room Air Room Air Room Air 12/12/21 11:10 12/12/21 11:15 12/12/21 11:20 Temperature Pulse Rate 59 L 58 L 51 L Respiratory Rate 24 H 23 H 23 H Blood Pressure 121/91 121/91 121/91 Pulse Oximetry 100 100 99 Oxygen Delivery Method Room Air Room Air Room Air 12/12/21 11:25 12/12/21 11:30 12/12/21 11:35 Temperature Pulse Rate 56 L 53 L 54 L Respiratory Rate 24 H 24 H 23 H Blood Pressure 121/91 121/91 121/91 Pulse Oximetry 99 99 99 Oxygen Delivery Method Room Air Room Air Room Air 12/12/21 11:40 12/12/21 11:45 12/12/21 11:50 Temperature Pulse Rate 49 L 58 L 49 L Respiratory Rate 22 H 24 H 24 H Blood Pressure 121/91 121/91 121/91 Pulse Oximetry 100 99 99 Oxygen Delivery Method Room Air Room Air Room Air 12/12/21 11:55 12/12/21 12:00 12/12/21 12:05 Temperature Pulse Rate 64 58 L 61 Respiratory Rate 28 H 22 H 7 L Blood Pressure 121/91 121/91 121/91 Pulse Oximetry 99 94 99 Oxygen Delivery Method Room Air Room Air Room Air 12/12/21 12:10 12/12/21 12:15 12/12/21 12:20 Temperature Pulse Rate 60 80 Respiratory Rate 6 L 21 H Blood Pressure 121/91 121/91 121/91 Pulse Oximetry 99 99 Oxygen Delivery Method Room Air Room Air 12/12/21 12:25 12/12/21 12:30 12/12/21 12:35 Temperature Pulse Rate 73 68 62 Respiratory Rate 15 17 9 L Blood Pressure 121/91 121/91 121/91 Pulse Oximetry 100 99 100 Oxygen Delivery Method Room Air Room Air Room Air 12/12/21 12:40 12/12/21 12:45 12/12/21 14:10 Temperature Pulse Rate 63 76 60 Respiratory Rate 18 10 L Blood Pressure 121/91 121/91 Pulse Oximetry 100 99 Oxygen Delivery Method Room Air Room Air 12/12/21 15:22 12/12/21 12:50 12/12/21 12:55 Temperature Pulse Rate 65 86 Respiratory Rate 0 L 19 H Blood Pressure 121/91 121/91 Pulse Oximetry 99 100 Oxygen Delivery Method Room Air Room Air Room Air 12/12/21 13:00 12/12/21 13:05 12/12/21 13:10 Temperature Pulse Rate 60 64 61 Respiratory Rate 18 17 9 L Blood Pressure 121/91 Pulse Oximetry 97 100 99 Oxygen Delivery Method Room Air Room Air Room Air 12/12/21 13:15 12/12/21 13:20 12/12/21 13:25 Temperature Pulse Rate 73 60 61 Respiratory Rate 15 17 13 Blood Pressure 124/86 124/86 Pulse Oximetry 100 Oxygen Delivery Method Room Air 12/12/21 13:30 12/12/21 13:35 12/12/21 13:40 Temperature Pulse Rate 75 53 L 51 L Respiratory Rate 23 H 9 L 11 L Blood Pressure 124/86 124/86 124/86 Pulse Oximetry Oxygen Delivery Method 12/12/21 13:45 12/12/21 13:50 12/12/21 13:55 Temperature Pulse Rate 69 55 L 52 L Respiratory Rate 22 H 7 L 19 H Blood Pressure 124/86 124/86 124/86 Pulse Oximetry Oxygen Delivery Method 12/12/21 14:00 12/12/21 14:05 12/12/21 14:10 Temperature Pulse Rate 64 55 L Respiratory Rate 17 17 Blood Pressure 124/86 124/86 124/86 Pulse Oximetry 98 Oxygen Delivery Method Room Air 12/12/21 14:15 12/12/21 14:20 12/12/21 14:25 Temperature Pulse Rate 50 L 52 L 65 Respiratory Rate 22 H 18 17 Blood Pressure 124/86 124/86 124/86 Pulse Oximetry 100 100 100 Oxygen Delivery Method Room Air Room Air Room Air 12/12/21 14:30 12/12/21 14:35 12/12/21 14:40 Temperature Pulse Rate 41 L 61 Respiratory Rate 15 20 H Blood Pressure 124/86 124/86 124/86 Pulse Oximetry 99 99 Oxygen Delivery Method Room Air Room Air 12/12/21 14:45 12/12/21 14:50 12/12/21 14:55 Temperature Pulse Rate 54 L 65 56 L Respiratory Rate 18 16 14 Blood Pressure 137/111 137/111 137/111 Pulse Oximetry 99 91 100 Oxygen Delivery Method Room Air Room Air Room Air 12/12/21 15:00 12/12/21 15:05 12/12/21 15:10 Temperature Pulse Rate 66 63 59 L Respiratory Rate 15 17 15 Blood Pressure 137/111 Pulse Oximetry 99 100 99 Oxygen Delivery Method Room Air Room Air Room Air 12/12/21 15:15 Temperature Pulse Rate 58 L Respiratory Rate 17 Blood Pressure Pulse Oximetry 99 Oxygen Delivery Method Room Air ADMITTED FROM ICU VIA WHEELCHAIR AND SECURITY. PT IS ON A 96 HOUR HOLD THAT ENDS 12/16/21@1540. PT STATES SHE IS HERE DUE TO OVERDOSING ON BENADRYL AND PHENERGAN. PT IS ALLERGIC TO LATEX AND TAKES NO HOME MEDICATIONS. PT REPORTS 4 SUICIDE ATTEMPTS IN HER LIFE. PT REPORTS HER HOBBY IS GETTING HIGH. REPORTS USE OF OPIODS AND THC. UDS + FOR THC. PT STATES SHE DOES NOT WANT TO DO INPATIENT DRUG TREATMENT DUE TO NOT LIKING PEOPLE TELLING HER WHAT TO DO. PT IS ANXIOUS UPON ADMISSION REQUESTING MEDICATIONS. WILL GIVE VISTARIL ONCE IN COMPUTER TO GIVE. PT DOES HAVE SELF INFLICTED LACERATIONS TO BILATERAL UPPER EXTREMITIES AND UPPER LEFT LEG. LEFT TOE FORMER, NO DRAINGAGE OR S/SX OF INFECTION NOTED. ORIENTATED TO UNIT. ALL QUESTIONS ANSWERED AND SUPPORT WAS VOICED.
[2021-12-12] MEDS: hyDROXYzine 25 mg Capsule 50 MG PO (16:52)
--- NOTE | 2021-12-12 16:53 | PC.NURSE ---
PRN MEDICATION PT WAS GIVEN VISTARIL 50 MG FOR ANXIETY. PT STATES SHE DID NOT GET ANYTHING FOR HER WITHDRAWS IN ICU AND REALLY REALLY NEED SOMETHING FOR MY NERVES. EDUCATION GIVEN THAT VISTARIL WOULD HELP WITH ANXIETY BUT IT IS NOT FOR WITHDRAWS. UDS WAS + FOR THC NOT OPIATES. PT STATED SHE KNEW BUT STILL NEEDED SOMETHING FOR WITHDRAWS. SUPPORT VOICED.
[2021-12-12] MEDS: OLANZapine 5 mg ODT PO (18:13)
[2021-12-12] MEDS: ferrous sulfate EC 325 mg Tablet PO (18:13)
--- NOTE | 2021-12-12 18:14 | PC.NURSE ---
PRN MEDICAL PHOTOGRAPHER Patient approached nurse's station and said the hydroxyzine she was given has not made her anxiety worse. She was very tearful. This RN administered olanzapine 5mg ODT and instructed patient to let us know if she did not have any relief with that medication.
[2021-12-13 06:00] VITALS: BP 110/74; PULSE 63; RESP 16; TEMP 36.4; O2SAT 97
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
[2021-12-13] MEDS: nicotine 2 mg Gum BUCCAL (09:25)
[2021-12-13] MEDS: ferrous sulfate EC 325 mg Tablet PO ×2 (09:25→17:57)
[2021-12-13] MEDS: hyDROXYzine 25 mg Capsule 50 MG PO (09:25)
[2021-12-13] MEDS: duloxetine 30 mg Capsule PO (12:19)
[2021-12-13 14:00] VITALS: BP 133/82; PULSE 18; RESP 18; TEMP 36.6; O2SAT 98
[2021-12-13] MEDS: acetaminophen 325 mg Tablet 650 MG PO (17:58)
[2021-12-13] MEDS: trazodone 50 mg Tablet PO ×2 (21:26→23:54)
[2021-12-13 21:57] VITALS: BP 121/82; PULSE 68; RESP 16; TEMP 36.4; O2SAT 97
[2021-12-13] MEDS: calcium carbonate 500 mg Chew Tablet 1000 MG PO (23:09)
[2021-12-14 06:00] VITALS: BP 114/75; PULSE 70; RESP 18; TEMP 36.7; O2SAT 95
[2021-12-14] MEDS: ferrous sulfate EC 325 mg Tablet PO ×2 (09:15→17:47)
[2021-12-14] MEDS: duloxetine 30 mg Capsule PO (09:16)
[2021-12-14 14:00] VITALS: BP 119/76; PULSE 63; RESP 18; TEMP 36.8; O2SAT 97
--- NOTE | 2021-12-14 14:04 | W.PM.NPUPNS ---
Subjective NPU Subjective: Komal is a 21-year-old white female admitted with suicidal ideation with a history of generalized anxiety disorder methamphetamine abuse PTSD and opiate dependence. She had reported some continued opiate withdrawal symptoms that she reported not having used opiates for several days after using OxyContin approximately under 120 mg just prior to her admission. She had reported that she had some diarrhea and loose stools and reported feeling anxious and nervous. She had reported feeling more hopeful about her treatment and reported that she continues to have PTSD related symptoms including nightmares and reported frequent flashbacks regarding her trauma. She also reports depressed mood but reports feeling more optimistic about getting help. Patient had reported motivation to stop the use of opiates and had reported no prior history to use of methadone or Suboxone. Mental Status Exam MSE Comments: The patient is a casually dressed white female who was pleasant and cooperative on interview. she was alert and oriented to person place time and situation. her hygiene was good. her speech was regular in regards to rate rhythm and prosody. Her mood was described as better. Her affect was mood incongruent and still constricted. Her thought process was linear logical and goal-directed. She she did not appear to be responding internal stimuli. there was no evidence of any delusional thinking. She had endorsed passive suicidal thoughts and continued thoughts of cutting herself, but reported that she did not have any plan to hurt her self in the moment. Her memory was intact to recent and remote events. Her insight appeared fair. Her judgment was poor and her impulse control was poor. Vitals/I&O/Wt Last Vital Signs Temp 98.1 F 12/14/21 06:00 Pulse 70 12/14/21 06:00 Resp 18 12/14/21 06:00 BP 114/75 12/14/21 06:00 Pulse Ox 95 12/14/21 06:00 O2 Del Method 12/14/21 06:00 Weight last 48 hrs Weight 104.326 kg Data NPU : 12/12/21 03:00 12/12/21 03:00 Micro: Microbiology 12/11/21 23:06 Urine Culture - Final Urine,Clean Catch Strep agalactiae - (group b) Microbiology 12/11/21 23:06 Urine,Clean Catch Urine Culture - Final Strep agalactiae - (group b) A&P Assessment and plan (1) Major depressive disorder: Status: Acute (2) Post-traumatic stress disorder, chronic: Status: Acute (3) Methamphetamine abuse: Status: Acute (4) Opioid dependence: Status: Acute (5) Generalized anxiety disorder: Status: Acute Plan This is a 21-year-old white female with a history of opiate dependence major depressive disorder and PTSD currently admitted due to an overdose with suicidal ideation. 1. Continue Cymbalta 30mg daily to target depression and seroquel as prescribed. 2. Consider dual diagnosis treatment, referral for substance abuse treatment 3. TO-15 observations, check for safety 4. Encourage individual, group and milieu therapy Involuntary Hold Information 96 Hour Hold: 96 Hour Involuntary Admission: Yes 96 Hour Hold Ending Date: 12/16/21 96 Hour Hold Ending Time: 15:40 Attestations NPU Medical Necessity Statement*: Inpatient hospitalization is medically necessary and the clinically appropriate intervention at this time. We will monitor medications and make changes as indicated. Patient likely length of stay is three to five days. 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
[2021-12-14] MEDS: ondansetron 4 MG Tablet PO (17:53)
[2021-12-14] MEDS: ibuprofen 600 mg Tablet PO (20:28)
[2021-12-14] MEDS: trazodone 50 mg Tablet PO (20:43)
[2021-12-14] MEDS: hyDROXYzine 25 mg Capsule 50 MG PO (20:43)
[2021-12-14 21:17] VITALS: BP 128/78; PULSE 73; RESP 16; TEMP 36.9; O2SAT 96
[2021-12-14] MEDS: loperamide 2 mg Capsule PO (21:31)
[2021-12-14] MEDS: OLANZapine 5 mg ODT PO (22:36)
[2021-12-15 06:00] VITALS: BP 106/69; PULSE 65; RESP 17; TEMP 36.4; O2SAT 99
[2021-12-15] MEDS: duloxetine 30 mg Capsule PO (09:31)
[2021-12-15] MEDS: ferrous sulfate EC 325 mg Tablet PO (09:31)
--- NOTE | 2021-12-15 11:06 | PC.NURSE ---
Nurse Note Patient talking to another patient and laughing in the dayroom. We moved to her room for the assessment. Patient is smiling and appears in a much better mood than when I observed her last. She denied any homicidal or suicidal ideations. Also denied any auditory or visual hallucinations. Patient stated she slept good, but that her roommate woke her up dreaming once. Stated no pain at this time. We talked extensively about how far she's come and plans to finish college when she is released.
[2021-12-15] MEDS: buprenorphine-naloxone 4-1 mg Film 2 EACH SUBLINGUAL (11:11)
[2021-12-15] MEDS: nicotine 2 mg Gum BUCCAL (12:20)
[2021-12-15] MEDS: ondansetron 4 MG Tablet PO (12:38)
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
[2021-12-15 14:47] VITALS: BP 106/69; PULSE 65; RESP 17; TEMP 36.4; O2SAT 99
== END 2021-12-15 16:21 | disposition home or self-care (01) | DRG 881 ==
LOC: ER 12-12 01:28 → ICU 12-12 06:31 → NP 12-13 03:25 → ICU 12-13 06:58
PROVIDERS: Admitting Provider Family Medicine; Emergency Provider Emergency Medicine; PCP Family Medicine; Visit Provider Psychiatry & Neurology Psychiatry
DX: F32.9 Major depressive disorder, single episode, unspecified (principal); R45.851 Suicidal ideations; F11.23 Opioid dependence with withdrawal; T43.3X2A Poisoning by phenothiazine antipsychotics and neuroleptics, intentional self-harm, initial encounter; R19.7 Diarrhea, unspecified; R00.0 Tachycardia, unspecified; F43.10 Post-traumatic stress disorder, unspecified; F41.1 Generalized anxiety disorder; F12.90 Cannabis use, unspecified, uncomplicated; F15.11 Other stimulant abuse, in remission; F17.210 Nicotine dependence, cigarettes, uncomplicated; S50.812A Abrasion of left forearm, initial encounter; X78.9XXA Intentional self-harm by unspecified sharp object, initial encounter; Z91.52 Personal history of nonsuicidal self-harm; Z62.810 Personal history of physical and sexual abuse in childhood; Z91.410 Personal history of adult physical and sexual abuse; Z91.51 Personal history of suicidal behavior; Z98.51 Tubal ligation status; Z65.3 Problems related to other legal circumstances
CPT/HCPCS: 36415; 80053; 80306; 80307; 81001; 81025; 83735; 84100; 84443; 84484; 85025; 87086; 93005; 96361; 96374; 97150; 97165; 99285; J0573; J2250; J7030; Q0162

== ENCOUNTER → 2021-12-16 09:05 | Outpatient (BNVA) | payer OTHER, SELFPAY | PROVIDERS: PCP Family Medicine; Visit Provider Nurse Practitioner Psychiatric/Mental Health | DX: Z79.899 Other long term (current) drug therapy (principal) | CPT/HCPCS: 80307 ==

== ENCOUNTER → 2021-12-22 13:34 | Outpatient (BNVA) | payer OTHER, SELFPAY | PROVIDERS: PCP Family Medicine; Visit Provider Nurse Practitioner Psychiatric/Mental Health | DX: Z79.899 Other long term (current) drug therapy (principal); Z03.89 Encounter for observation for other suspected diseases and conditions ruled out; F43.12 Post-traumatic stress disorder, chronic | CPT/HCPCS: 80306; 80307; 81001; 87086 ==

== ENCOUNTER → 2021-12-29 14:46 | Outpatient (BNVA) | payer OTHER, SELFPAY | PROVIDERS: PCP Family Medicine; Visit Provider Nurse Practitioner Psychiatric/Mental Health | DX: Z79.899 Other long term (current) drug therapy (principal); F43.12 Post-traumatic stress disorder, chronic; F11.23 Opioid dependence with withdrawal; F32.1 Major depressive disorder, single episode, moderate; F15.11 Other stimulant abuse, in remission; F12.10 Cannabis abuse, uncomplicated; F17.210 Nicotine dependence, cigarettes, uncomplicated | CPT/HCPCS: 80306; 80307 ==

== ENCOUNTER → 2022-01-05 14:34 | Outpatient (BNVA) | payer OTHER, SELFPAY | PROVIDERS: PCP Family Medicine; Visit Provider Nurse Practitioner Psychiatric/Mental Health | DX: Z79.899 Other long term (current) drug therapy (principal); F43.12 Post-traumatic stress disorder, chronic; F11.23 Opioid dependence with withdrawal; F32.1 Major depressive disorder, single episode, moderate; F15.11 Other stimulant abuse, in remission; F12.10 Cannabis abuse, uncomplicated; F17.210 Nicotine dependence, cigarettes, uncomplicated | CPT/HCPCS: 80307 ==

== ENCOUNTER → 2022-01-12 15:06 | Outpatient (BNVA) | payer OTHER, SELFPAY | PROVIDERS: PCP Family Medicine; Visit Provider Nurse Practitioner Psychiatric/Mental Health | DX: Z79.899 Other long term (current) drug therapy (principal); F11.23 Opioid dependence with withdrawal; F12.10 Cannabis abuse, uncomplicated; F15.11 Other stimulant abuse, in remission; F43.12 Post-traumatic stress disorder, chronic; F32.1 Major depressive disorder, single episode, moderate; F17.210 Nicotine dependence, cigarettes, uncomplicated | CPT/HCPCS: 80307 ==

== ENCOUNTER → 2022-01-19 10:28 | Outpatient (BNVA) | payer OTHER, SELFPAY | PROVIDERS: PCP Family Medicine; Visit Provider Nurse Practitioner Psychiatric/Mental Health | DX: Z79.899 Other long term (current) drug therapy (principal); F11.23 Opioid dependence with withdrawal; F43.12 Post-traumatic stress disorder, chronic; F32.1 Major depressive disorder, single episode, moderate; F15.11 Other stimulant abuse, in remission; F12.10 Cannabis abuse, uncomplicated; F17.210 Nicotine dependence, cigarettes, uncomplicated | CPT/HCPCS: 80307 ==

== ENCOUNTER → 2022-02-02 14:24 | Outpatient (BNVA) | payer OTHER, SELFPAY | PROVIDERS: PCP Family Medicine; Visit Provider Nurse Practitioner Psychiatric/Mental Health | DX: Z79.899 Other long term (current) drug therapy (principal); F11.23 Opioid dependence with withdrawal; F15.11 Other stimulant abuse, in remission; F43.12 Post-traumatic stress disorder, chronic; F32.1 Major depressive disorder, single episode, moderate; F12.10 Cannabis abuse, uncomplicated; F17.210 Nicotine dependence, cigarettes, uncomplicated | CPT/HCPCS: 80307 ==

== ENCOUNTER → 2022-02-08 14:35 | Outpatient (BNVA) | payer OTHER, SELFPAY | PROVIDERS: PCP Family Medicine; Visit Provider Nurse Practitioner Psychiatric/Mental Health | DX: Z79.899 Other long term (current) drug therapy (principal); F43.12 Post-traumatic stress disorder, chronic; F11.23 Opioid dependence with withdrawal; F32.1 Major depressive disorder, single episode, moderate; F15.11 Other stimulant abuse, in remission; F12.10 Cannabis abuse, uncomplicated; F17.210 Nicotine dependence, cigarettes, uncomplicated | CPT/HCPCS: 80306; 80307 ==

== ENCOUNTER → 2022-02-15 15:33 | Outpatient (BNVA) | payer MEDICAID, SELFPAY | PROVIDERS: PCP Family Medicine; Visit Provider Nurse Practitioner Psychiatric/Mental Health | DX: F11.23 Opioid dependence with withdrawal (principal); F15.11 Other stimulant abuse, in remission; Z79.899 Other long term (current) drug therapy; F43.12 Post-traumatic stress disorder, chronic; F32.1 Major depressive disorder, single episode, moderate; F12.10 Cannabis abuse, uncomplicated; F17.210 Nicotine dependence, cigarettes, uncomplicated | CPT/HCPCS: 80306; 80307 ==

== ENCOUNTER 2022-03-10 20:04 | Emergency (ER) | payer MEDICAID, SELFPAY ==
[2022-03-10] VITALS (33 sets, daily range): BP systolic 80–144; BP diastolic 29–116; PULSE 90–110; RESP 10–58; O2SAT 97–100; BMI 41.1
--- NOTE | 2022-03-10 20:11 | CTR_ITS ---
PROCEDURE INFORMATION: Exam: CT Head Without Contrast Exam date and time: 03/10/2022 9:51 PM Age: 22 years old Clinical indication: Altered mental status/memory loss; Additional info: Post code TECHNIQUE: Imaging protocol: Computed tomography of the head without contrast. Radiation optimization: All CT scans at this facility use at least one of these dose optimization techniques: automated exposure control; mA and/or kV adjustment per patient size (includes targeted exams where dose is matched to clinical indication); or iterative reconstruction. COMPARISON: CT head wo con* [id number] 03/22/2020 9:14 PM RADIATION DOSE METRICS: Total DLP (mGy-cm): 1087.28 FINDINGS: Brain: Normal. No hemorrhage. Unremarkable white matter. No mass effect. Cerebral ventricles: No ventriculomegaly. Paranasal sinuses: Visualized sinuses are unremarkable. No fluid levels. Mastoid air cells: Visualized mastoid air cells are well aerated. Bones/joints: Unremarkable. No acute fracture. Soft tissues: Unremarkable. CT/CT head wo con* [id number] IMPRESSION: No acute intracranial abnormality.
[2022-03-10 20:23] LABS: Hematocrit 42.1 % (37.0-47.0); Hemoglobin 13.1 g/dL (11.5-15.3); Mean Corpuscular HGB Conc 31.1 g/dL (30.0-36.0); Mean Corpuscular Hemoglobin 26.1 pg (28.0-34.0); Mean Platelet Volume 10.5 fL (7.4-10.4); Platelet Count 435 10^3/cmm (130-400); Red Blood Count 5.01 10^6/uL (4.1-5.3)
[2022-03-10] MEDS: LORazepam 2 mg/mL INJ 1 mL IVP (20:23)
--- NOTE | 2022-03-10 20:23 | ECG_ITS ---
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 Measurements Intervals Mclean Rate: 92 P: 70 MS: 108 QRS: 66 QRSD: 105 T: 110 QT: 386 QTc: 479 Interpretive Statements SINUS RHYTHM WITH MARKED SINUS ARRHYTHMIA WITH SHORT MS INTERVAL ST DEVIATION AND MODERATE T-WAVE ABNORMALITY, CONSIDER ANTERIOR ISCHEMIA [-0.1+ mV T-WAVE IN V3/V4] Compared to ECG 12/12/2021 06:10:55 Short MS interval now present T-wave abnormality now present Possible ischemia now present Electronically Signed On 03-11-2022 11:05:59 [employer] by Dani Palmer M.D. [email or web address] centerSmarTotsc[facility].Beg[place]/store/[id number]
--- NOTE | 2022-03-10 20:25 | W.ED.OVERDOS ---
Documented by User: Celestino Herrera DO 03/12/22 07:07 HPI - Overdose General: Source: EMS Mode of arrival: EMS Limitations: other History of Present Illness: 22-year-old female presents emergency room via EMS. She was found unresponsive in the field apneic and pulseless ACLS protocols were started. She was given 2 epi,, 2 bicarb and Narcan she was intubated with 20 of etomidate and 5 of Versed. Intubation 8.5 ET tube 26 cm at the lip. She did eventually achieved ROSC on arrival here she is on no sedation shortly after arrival she had some posturing like seizing. She has a known history of being on Suboxone. No family available to give any further history. Called and talked to the field human resources manager for [facility]. They report getting a call at approximately 1906 and achieved ROSC at 1923 or 1925. Estimated downtime is getting me just short of 20 minutes however patient was found by family and was nonresponsive and reported to be apneic and pulseless do not know how long prior to when the call came in that she was down there is no information on the last known well time. The patient had moved here to have hours her mother called to talk to her mother her mother reports that she was normal yesterday she was standing talking to her roommate and she passed out shortly after that they called EMS her mother thinks it was around 7:00. complaint: intentional overdose Onset (ago): minute(s) (Estimated downtime 25 to 30 minutes.) Treatments Prior to Arrival: narcan, IV fluids and other medications (Epinephrine and bicarb) Review of Systems General: Reports: ROS unobtainable due to endotracheal tube PFS ED PFSH: Medical History Cannabis abuse, uncomplicated Depression Generalized anxiety disorder Major depressive disorder Methamphetamine abuse in remission Nicotine dependence, cigarettes, uncomplicated No pertinent past medical history neghx: htn,dm,thyroid,dvt/pe Opioid dependence Post-traumatic stress disorder, chronic Preeclampsia Psychiatric care Surgical History Delivery by section S/P section (~12/23/18) per Dr. Acuna at [facility] S/P cholecystectomy S/P wisdom tooth extraction Family History Mother Thyroid condition Hypertension Grandmother Breast cancer paternal Father Diabetes Heart disease Sister Thyroid condition Social History Smoking and tobacco status: current every day smoker Alcohol intake: never Additional social history: Tobacco use: Current everyday smoker; 0.25pk daily Alcohol use: Daily Drug use: 1/4 gram smoked at hs; has med marijuana card Female Reproductive History: Date of last menstrual period: 12/12/21 Para: 2 Spontaneous abortions: Yes (1) Physical Exam HENMT: COMMON NORMALS: normocephalic and atraumatic HEAD & SCALP: normocephalic and atraumatic Eye: COMMON NORMALS: Equal, round and reactive pupils present, conjunctivae normal and no scleral icterus CONJUNCTIVA: Yes conjunctivae normal PUPIL: Yes Equal, round and reactive pupils present Neck/C-Spine: COMMON NORMALS: full ROM, no lymphadenopathy, supple and no JVD Resp: COMMON NORMALS: clear to auscultation bilaterally AUSCULTATION: clear to auscultation bilaterally Cardio: COMMON NORMALS: no JVD, regular rate, regular rhythm and No murmurs present (Cardio) RATE: regular rate RHYTHM: regular rhythm GI: COMMON NORMALS: Soft to palpation and No hepatosplenomegaly present AUSCULTATION: Yes normoactive bowel sounds PALPATION: Yes Soft to palpation, No Tenderness to palpation present (GI), No Guarding due to palpation present (GI) and Yes No hepatosplenomegaly present Extremity: COMMON NORMALS: normal to inspection, capillary refill normal, no clubbing, cyanosis or edema, no calf tenderness and no pedal edema Skin: COMMON NORMALS: no rashes or lesions noted GENERAL SKIN EXAM: no rashes or lesions noted Course Vital Signs: Vital signs: Vital Signs Pulse Rate 109 H 03/11/22 01:05 Respiratory Rate 12 03/11/22 01:05 Blood Pressure 109/82 03/11/22 01:05 Pulse Oximetry 98 03/11/22 01:05 Oxygen Delivery Me thod 03/10/22 20:05 Fraction of Inspir ed Oxygen 30 03/11/22 00:41 MDM - Overdose Medical Decision Making Initially upon arrival patient is intubated. She is obviously having failure of seizing as well she was loaded with Keppra was also given several doses of Ativan. Wheeze then changed to Versed drip and gave push dose Versed despite that she continued to appear to be seizing she was transitioned to propofol which did seem to and any signs of seizure. CT of the head was read by V read as negative. Patient was noted to have bilateral upgoing Babinski's. Given her ongoing seizures and need for monitoring we will transfer patient to [facility] in [place]. We do not have neurology coverage available this weekend at the hospital. Discussed with the family. I suspect she may have overdosed. They tell me she has not been depressed or upset recently she has had some psych history in the past. EMS had given her Narcan although when I talk to the tumblers supervisor who is on the scene they did not feel she had a significant response. She is on naltrexone she was actually here in the hospital yesterday but then left without being seen because she had started to feel better and thought that the side effects of the naltrexone was what was causing her discomfort. Prior to that she been on Suboxone she is no longer been on. Medical Records I reviewed the patient's medical records. Lab Data I reviewed the patient's lab results. 03/10/22 20:14 03/10/22 20:[address] 03/10/22 20:11 IMPRESSION: No acute intracranial abnormality. Chest X-Ray 03/10/22 20:45 IMPRESSION: 1. Endotracheal tube tip seen in place 3.9 cm above the margie. 2. Enteric tube tip below the diaphragm extending inferiorly off the field of view. Laboratory Results WBC 39.2 10^3/uL (4.0-10.0) H* 03/10/22 20:14 RBC 5.01 10^6/uL (4.1-5.3) 03/10/22 20:14 Hgb 13.1 g/dL (11.5-15.3) 03/10/22 20:14 Hct 42.1 % (37.0-47.0) 03/10/22 20:14 MCV 84.0 fl (81-99) 03/10/22 20:14 MCH 26.1 pg (28.0-34.0) L 03/10/22 20:14 MCHC 31.1 g/dL (30.0-36.0) 03/10/22 20:14 RDW 18.0 % (12.1-15.1) H 03/10/22 20:14 Plt Count 435 10^3/cmm (130-400) H 03/10/22 20:14 MPV 10.5 fL (7.4-10.4) H 03/10/22 20:14 Lymph % (Auto) Not Reportable 03/10/22 20:14 [place] % (Auto) Not Reportable 03/10/22 20:14 Lymph # (Auto) Not Reportable 03/10/22 20:14 [place] # (Auto) Not Reportable 03/10/22 20:14 Total Counted 100 (0-100) 03/10/22 20:14 Atypical Lymphs % 0.0 % (0-5) 03/10/22 20:14 Absolute Neutrophils 29.4 10^3/cmm (1.4-6.5) H 03/10/22 20:14 Segmented Neutrophils 48 % 03/10/22 20:14 Abs Segm Neuts (Man) 18.8 10/cmm (1.6-7.1) H 03/10/22 20:14 Band Neutrophils 27.0 % 03/10/22 20:14 Abs Band Neuts (Man) 10.6 10^3/cmm (0.0-1.2) H 03/10/22 20:14 Absolute Lymphocytes 5.1 10^3/cmm (1.2-3.4) H 03/10/22 20:14 Lymphocytes (Manual) 13 % 03/10/22 20:14 Monocytes (Manual) 11.0 % 03/10/22 20:14 Absolute Monocytes 4.3 10^3/cmm (0.1-0.6) H 03/10/22 20:14 Eosinophils (Manual) 1 % 03/10/22 20:14 Absolute Eosinophils 0.3 10^3/cmm (0.0-0.7) 03/10/22 20:14 Basophils (Manual) 0.0 % 03/10/22 20:14 Absolute Basophils 0.0 10^3/cmm (0.0-0.2) 03/10/22 20:14 Toxic Granulation 1+ H 03/10/22 20:14 Toxic Vacuolation 2+ H 03/10/22 20:14 Platelet Estimate Increased (Normal) H 03/10/22 20:14 Specimen Type Arterial 03/10/22 20:24 Sample Site Radial, left 03/10/22 20:24 ABG pH 7.33 (7.35-7.45) L 03/10/22 20:24 ABG pCO2 27.9 mmHg (35-45) L 03/10/22 20: ABG pO2 438.0 mmHg (80.0-100.0) H 03/10/22 20:24 ABG HCO3 14.6 mmol/L (22-26) L 03/10/22 20: ABG O2 Saturation > 100.0 03/10/22 20: ABG Base Excess -9.9 mmol/L (-2.0-2.0) L 03/10/22 20:24 Jacek Test Pos 03/10/22 20:24 A-a O2 Gradient 30.1 mmHg (5-10) H 03/10/22 20:24 Hematocrit 39.3 % (37-47) 03/10/22 20: Hgb O2 Saturation 99.1 % (95-100) 03/10/22 20: Carboxyhemoglobin 0.9 %THgb (0.4-20.1) 03/10/22 20: Methemoglobin 0.5 % (0.4-1.5) 03/10/22 20:24 Total Hemoglobin 12.8 g/dL (12-16) 03/10/22 20:24 Sodium 140.0 mmol/L (131-143) 03/10/22 20:24 Potassium 3.6 mmol/L (3.5-5.0) 03/10/22 20:24 Glucose 313.0 mg/dL (70-115) H 03/10/22 20:24 Ionized Calcium 1.1 mmol/L (1.1-1.4) 03/10/22 20:24 O2 Delivery Device Vent 03/10/22 20:24 FiO2 100.0 % 03/10/22 20:24 Tidal Volume 0.45 03/10/22 20:24 PEEP 8.0 cmH20 03/10/22 20:24 Chief Medical Officer ID Leo 03/10/22 20:24 Sodium 138 mmol/L (136-145) 03/10/22 20:14 Potassium 3.7 mmol/L (3.5-5.1) 03/10/22 20:14 Chloride 95 mmol/L (98-107) L 03/10/22 20:14 Carbon Dioxide 12 mmol/L (22-29) L 03/10/22 20:14 Anion Gap 34.7 (5-19) H 03/10/22 20:14 BUN 8 mg/dL (6-20) 03/10/22 20:14 Creatinine 1.1 mg/dL (0.5-0.9) H 03/10/22 20:14 GFR Calculation 62.1 mL/min (90-130) L 03/10/22 20:14 Glucose 331 mg/dL (65-115) H 03/10/22 20:14 Calculated Osmolality 297 mOsm/kg (285-295) H 03/10/22 20:14 Lactic Acid 13.7 mmol/L (0.5-2.2) H* 03/10/22 20:14 Lactic Acid (Sepsis) 6.5 mmol/L (0.5-2.2) H* 03/10/22 22:40 Calcium 9.3 mg/dL (8.5-10.5) 03/10/22 20:14 Total Bilirubin 0.5 mg/dL (0.15-1.2) 03/10/22 20:14 AST 450 U/L (0-32) H 03/10/22 20:14 ALT 198 U/L (0-33) H 03/10/22 20:14 Alkaline Phosphatase 147 U/L (35-105) H 03/10/22 20:14 Creatine Kinase 293 U/L (26-192) H 03/10/22 20:14 Troponin T Baseline 242 ng/L (0-10) H* 03/10/22 20:14 Troponin T 120 Minute 387.4 ng/L (0-10) H 03/10/22 22:14 Delta Troponin T 145.4 ABS# (0-10) H* 03/10/22 22:14 Total Protein 7.0 g/dL (6.6-8.7) 03/10/22 20:14 Albumin 3.8 g/dL (3.5-5.2) 03/10/22 20:14 Globulin 3.2 g/dL (1.3-4.6) 03/10/22 20:14 HCG, Qual Negative (Negative) 03/10/22 20:14 Urine Color Yellow (Yellow) 03/10/22 21:00 Urine Appearance Sl hazy (CLEAR) A 03/10/22 21:00 Urine pH 5 (5-7) 03/10/22 21:00 Ur Specific [place] 1.025 (1.005-1.030) 03/10/22 21:00 Urine Protein 3+ (Negative) H 03/10/22 21:00 Urine Glucose (UA) Trace (Normal) H 03/10/22 21:00 Urine Ketones 1+ (Negative) H 03/10/22 21:00 Urine Blood 3+ (Negative) H 03/10/22 21:00 Urine Nitrate Negative (Negative) 03/10/22 21:00 Urine Bilirubin Neg (Negative) 03/10/22 21:00 Urine Urobilinogen Neg mg/dL (Negative) 03/10/22 21:00 Ur Leukocyte Esterase Negative (Negative) 03/10/22 21:00 Urine RBC 5-10 /hpf (0-2) H 03/10/22 21:00 Urine WBC 15-25 /hpf (0-5) H 03/10/22 21:00 Ur Squamous Epith Cells 0-4 /hpf (0-5) H 03/10/22 21:00 Ur Renal Epithelial Cell 1 /hpf 03/10/22 21:00 Amorphous Sediment Not Reportable 03/10/22 21:00 Urine Bacteria 1+ /hpf (NONE) H 03/10/22 21:00 Salicylates 0.4 mg/dL (3-10) L 03/10/22 22:14 Urine Opiates Screen Negative ng/mL (Negative) 03/10/22 21:00 Acetaminophen < 5.0 ug/mL (10-30) L 03/10/22 22:14 Ur Barbiturates Screen Negative ng/mL (Negative) 03/10/22 21:00 Ur Phencyclidine Scrn Negative ng/mL (Negative) 03/10/22 21:00 Ur Amphetamines Screen Negative ng/mL (Negative) 03/10/22 21:00 U Benzodiazepines Scrn Negative ng/mL (Negative) 03/10/22 21:00 Urine Cocaine Screen Negative ng/mL (Negative) 03/10/22 21:00 U Marijuana (THC) Screen Positive ng/mL (Negative) H 03/10/22 21:00 Ethyl Alcohol < 10 mg/dL (0-10) 03/10/22 22:14 SARS-CoV-2 Ag (Rapid) negative (Negative) 03/10/22 23:30 Critical Care Time Critical Care Time: Critical Care Time: Yes Total Critical Care Time: 60 Attestation: The high probability of a clinically significant, sudden or life threatening deterioration of the patient's cardiovascular respiratory neurologic system(s) required my full and direct attention, intervention and personal management. The critical care time is as shown. This time is in addition to time spent performing any reported procedures but includes the following: [x] Data and vital sign review and interpretation [x] Patient assessment, examination and intervention [x] Documentation [x] Medication orders and management Discharge Plan Discharge Patient Disposition: Transfer to ED Clinical Impression: Cardiac arrest, Methamphetamine abuse in remission, Major depressive disorder, Seizure Condition: Stable Prescriptions: No Action naloxone [Narcan] 4 mg/actuation spray,non-aerosol 4 mg intranasal Q2M PRN (Reason: opioid overdose) Qty: 2 4RF Rx Instructions: spray 1 dose in 1 nostril alternate nostrils w each dose until help arrives docusate sodium 100 mg capsule 100 mg PO BID Qty: 60 3RF Rx Instructions: Take one capsule twice per day levofloxacin 750 mg tablet 750 mg PO DAILY 10 Days Qty: 10 0RF prednisone 20 mg tablet 60 mg PO DAILY 5 Days Qty: 15 0RF albuterol sulfate 90 mcg/actuation HFA aerosol inhaler 2 inh inhalation Q4H PRN (Reason: shortness of breath or wheezing) Qty: 6.7 0RF promethazine 25 mg tablet 25 mg PO BID PRN (Reason: Nausea And Vomiting) 15 Days Qty: 30 2RF Rx Instructions: Take one tablet twice per day as needed for nausea/vomiting pantoprazole [Protonix] 20 mg tablet,delayed release (DR/EC) 20 mg PO BID Qty: 60 1RF Rx Instructions: Take one tablet twice per day quetiapine [Seroquel XR] 150 mg tablet extended release 24 hr 150 mg PO .9 pm Qty: 30 3RF Rx Instructions: Take one tablet at 9 pm amoxicillin-pot clavulanate 875-125 mg tablet 1 tab PO BID Qty: 20 0RF Rx Instructions: for infection lidocaine 5 % gel See Rx Instructions .ROUTE .COMPLEX Qty: 10 1RF Rx Instructions: apply a small amount to gum line [id number] prn pain; naltrexone 50 mg tablet 50 mg PO .morning Qty: 30 3RF Rx Instructions: Take one tablet every morning cyproheptadine 4 mg tablet 4 mg PO BEDTIME Qty: 30 2RF Rx Instructions: Take one tablet at bedtime duloxetine [Cymbalta] 60 mg capsule,delayed release(DR/EC) 60 mg PO .morning Qty: 30 3RF Rx Instructions: Take one capsule every morning Referrals: Daniel Acuna MD [Primary Care Provider] - Coding Level of Care Code ED Online Program Coordinator for Chg 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 Documented by User: Dang Lima MD 03/12/22 08:24 PFS ED PFSH: Medical History Cannabis abuse, uncomplicated Depression Generalized anxiety disorder Major depressive disorder Methamphetamine abuse in remission Nicotine dependence, cigarettes, uncomplicated No pertinent past medical history neghx: htn,dm,thyroid,dvt/pe Opioid dependence Post-traumatic stress disorder, chronic Preeclampsia Psychiatric care Surgical History Delivery by section S/P section (~12/23/18) per Dr. Acuna at [facility] [place] S/P cholecystectomy S/P wisdom tooth extraction Family History Mother Thyroid condition Hypertension Grandmother Breast cancer paternal Father Diabetes Heart disease Sister Thyroid condition Social History Smoking and tobacco status: current every day smoker Alcohol intake: never Additional social history: Tobacco use: Current everyday smoker; 0.25pk daily Alcohol use: Daily Drug use: / gram smoked at hs; has med marijuana card Course Vital Signs: Vital signs: Vital Signs Pulse Rate 109 H 03/11/22 01:05 Respiratory Rate 12 03/11/22 01:05 Blood Pressure 109/82 03/11/22 01:05 Pulse Oximetry 98 03/11/22 01:05 Oxygen Delivery Me thod 03/10/22 20:05 Fraction of Inspir ed Oxygen 30 03/11/22 00:41 MDM - Overdose Lab Data 03/10/22 20:14 03/10/22 20:[address] 03/10/22 20:11 IMPRESSION: No acute intracranial abnormality. Chest X-Ray 03/10/22 20:45 IMPRESSION: 1. Endotracheal tube tip seen in place 3.9 cm above the margei. 2. Enteric tube tip below the diaphragm extending inferiorly off the field of view. Laboratory Results WBC 39.2 10^3/uL (4.0-10.0) H* 03/10/22 20:14 RBC 5.01 10^6/uL (4.1-5.3) 03/10/22 20:14 Hgb 13.1 g/dL (11.5-15.3) 03/10/22 20:14 Hct 42.1 % (37.0-47.0) 03/10/22 20:14 MCV 84.0 fl (81-99) 03/10/22 20:14 MCH 26.1 pg (28.0-34.0) L 03/10/22 20:14 MCHC 31.1 g/dL (30.0-36.0) 03/10/22 20:14 RDW 18.0 % (12.1-15.1) H 03/10/22 20:14 Plt Count 435 10^3/cmm (130-400) H 03/10/22 20:14 MPV 10.5 fL (7.4-10.4) H 03/10/22 20:14 Lymph % (Auto) Not Reportable 03/10/22 20:14 [place] % (Auto) Not Reportable 03/10/22 20:14 Lymph # (Auto) Not Reportable 03/10/22 20:14 [place] # (Auto) Not Reportable 03/10/22 20:14 Total Counted 100 (0-100) 03/10/22 20:14 Atypical Lymphs % 0.0 % (0-5) 03/10/22 20:14 Absolute Neutrophils 29.4 10^3/cmm (1.4-6.5) H 03/10/22 20:14 Segmented Neutrophils 48 % 03/10/22 20:14 Abs Segm Neuts (Man) 18.8 10/cmm (1.6-7.1) H 03/10/22 20:14 Band Neutrophils 27.0 % 03/10/22 20:14 Abs Band Neuts (Man) 10.6 10^3/cmm (0.0-1.2) H 03/10/22 20:14 Absolute Lymphocytes 5.1 10^3/cmm (1.2-3.4) H 03/10/22 20:14 Lymphocytes (Manual) 13 % 03/10/22 20:14 Monocytes (Manual) 11.0 % 03/10/22 20:14 Absolute Monocytes 4.3 10^3/cmm (0.1-0.6) H 03/10/22 20:14 Eosinophils (Manual) 1 % 03/10/22 20:14 Absolute Eosinophils 0.3 10^3/cmm (0.0-0.7) 03/10/22 20:14 Basophils (Manual) 0.0 % 03/10/22 20:14 Absolute Basophils 0.0 10^3/cmm (0.0-0.2) 03/10/22 20:14 Toxic Granulation 1+ H 03/10/22 20:14 Toxic Vacuolation 2+ H 03/10/22 20:14 Platelet Estimate Increased (Normal) H 03/10/22 20:14 Specimen Type Arterial 03/10/22 20:24 Sample Site Radial, left 03/10/22 20:24 ABG pH 7.33 (7.35-7.45) L 03/10/22 20:24 ABG pCO2 27.9 mmHg (35-45) L 03/10/22 20:24 ABG pO2 438.0 mmHg (80.0-100.0) H 03/10/22 20:24 ABG HCO3 14.6 mmol/L (22-26) L 03/10/22 20:24 ABG O2 Saturation > 100.0 03/10/22 20:24 ABG Base Excess -9.9 mmol/L (-2.0-2.0) L 03/10/22 20:24 Jacek Test Pos 03/10/22 20:24 A-a O2 Gradient 30.1 mmHg (5-10) H 03/10/22 20:24 Hematocrit 39.3 % (37-47) 03/10/22 20:24 Hgb O2 Saturation 99.1 % (95-100) 03/10/22 20:24 Carboxyhemoglobin 0.9 %THgb (0.4-20.1) 03/10/22 20:24 Methemoglobin 0.5 % (0.4-1.5) 03/10/22 20:24 Total Hemoglobin 12.8 g/dL (12-16) 03/10/22 20:24 Sodium 140.0 mmol/L (131-143) 03/10/22 20:24 Potassium 3.6 mmol/L (3.5-5.0) 03/10/22 20:24 Glucose 313.0 mg/dL (70-115) H 03/10/22 20:24 Ionized Calcium 1.1 mmol/L (1.1-1.4) 03/10/22 20:24 O2 Delivery Device Vent 03/10/22 20:24 FiO2 100.0 % 03/10/22 20:24 Tidal Volume 0.45 03/10/22 20:24 PEEP 8.0 cmH20 03/10/22 20:24 Chief Medical Officer ID Leo 03/10/22 20:24 Sodium 138 mmol/L (136-145) 03/10/22 20:14 Potassium 3.7 mmol/L (3.5-5.1) 03/10/22 20:14 Chloride 95 mmol/L (98-107) L 03/10/22 20:14 Carbon Dioxide 12 mmol/L (22-29) L 03/10/22 20:14 Anion Gap 34.7 (5-19) H 03/10/22 20:14 BUN 8 mg/dL (6-20) 03/10/22 20:14 Creatinine 1.1 mg/dL (0.5-0.9) H 03/10/22 20:14 GFR Calculation 62.1 mL/min (90-130) L 03/10/22 20:14 Glucose 331 mg/dL (65-115) H 03/10/22 20:14 Calculated Osmolality 297 mOsm/kg (285-295) H 03/10/22 20:14 Lactic Acid 13.7 mmol/L (0.5-2.2) H* 03/10/22 20:14 Lactic Acid (Sepsis) 6.5 mmol/L (0.5-2.2) H* 03/10/22 22:40 Calcium 9.3 mg/dL (8.5-10.5) 03/10/22 20:14 Total Bilirubin 0.5 mg/dL (0.15-1.2) 03/10/22 20:14 AST 450 U/L (0-32) H 03/10/22 20:14 ALT 198 U/L (0-33) H 03/10/22 20:14 Alkaline Phosphatase 147 U/L (35-105) H 03/10/22 20:14 Creatine Kinase 293 U/L (26-192) H 03/10/22 20:14 Troponin T Baseline 242 ng/L (0-10) H* 03/10/22 20:14 Troponin T 120 Minute 387.4 ng/L (0-10) H 03/10/22 22:14 Delta Troponin T 145.4 ABS# (0-10) H* 03/10/22 22:14 Total Protein 7.0 g/dL (6.6-8.7) 03/10/22 20:14 Albumin 3.8 g/dL (3.5-5.2) 03/10/22 20:14 Globulin 3.2 g/dL (1.3-4.6) 03/10/22 20:14 HCG, Qual Negative (Negative) 03/10/22 20:14 Urine Color Yellow (Yellow) 03/10/22 21:00 Urine Appearance Sl hazy (CLEAR) A 03/10/22 21:00 Urine pH 5 (5-7) 03/10/22 21:00 Ur Specific [place] 1.025 (1.005-1.030) 03/10/22 21:00 Urine Protein 3+ (Negative) H 03/10/22 21:00 Urine Glucose (UA) Trace (Normal) H 03/10/22 21:00 Urine Ketones 1+ (Negative) H 03/10/22 21:00 Urine Blood 3+ (Negative) H 03/10/22 21:00 Urine Nitrate Negative (Negative) 03/10/22 21:00 Urine Bilirubin Neg (Negative) 03/10/22 21:00 Urine Urobilinogen Neg mg/dL (Negative) 03/10/22 21:00 Ur Leukocyte Esterase Negative (Negative) 03/10/22 21:00 Urine RBC 5-10 /hpf (0-2) H 03/10/22 21:00 Urine WBC 15-25 /hpf (0-5) H 03/10/22 21:00 Ur Squamous Epith Cells 0-4 /hpf (0-5) H 03/10/22 21:00 Ur Renal Epithelial Cell 1 /hpf 03/10/22 21:00 Amorphous Sediment Not Reportable 03/10/22 21:00 Urine Bacteria 1+ /hpf (NONE) H 03/10/22 21:00 Salicylates 0.4 mg/dL (3-10) L 03/10/22 22:14 Urine Opiates Screen Negative ng/mL (Negative) 03/10/22 21:00 Acetaminophen < 5.0 ug/mL (10-30) L 03/10/22 22:14 Ur Barbiturates Screen Negative ng/mL (Negative) 03/10/22 21:00 Ur Phencyclidine Scrn Negative ng/mL (Negative) 03/10/22 21:00 Ur Amphetamines Screen Negative ng/mL (Negative) 03/10/22 21:00 U Benzodiazepines Scrn Negative ng/mL (Negative) 03/10/22 21:00 Urine Cocaine Screen Negative ng/mL (Negative) 03/10/22 21:00 U Marijuana (THC) Screen Positive ng/mL (Negative) H 03/10/22 21:00 Ethyl Alcohol < 10 mg/dL (0-10) 03/10/22 22:14 SARS-CoV-2 Ag (Rapid) negative (Negative) 03/10/22 23:30 Critical Care Time Critical Care Time: Attestation: The high probability of a clinically significant, sudden or life threatening deterioration of the patient's cardiovascular respiratory neurologic system(s) required my full and direct attention, intervention and personal management. The critical care time is as shown. This time is in addition to time spent performing any reported procedures but includes the following: [x] Data and vital sign review and interpretation [x] Patient assessment, examination and intervention [x] Documentation [x] Medication orders and management Chart was opened inadvertently. I do not know this patient and have not seen this patient or been involved in his/her care Discharge Plan Discharge Patient Disposition: Transfer to ED Clinical Impression: Cardiac arrest, Methamphetamine abuse in remission, Major depressive disorder, Seizure Condition: Stable Prescriptions: No Action naloxone [Narcan] 4 mg/actuation spray,non-aerosol 4 mg intranasal Q2M PRN (Reason: opioid overdose) Qty: 2 4RF Rx Instructions: spray 1 dose in 1 nostril alternate nostrils w each dose until help arrives docusate sodium 100 mg capsule 100 mg PO BID Qty: 60 3RF Rx Instructions: Take one capsule twice per day levofloxacin 750 mg tablet 750 mg PO DAILY 10 Days Qty: 10 0RF prednisone 20 mg tablet 60 mg PO DAILY 5 Days Qty: 15 0RF albuterol sulfate 90 mcg/actuation HFA aerosol inhaler 2 inh inhalation Q4H PRN (Reason: shortness of breath or wheezing) Qty: 6.7 0RF promethazine 25 mg tablet 25 mg PO BID PRN (Reason: Nausea And Vomiting) 15 Days Qty: 30 2RF Rx Instructions: Take one tablet twice per day as needed for nausea/vomiting pantoprazole [Protonix] 20 mg tablet,delayed release (DR/EC) 20 mg PO BID Qty: 60 1RF Rx Instructions: Take one tablet twice per day quetiapine [Seroquel XR] 150 mg tablet extended release 24 hr 150 mg PO .9 pm Qty: 30 3RF Rx Instructions: Take one tablet at 9 pm amoxicillin-pot clavulanate 875-125 mg tablet 1 tab PO BID Qty: 20 0RF Rx Instructions: for infection lidocaine 5 % gel See Rx Instructions .ROUTE .COMPLEX Qty: 10 1RF Rx Instructions: apply a small amount to gum line [id number] prn pain; naltrexone 50 mg tablet 50 mg PO .morning Qty: 30 3RF Rx Instructions: Take one tablet every morning cyproheptadine 4 mg tablet 4 mg PO BEDTIME Qty: 30 2RF Rx Instructions: Take one tablet at bedtime duloxetine [Cymbalta] 60 mg capsule,delayed release(DR/EC) 60 mg PO .morning Qty: 30 3RF Rx Instructions: Take one capsule every morning Referrals: Daniel Acuna MD [Primary Care Provider] - Coding Level of Care Code ED Online Program Coordinator for Chg 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
[2022-03-10] MEDS: LORazepam 2 mg/mL INJ 1 mL (20:32)
[2022-03-10] MEDS: ondansetron 2 mg/ML SDV 2 mL 4 MG IVP (20:35)
[2022-03-10] MEDS: pantoprazole 40 mg SDV IVP (20:38)
[2022-03-10 20:39] LABS: HCG, Serum Qual Negative (Negative)
[2022-03-10 20:41] LABS: Alanine Aminotransferase 198 U/L (0-33); Albumin Level 3.8 g/dL (3.5-5.2); Alkaline Phosphatase 147 U/L (35-105); Aspartate Amino Transferase 450 U/L (0-32); Blood Urea Nitrogen 8 mg/dL (6-20); Calcium 9.3 mg/dL (8.5-10.5); Carbon Dioxide 12 mmol/L (22-29); Chloride 95 mmol/L (98-107); Creatine Phosphokinase 293 U/L (26-192); Globulin 3.2 g/dL (1.3-4.6); Glomerular Filtration Rate 62.1 mL/min (90-130); Glucose 331 mg/dL (65-115); Osmolality Calculated 297 mOsm/kg (285-295); Sodium 138 mmol/L (136-145); Total Bilirubin 0.5 mg/dL (0.15-1.2)
[2022-03-10] MEDS: midazolam 1 mg/mL INJ 2 mL 6 MG IVP (20:44)
--- NOTE | 2022-03-10 20:45 | XRR_ITS ---
PROCEDURE INFORMATION: Exam: XR Chest Exam date and time: 03/10/2022 8:00 PM Age: 22 years old Clinical indication: Device placement; Other: Et; Patient HX: Od, unresponsive; Additional info: Tube placement TECHNIQUE: Imaging protocol: Radiologic exam of the chest. Views: 1 view. COMPARISON: CR XR chest 1V portable [id number] 08/02/2021 7:35 AM FINDINGS: Tubes, catheters and devices: Endotracheal tube tip seen in place 3.9 cm above the margie. Enteric tube tip below the diaphragm extending inferiorly off the field of view. Lungs: Unremarkable. No consolidation. Pleural spaces: Unremarkable. No pleural effusion. No pneumothorax. Heart/Mediastinum: Unremarkable. No cardiomegaly. Bones/joints: Unremarkable. XR/XR chest 1V portable [id number] IMPRESSION: 1. Endotracheal tube tip seen in place 3.9 cm above the margie. 2. Enteric tube tip below the diaphragm extending inferiorly off the field of view.
[2022-03-10 20:50] LABS: Anion Gap 34.7 (5-19); Potassium 3.7 mmol/L (3.5-5.1)
[2022-03-10 20:51] LABS: Lactic Sepsis W/Reflex 13.7 mmol/L (0.5-2.2)
[2022-03-10 20:52] LABS: ABG PCO2 27.9 mmHg (35-45); ABG PH Result 7.33 (7.35-7.45); Alveolar-Arterial Oxygen Gradi 30.1 mmHg (5-10); Arterial Blood Gas Hematocrit 39.3 % (37-47); Base Excess ABG -9.9 mmol/L (-2.0-2.0); Blood Gas Allen Test Pos; Blood Gas Operator Identificat JB; Blood Gas Sample Site Radial, left; Blood Gas Sample Type Arterial; Blood Gas Tidal Volume 0.45; Carboxyhemoglobin 0.9 %THgb (0.4-20.1); HCO3 ABG 14.6 mmol/L (22-26); HGB O2 Sat 99.1 % (95-100); Ionized Calcium Level - ABG 1.1 mmol/L (1.1-1.4); Methemoglobin 0.5 % (0.4-1.5); Oxygen Device VENT; Oxygen Saturation ABG > 100.0; Potassium Level - ABG 3.6 mmol/L (3.5-5.0); Total Hemoglobin 12.8 g/dL (12-16)
[2022-03-10 21:09] LABS: White Blood Count 39.2 10^3/uL (4.0-10.0)
[2022-03-10 21:10] LABS: Total Cells Counted 100 (0-100)
[2022-03-10] MEDS: sodium bicarbonate 8.4% 1 mEq/mL 50mL Syr 100 MEQ IV (21:13)
[2022-03-10] MEDS: propofol 1,000 MG/100 ML INJ 3.36 MG IV (21:15)
[2022-03-10 21:17] LABS: Absolute Segmented Neutrophil 18.8 10/cmm (1.6-7.1); Segmented Neutrophils 48 %
[2022-03-10 21:18] LABS: Absolute Eosinophils 0.3 10^3/cmm (0.0-0.7); Absolute Neutrophil 29.4 10^3/cmm (1.4-6.5); Band Neutrophils Absolute 10.6 10^3/cmm (0.0-1.2); Eosinophils 1 %; Lymphocytes 13 %; Lymphocytes Absolute 5.1 10^3/cmm (1.2-3.4); Monocytes Absolute 4.3 10^3/cmm (0.1-0.6); Platelet Estimate Increased (Normal); Toxic Granulation 1+; Toxic Vacuolation 2+
[2022-03-10] MEDS: sodium chlor 0.9% + KCl 20 mEq 20 MEQ/1,000 ML BAG 125 MEQ IV (21:20)
[2022-03-10 21:41] LABS: Amphetamines Screen Urine Negative (Negative); Barbiturates Screen Urine Negative (Negative); Benzodiazepines Screen Urine Negative (Negative); Cocaine Screen Urine Negative (Negative); Opiate Screen Urine Negative (Negative); PCP Screen Urine Negative (Negative); THC Screen Urine Positive (Negative)
[2022-03-10 21:54] LABS: Add Urine Microscopic? YES; Bilirubin Urine Neg (Negative); Blood Urine 3+ (Negative); Glucose Urine UA Trace (Normal); Ketones Urine 1+ (Negative); Leukocyte Esterase Urine Negative (Negative); Nitrate Urine Negative (Negative); Protein Urine 3+ (Negative); Specific Gravity, Urine 1.025 (1.005-1.030); Urine Appearance SL Hazy (CLEAR); Urine Color Yellow (Yellow); Urobilinogen Urine Neg (Negative); pH Urine 5 (5-7)
[2022-03-10 21:56] LABS: Renal Epithelial Cells Urine 1 /hpf; Squamous Epithelial Cell Urine 0-4 /hpf (0-5); WBC Urine 15-25 /hpf (0-5)
[2022-03-10 21:57] LABS: Add Urine Culture? Yes; Bacteria Urine 1+ /hpf
[2022-03-10 22:06] LABS: Reflex Lactate Order REFLEX LACTIC ORDERD
[2022-03-10] MEDS: piperacillin-tazobactam 3.375 GM in sodium chloride 0.9% (plus) 50 ML IV (22:15)
[2022-03-10 22:18] LABS: Troponin(5th) Baseline 242 ng/L (0-10)
--- NOTE | 2022-03-10 22:23 | ECG_ITS ---
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 Measurements Intervals [place] Rate: 95 P: 106 UT: 100 QRS: 114 QRSD: 105 T: 77 QT: 440 QTc: 555 Interpretive Statements SINUS RHYTHM WITH SHORT UT INTERVAL LEFT POSTERIOR FASCICULAR BLOCK [QRS AXIS > 109, INFERIOR Q] ST DEVIATION AND MODERATE T-WAVE ABNORMALITY, CONSIDER ANTERIOR ISCHEMIA [-0.1+ mV T-WAVE IN V3/V4] Compared to ECG 03/10/2022 20:21:02 Left posterior fascicular block now present Sinus arrhythmia no longer present T-wave abnormality still present Possible ischemia still present Electronically Signed On 03-11-2022 11:08:35 TAX COMPLIANCE REPRESENTATIVE by Dani Palmer M.D. [id number]
[2022-03-10 22:48] LABS: Troponin 5 2HR 387.4 ng/L (0-10); Troponin 5 2HR Delta 145.4 ABS# (0-10)
[2022-03-10] MEDS: propofol 1,000 MG/100 ML INJ 16.81 MG IV (23:01)
[2022-03-10 23:27] LABS: Salicylate 0.4 mg/dL (3-10)
[2022-03-10] MEDS: sodium chloride 0.9% 1,000 ML 999 ML IV (23:32)
[2022-03-10 23:35] LABS: Acetaminophen < 5.0 ug/mL (10-30); Alcohol Level < 10 mg/dL (0-10)
[2022-03-10 23:49] LABS: Lactic Acid level (Lactate) 6.5 mmol/L (0.5-2.2)
[2022-03-10 23:54] LABS: SARS Covid-2 Antigen negative (Negative)
[2022-03-11] VITALS (9 sets, daily range): BP systolic 101–113; BP diastolic 74–82; PULSE 100–109; RESP 12–20; O2SAT 98–100
== END 2022-03-11 01:44 ==
PROVIDERS: Emergency Provider Family Medicine; PCP Family Medicine
DX: I46.9 Cardiac arrest, cause unspecified (principal); F15.11 Other stimulant abuse, in remission; F32.9 Major depressive disorder, single episode, unspecified; R56.9 Unspecified convulsions; Z20.822 Contact with and (suspected) exposure to COVID-19; F17.210 Nicotine dependence, cigarettes, uncomplicated
CPT/HCPCS: 36415; 36600; 70450; 71045; 80051; 80053; 80306; 80307; 81001; 82330; 82550; 82805; 83605; 84484; 84703; 85007; 85025; 87040; 87086; 87426; 93005; 94002; 96365; 96367; 96375; 99291; 99292; C9113; J1953; J2060; J2250; J2405; J2543; J2704; J3480; J7030